=== PATIENT | female | born 1960 | race Two or more races ===

== ENCOUNTER 2020-12-15 13:57 | Outpatient (REF) | payer OTHER, SELFPAY ==
[2020-12-15 15:47] LABS: MANUAL DIFF FLAG NO
[2020-12-15 15:55] LABS: Basophils Percent Auto 0.4 % (0-2); Eosinophils Absolute Auto 0.1 X10*3/uL (0.0-0.4); Eosinophils Percent Auto 1.3 % (0-4); Hematocrit 39.1 % (37-47); Hemoglobin 12.3 g/dl (12.0-16.0); Imm Gran Abs Auto 0.03 X10*3/uL (0.00-0.03); Imm Gran Pct Auto 0.3 % (0.0-0.4); Lymphocytes Absolute Auto 3.9 X10*3/uL (1.2-4.9); Lymphocytes Percent Auto 41.9 % (20-40); Mean Corpuscular HGB Conc 31.5 g/dl (31.0-35.0); Mean Corpuscular Hemoglobin 30.3 pg (27.0-33.0); Mean Corpuscular Volume 96.3 fL (80-98); Mean Platelet Volume 11.1 fL (9.4-12.3); Monocytes Absolute Auto 0.5 X10*3/uL (0.1-1.2); Monocytes Percent Auto 5.6 % (2-11); Neutrophils Absolute Auto 4.7 X10*3/uL (2.0-8.3); Neutrophils Percent Auto 50.5 % (45-73); Platelet Count 228 X10*3/uL (160-400); Red Blood Count 4.06 X10*6/uL (4.20-5.50); Red Cell Distribution Width 14.1 % (11.0-16.0); White Blood Count 9.3 X10*3/uL (4.8-10.8)
[2020-12-15 16:21] LABS: Anion Gap 12 (12-20); Blood Urea Nitrogen 10 mg/dL (9-16); Calcium 9.8 mg/dL (8.4-10.2); Carbon Dioxide 28 mmol/L (22-29); Chloride 105 mmol/L (96-108); Estimated Glomerular Filt Rate > 60; Glucose Random 89 mg/dL (60-115); Potassium 4.2 mmol/L (3.3-5.1); Sodium 141 mmol/L (135-145)
[2020-12-15 16:46] LABS: Erythrocyte Sedimentation Rate 34 MM/HR (0-20)
[2020-12-16 20:51] LABS: Immunoglobulin E 14 kU/L (<OR=114)
[2020-12-17 15:46] LABS: Scleroderma 70 Antibody <1.0 NEG AI (<1.0 NEG)
[2020-12-17 16:02] LABS: Cyclic Citrullinated Peptide <16 UNITS
[2020-12-18 12:56] LABS: Angiotensin Converting Enzyme 61 U/L (9-67)
[2020-12-18 13:26] LABS: Anti Nuclear Antibody Screen NEGATIVE (NEGATIVE)
[2020-12-20 13:17] LABS: Asperg fumigatus Precip Abs NEGATIVE (NEGATIVE); Micropoly faeni Abs NEGATIVE (NEGATIVE); Pigeon serum Abs NEGATIVE (NEGATIVE); Saccharo pora viridis Abs NEGATIVE (NEGATIVE); Thermo candidus Abs NEGATIVE (NEGATIVE); Thermoa vulgaris #1 NEGATIVE (NEGATIVE)
== END 2020-12-15 13:58 | disposition home or self-care (01) ==
LOC: HO.LAB 13:57
PROVIDERS: PCP Physician Assistant; Visit Provider Hospitalist
DX: Z23 Encounter for immunization (principal); J84.9 Interstitial pulmonary disease, unspecified; R91.8 Other nonspecific abnormal finding of lung field; F17.200 Nicotine dependence, unspecified, uncomplicated; Z71.6 Tobacco abuse counseling
CPT/HCPCS: 36415; 80048; 82164; 82785; 85025; 85652; 86038; 86039; 86200; 86235; 86331; 86606; 86609; 90686; 99202

== ENCOUNTER 2021-01-22 14:15 | Outpatient (REF) | payer OTHER, SELFPAY ==
--- NOTE | 2021-01-22 17:25 | PFT_ITS ---
Forced vital capacity, FEV1, LCS34-23, and MVV are all normal. Post bronchodilator therapy, there is no significant change. Total lung capacity normal. Residual volume is slightly decreased. Diffusion capacity moderately decreased. CONCLUSION: Normal pulmonary function test without evidence of obstructive or restrictive pulmonary disorder. Moderate decrease in the diffusion capacity and residual volume may be due to technical factors are due to pulmonary vascular disease or nonspecific factors. Clinical correlation is recommended. MD JENIFER Zavala/LUZ / [id number]
== END 2021-01-22 14:16 | disposition home or self-care (01) ==
LOC: HO.RESP 14:15
PROVIDERS: PCP Physician Assistant; Visit Provider Hospitalist
DX: R91.8 Other nonspecific abnormal finding of lung field (principal); J84.9 Interstitial pulmonary disease, unspecified; J45.909 Unspecified asthma, uncomplicated; F17.200 Nicotine dependence, unspecified, uncomplicated
CPT/HCPCS: 94060; 94727; 94729; 99212

== ENCOUNTER → 2021-08-18 14:26 | Outpatient (BNVA) | payer OTHER, SELFPAY | PROVIDERS: PCP Physician Assistant; Visit Provider Hospitalist | DX: J84.9 Interstitial pulmonary disease, unspecified (principal); J45.909 Unspecified asthma, uncomplicated; R91.8 Other nonspecific abnormal finding of lung field; F17.200 Nicotine dependence, unspecified, uncomplicated; Z79.899 Other long term (current) drug therapy | CPT/HCPCS: 99212 ==

== ENCOUNTER 2021-10-28 12:41 | Outpatient (REF) | payer OTHER, SELFPAY ==
--- NOTE | ~2021-10-28 | CT_ITS ---
EXAMINATION: CT CHEST WITHOUT CONTRAST CLINICAL INFORMATION: Abnormal lung findings. COMPARISON: None TECHNIQUE: Multidetector volumetric CT imaging of the chest was done. Axial MIP volume rendering provided. Sagittal and coronal reformatted images were obtained. This CT examination was performed using dose optimization techniques as appropriate, variously including the following: *Automated exposure control *Adjustment of mA and/or kV according to patient size (this includes techniques or standardized protocols for targeted exams where dose is matched to indication/reason for exam; i.e. 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 LUNGS: The lungs are slightly hyperinflated with subpleural fine reticular stranding and some groundglass density in both lower lobes. No acute consolidation or mass seen. There is a calcified centimeter nodule left lower lobe anterobasal segment. There is bilateral lower lobe bronchiectasis without wall thickening or debris. Moderate groundglass attenuation and almost honeycombing appearance seen in the anterior segment of left upper lobe suspicious of chronic interstitial lung disease. MEDIASTINUM: The thyroid lobes are symmetrical and normal. The central trachea and the bronchi is widely patent. Heart size and the great vessels are normal caliber. There are coronary artery calcifications present. No pericardial effusion seen. No abnormal size mediastinal lymph nodes. PLEURA: No pleural effusion, thickening or calcification. AXILLA: Small shotty lymph nodes in the axilla. The chest wall is unremarkable. UPPER ABDOMEN: Visualized liver, spleen, pancreas unremarkable. OSSEOUS STRUCTURES: Unremarkable. CT/CT chest wo IV con IMPRESSION: 1. Bilateral interstitial lung disease with subpleural fine reticular thickening and groundglass attenuation suggestive of interstitial lung disease likely of UIP type. There is also involvement of the left upper lobe with groundglass attenuation and almost honeycombing. Correlate with clinical history. No acute pneumonic consolidation. 2. No abnormal mediastinal or hilar adenopathy. Fleischner guidelines were followed.
== END 2021-10-28 12:42 | disposition home or self-care (01) ==
LOC: HO.CT 12:41
PROVIDERS: PCP Physician Assistant; Visit Provider Hospitalist
DX: R91.8 Other nonspecific abnormal finding of lung field (principal)
CPT/HCPCS: 71250

== ENCOUNTER → 2021-11-27 13:01 | Outpatient (BNVA) | payer OTHER, SELFPAY | PROVIDERS: PCP Physician Assistant; Visit Provider Hospitalist | DX: J84.9 Interstitial pulmonary disease, unspecified (principal); R91.8 Other nonspecific abnormal finding of lung field; J45.909 Unspecified asthma, uncomplicated; F17.210 Nicotine dependence, cigarettes, uncomplicated | CPT/HCPCS: 99212 ==

== ENCOUNTER 2022-07-23 13:23 | Outpatient (REF) | payer MEDICAID, SELFPAY ==
--- NOTE | ~2022-07-23 | XR_ITS ---
EXAMINATION: XR CHEST CLINICAL INFORMATION: Dorsalgia COMPARISON: Chest CT October 28, 2021 (report only) TECHNIQUE: 2 views of the chest were obtained. FINDINGS: Cardiac silhouette is normal in size. The lungs are well aerated. There is no lobar consolidation. No pleural effusion or pneumothorax. Suspected small calcified granuloma the left lower lung. Mild degenerative changes of the spine. XR/XR chest 2V IMPRESSION: No acute pulmonary pathology.
== END 2022-07-23 13:24 | disposition home or self-care (01) ==
LOC: HO.XRAY 13:23
PROVIDERS: PCP Physician Assistant; Visit Provider Hospitalist
DX: J84.9 Interstitial pulmonary disease, unspecified (principal); R91.8 Other nonspecific abnormal finding of lung field; J45.909 Unspecified asthma, uncomplicated; F17.200 Nicotine dependence, unspecified, uncomplicated; Z71.6 Tobacco abuse counseling
CPT/HCPCS: 71046; 99212

== ENCOUNTER 2022-10-26 14:09 | Outpatient (AMB) | payer MEDICAID, SELFPAY ==
--- NOTE | 2022-10-26 14:29 | MHC.OFFVIS ---
Intake Vital Signs 10/26/22 14:31 Height 5 ft 1 in Weight 157 lb 10.088 oz BMI 29.8 Pulse 66 Pulse Source Pulse Oximeter Pulse Oximetry (%) 98 Oxygen Delivery Method Room Air Intake Visit Reasons: asthma Security System Analyst Required: No Allergies No Known Allergies [No Known Allergies*] Allergy (Unverified 10/26/22 14:32) HPI HPI Comments History of Present Illness Details The patient is a 62 year-old woman with a long history of tobacco dependency and COPD who apparently has been complaining of worsening dyspnea on exertion and cough. The patient states that recently she did undergo a CT scan of the chest as per the lung cancer screening program because she does have pulmonary nodules. She did follow-up with her primary care doctor who told her that if there were other changes suggesting of interstitial lung disease on the CT scan. Therefore she was referred to Pulmonary. On further questioning the site smoking she denies any other recreational drugs. She denies being exposed to any farm work or birds. The patient denies any mold in the house. She has tried to quit smoking but has been very hard for her. The patient is willing to try the Nicotrol inhaler to see if we can get her away from the smoke That is resulting in moles of the injury to her lungs In airways. I was able to personally review the CAT scans from 2018 and also 2020 with the patient. Back in 2018 she also had interstitial changes primarily in the periphery of her lungs bilaterally with some evidence of honeycombing in the periphery which is concerning. It appears to be also involving the bases but not as predominant. Does have a subtle appearance of usual interstitial pneumonia (UIP) versus a chronic eosinophilic pneumonia. The patient denies any rashes or any joint discomfort to suggest a connective tissue disease. However, this needs to be continued in the differential. I did also review her CT scan from 2020 demonstrating some interval progression of the subpleural process suggesting a progressive type of interstitial lung disease. Smoking can also result in pulmonary fibrosis the patient is aware that and she is motivated to quitting. She has minimal evidence of emphysema also noted. 01/22/2021 the patient is here for a pulmonary follow-up visit. Overall she is doing well from a respiratory status. She denies any worsening shortness of breath or any chest discomfort. She did undergo blood work recently we did reviewed. Her evaluation for interstitial lung disease was negative for any connective tissue conditions to hypersensitivity conditions. The patient also underwent pulmonary function studies demonstrating no obstructive nor restrictive ventilatory defects. Although, her total lung capacity was low normal. She however had a moderate diffusion impairment. Explained to the patient that will be need to continue monitoring closely for any progression. She is to call if any worsening respiratory symptoms arise. She is due for repeat CT scan of the chest based on the lung cancer screening program and July of 2021. as far as other potential triggers we did talk about reflux disease which she has. The patient will work on her reflux diet and will try to sleep elevated. In regards of her asthma the patient did have 1 episode where she woke up short of breath and chest tightness. She did get relief with her rescue inhaler. I do think that based on her symptoms is reasonable to start her on a maintenance inhaler. 08/18/2021 the patient is here for a pulmonary follow-up visit. Overall the patient continues to have shortness of breath and cough. Her symptoms have been getting worse but primarily because she ran out of her medication. Will make sure that she has all her medications available to avoid any rebound symptoms. In the meantime she has not heard from [facility] regarding her lung cancer screening program CT scan. We did review her CT scan that she had back in July 2020 with small pulmonary nodules but more concerning was a degree of interstitial lung disease as she has bilaterally in the periphery more in the mid lung area. Next week consistent with an UIP pattern IPF. But, still concerning. The patient did have a connective tissue disease workup in addition to hypersensitivity pneumonitis panel and workup was completely negative. Explained to the patient that smoking related interstitial lung conditions are indeed in differential. Therefore we need to work cardiac getting her to quit altogether. The patient also understands that if her interstitial lung disease worsens she may need to undergo a biopsy to further delineate the etiology. In the meantime the patient will be traveling abroad with family. She will work on her smoking cessation and hoping that she can quit we can repeat her CT scan in October to see if we see any improvement. 07/23/2022 the patient is here for a pulmonary follow-up visit. She continues to have dyspnea on exertion. Mild to moderate severity. Does get better with rest. She still struggling with her smoking. She understands that with her underlying interstitial lung disease it is likely the smoking will continue to make it worse. We did review her CT scan of the chest that she had in October 2021 again demonstrating the reticular changes consistent with pulmonary fibrosis primarily at the bases. This appears to be not UIP pattern. In addition to that though she does have some evidence of ground-glass opacities in the upper lung zones. The patient was supposed to start Wellbutrin but she never got at the pharmacy. However, she is still smoking and likely more. 10/26/2022 the patient is here for a pulmonary follow-up visit. She recently returned from [place]. While she was there she developed significant episode of respiratory distress. she was evaluated and treated. She is feeling better but not at her baseline. She is also complaining of back discomfort. Also is pleuritic in nature. Moderate severity. The patient unfortunately continues to smoke cigarettes. She understands that were pulmonary fibrosis and interstitial lung disease smoking is extremely harmful for her. Therefore, will go ahead and start her on Chantix. We did talk about the risks and benefits of the medication. She knows to monitor for depression. When she completes the starter pack she will call and I will send a regular maintenance dose. In the meantime her last CT scan last year October 2021 demonstrated significant pulmonary fibrosis very suggestive of UIP like pattern. Unfortunately this could be progressive disease. If indeed she does have probable UIP demonstrating any better progressive component of worsening lung capacity will consider antifibrotic agents for her. She will continue with the current respiratory therapy. On examination she also has some wheezing from her recent exacerbation therefore will put on small dose of prednisone to see if this provides her some relief. [facility] Medical History (Updated 07/23/22 @ 14:21 by Coleman Freitas MD) Asthma ILD (interstitial lung disease) Pulmonary nodules Tobacco dependence Social History (Updated 12/15/20 @ 14:44 by ESTEPHANIA Ott) Patient Tobacco Use Status: Current everyday Tobacco user Tobacco use type: Cigarette Years Smoked: Since 14 years old Review of Systems Const Denies night sweats ENT Denies change in voice, Denies lip swelling, Denies mouth pain, Reports nasal congestion, Reports nasal discharge and Denies tongue swelling Card Denies chest pain and Reports dyspnea on exertion Resp Reports cough, Reports dyspnea on exertion and Reports wheezing GI Reports dyspepsia and Reports heartburn Musc Reports back pain and Reports myalgias Neuro Denies Neuro-related abnormal movements Psych Denies no additional complaints Hilton/Lymph Denies easy bleeding and Denies lymphadenopathy Aller/Immun Denies lip swelling, Denies tongue swelling and Reports wheezing Physical Exam Vital Signs: Last Vital Signs Pulse 66 10/26/22 14:31 Pulse Ox 98 10/26/22 14:31 Oxygen Delivery Method Room Air 10/26/22 14:31 BMI result Body Mass Index 29.8 Const General: alert HEENT General nose exam: Abnormal external nose present and Nasal discharge present Eyes Pupils: Equal, round and reactive pupils present Neck Neck: Yes normal visual inspection, Yes full ROM and Yes no lymphadenopathy Chest Chest palpation & inspection: normal inspection of the chest Resp Auscultation: rales, wheezes and diminished lung sounds Cardio Rate: regular rate Rhythm: regular rhythm Heart sounds: S1 normal heart sound present and S2 normal heart sound present GI Palpation (GI): Soft to palpation and nontender Auscultation: normal bowel sounds General: Yes no CVA tenderness Back/Spine/Pelvis Back: no CVA tenderness Skin General skin exam: rashes and/or lesions noted Neuro Cranial nerves: Yes Equal, round and reactive pupils present Assessment & Plan Assessment & Plan (1) ILD (interstitial lung disease): Code(s): J84.9 - Interstitial pulmonary disease, unspecified (2) Tobacco dependence: Code(s): F17.200 - Nicotine dependence, unspecified, uncomplicated (3) Pulmonary nodules: Code(s): R91.8 - Other nonspecific abnormal finding of lung field (4) Asthma: Code(s): J45.909 - Unspecified asthma, uncomplicated Plan continue Symbicort BRIONNA as needed start low dose prednisone taper Tobacco cessation: start Chantix, will monitor for depressive symptoms CT chest PFTs Maybe a good candidate for OFEV if there is any evidence of progressive pulmonary fibrotic changes Reflux diet F/U 2-3 months Orders: Orders CT chest wo IV con Today J84.9 - Interstitial pulmonary disease, unspecified, R91.8 - Other nonspecific abnormal finding of lung field PFT pulmonary function test Today J84.9 - Interstitial pulmonary disease, unspecified, R91.8 - Other nonspecific abnormal finding of lung field Medications: New prednisone PO daily; Take 2 tab by mouth x 7 days, 1 tab daily x 7 days 14 days 21 tabs 0RF varenicline (Chantix Starting Month Box) PO PER PKG DIR 42 ea 0RF Refilled albuterol sulfate 2.5 mg (3 mL) inhalation Q6H 30 days PRN 180 mL 11RF shortness of breath or wheezing Quality Reporting (2019) Adult ([facility] ) Smoking risk assessment performed?: Yes Patient Tobacco Use Status: Current everyday Tobacco user Coding Level of Care Code Est Pt Level 4 (99859) Diagnoses ILD (interstitial lung disease) J84.9 Tobacco dependence F17.200 Pulmonary nodules R91.8 Asthma J45.909 Time Spent (min) 18
[2022-10-26 14:31] VITALS: PULSE 66; O2SAT 98; BMI 29.8
== END 2022-10-26 14:48 | disposition home or self-care (01) ==
PROVIDERS: PCP Physician Assistant; Visit Provider Hospitalist
DX: J84.9 Interstitial pulmonary disease, unspecified (principal); F17.200 Nicotine dependence, unspecified, uncomplicated; R91.8 Other nonspecific abnormal finding of lung field; J45.909 Unspecified asthma, uncomplicated
CPT/HCPCS: 99214

== ENCOUNTER → 2022-10-26 14:09 | Outpatient (BNVA) | payer MEDICAID, SELFPAY | PROVIDERS: PCP Physician Assistant; Visit Provider Hospitalist | DX: J84.9 Interstitial pulmonary disease, unspecified (principal); J45.909 Unspecified asthma, uncomplicated; R91.8 Other nonspecific abnormal finding of lung field; F17.210 Nicotine dependence, cigarettes, uncomplicated; Z79.899 Other long term (current) drug therapy | CPT/HCPCS: 99212 ==

== ENCOUNTER 2022-12-01 07:54 | Outpatient (REF) | payer MEDICAID, SELFPAY ==
--- NOTE | ~2022-12-01 | CT_ITS ---
EXAMINATION: CT CHEST WITHOUT CONTRAST CLINICAL INFORMATION: Interstitial pulmonary disease. COMPARISON: CT chest dated 10/28/2021. TECHNIQUE: Multidetector volumetric CT imaging of the chest was done. Axial MIP volume rendering provided. Sagittal and coronal reformatted images were obtained. This CT examination was performed using dose optimization techniques as appropriate, variously including the following: *Automated exposure control *Adjustment of mA and/or kV according to patient size (this includes techniques or standardized protocols for targeted exams where dose is matched to indication/reason for exam; i.e. 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 LUNGS: Again, there are increased subpleural reticular markings. There is honeycombing noted, most pronounced anteriorly within the upper lobes, left greater than right. There is focal fibrosis and bronchiectasis within the posterior basal segments of the lower lobes. There are faint bibasilar subpleural groundglass opacities redemonstrated. Within the anterior basal segment of the right lower lobe (12:104), a stable 2 mm noncalcified nodule is seen. Within the left upper lobe laterally (12:58), a stable 3 mm noncalcified nodule is seen. A coarse benign, calcified lymph node is applied to the lower left major fissure (12:127). There is no mass or gross infiltrate. There is no generalized small airway thickening. The central airways appear patent. MEDIASTINUM: The thyroid is unremarkable. There is no thoracic aortic aneurysm. There are mild atherosclerotic calcifications of the great vessel origins and thoracic aorta. No mediastinal or hilar lymphadenopathy is seen. CORONARY ARTERY CALCIFICATION: Moderately severe. PLEURA: There is no pleural effusion. No pleural mass or thickening. AXILLA: No lymphadenopathy. UPPER ABDOMEN: Unremarkable. OSSEOUS STRUCTURES: There is marked lower thoracic spondylosis extending from T6-T7 to T9-T10. No acute or aggressive osseous finding is noted. CT/CT chest wo IV con IMPRESSION: 1. There are stable findings of chronic interstitial lung disease with upper lobe predominant honeycombing and bibasilar predominant peripheral faint groundglass opacities. Again, the appearance favors usual interstitial pneumonia (UIP). 2. Bibasilar bronchiectatic foci are redemonstrated. 3. No mass or infiltrate is seen. 4. There are benign, stable tiny bilateral lung nodules, as detailed. According to the UPDATED 2017 Fleischner Society recommendations, the advised follow-up imaging for solid nodules < 6 mm is: LOW RISK PATIENT: No routine follow-up. HIGH RISK PATIENT: Optional CT at 12 months. 5. There is multi-level lower thoracic spondylosis. No acute or aggressive osseous finding is noted. Fleischner guidelines were followed.
== END 2022-12-01 07:55 | disposition home or self-care (01) ==
LOC: HO.CT 07:54
PROVIDERS: PCP Physician Assistant; Visit Provider Hospitalist
DX: J84.9 Interstitial pulmonary disease, unspecified (principal); R91.8 Other nonspecific abnormal finding of lung field
CPT/HCPCS: 71250

== ENCOUNTER 2022-12-10 13:35 | Outpatient (AMB) | payer MEDICAID, SELFPAY ==
[2022-12-10 14:09] VITALS: PULSE 65; O2SAT 97; BMI 29.8
--- NOTE | 2022-12-10 14:09 | MHC.OFFVIS ---
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 The patient states that recently she did undergo a CT scan of the chest as per the lung cancer screening program because she does have pulmonary nodules. She did follow-up with her primary care doctor who told her that if there were other changes suggesting of interstitial lung disease on the CT scan. Therefore she was referred to Pulmonary. On further questioning the site smoking she denies any other recreational drugs. She denies being exposed to any farm work or birds. The patient denies any mold in the house. She has tried to quit smoking but has been very hard for her. The patient is willing to try the Nicotrol inhaler to see if we can get her away from the smoke That is resulting in moles of the injury to her lungs In airways. I was able to personally review the CAT scans from 2018 and also 2020 with the patient. Back in 2018 she also had interstitial changes primarily in the periphery of her lungs bilaterally with some evidence of honeycombing in the periphery which is concerning. It appears to be also involving the bases but not as predominant. Does have a subtle appearance of usual interstitial pneumonia (UIP) versus a chronic eosinophilic pneumonia. The patient denies any rashes or any joint discomfort to suggest a connective tissue disease. However, this needs to be continued in the differential. I did also review her CT scan from 2020 demonstrating some interval progression of the subpleural process suggesting a progressive type of interstitial lung disease. Smoking can also result in pulmonary fibrosis the patient is aware that and she is motivated to quitting. She has minimal evidence of emphysema also noted. 01/22/2021 the patient is here for a pulmonary follow-up visit. Overall she is doing well from a respiratory status. She denies any worsening shortness of breath or any chest discomfort. She did undergo blood work recently we did reviewed. Her evaluation for interstitial lung disease was negative for any connective tissue conditions to hypersensitivity conditions. The patient also underwent pulmonary function studies demonstrating no obstructive nor restrictive ventilatory defects. Although, her total lung capacity was low normal. She however had a moderate diffusion impairment. Explained to the patient that will be need to continue monitoring closely for any progression. She is to call if any worsening respiratory symptoms arise. She is due for repeat CT scan of the chest based on the lung cancer screening program and July of 2021. as far as other potential triggers we did talk about reflux disease which she has. The patient will work on her reflux diet and will try to sleep elevated. In regards of her asthma the patient did have 1 episode where she woke up short of breath and chest tightness. She did get relief with her rescue inhaler. I do think that based on her symptoms is reasonable to start her on a maintenance inhaler. 08/18/2021 the patient is here for a pulmonary follow-up visit. Overall the patient continues to have shortness of breath and cough. Her symptoms have been getting worse but primarily because she ran out of her medication. Will make sure that she has all her medications available to avoid any rebound symptoms. In the meantime she has not heard from [facility] regarding her lung cancer screening program CT scan. We did review her CT scan that she had back in July 2020 with small pulmonary nodules but more concerning was a degree of interstitial lung disease as she has bilaterally in the periphery more in the mid lung area. Next week consistent with an UIP pattern IPF. But, still concerning. The patient did have a connective tissue disease workup in addition to hypersensitivity pneumonitis panel and workup was completely negative. Explained to the patient that smoking related interstitial lung conditions are indeed in differential. Therefore we need to work cardiac getting her to quit altogether. The patient also understands that if her interstitial lung disease worsens she may need to undergo a biopsy to further delineate the etiology. In the meantime the patient will be traveling abroad with family. She will work on her smoking cessation and hoping that she can quit we can repeat her CT scan in October to see if we see any improvement. 07/23/2022 the patient is here for a pulmonary follow-up visit. She continues to have dyspnea on exertion. Mild to moderate severity. Does get better with rest. She still struggling with her smoking. She understands that with her underlying interstitial lung disease it is likely the smoking will continue to make it worse. We did review her CT scan of the chest that she had in October 2021 again demonstrating the reticular changes consistent with pulmonary fibrosis primarily at the bases. This appears to be not UIP pattern. In addition to that though she does have some evidence of ground-glass opacities in the upper lung zones. The patient was supposed to start Wellbutrin but she never got at the pharmacy. However, she is still smoking and likely more. 10/26/2022 the patient is here for a pulmonary follow-up visit. She recently returned from [place]. While she was there she developed significant episode of respiratory distress. she was evaluated and treated. She is feeling better but not at her baseline. She is also complaining of back discomfort. Also is pleuritic in nature. Moderate severity. The patient unfortunately continues to smoke cigarettes. She understands that were pulmonary fibrosis and interstitial lung disease smoking is extremely harmful for her. Therefore, will go ahead and start her on Chantix. We did talk about the risks and benefits of the medication. She knows to monitor for depression. When she completes the starter pack she will call and I will send a regular maintenance dose. In the meantime her last CT scan last year October 2021 demonstrated significant pulmonary fibrosis very suggestive of UIP like pattern. Unfortunately this could be progressive disease. If indeed she does have probable UIP demonstrating any better progressive component of worsening lung capacity will consider antifibrotic agents for her. She will continue with the current respiratory therapy. On examination she also has some wheezing from her recent exacerbation therefore will put on small dose of prednisone to see if this provides her some relief. 12/10/2022 the patient is here for a pulmonary follow-up visit. Overall the patient has been doing better from the asthma standpoint. Denies any significant wheezing. She is working her smoking. She said hard time with. The patient does have dyspnea on exertion. Typically mild severity. We did review her recent CT scan of the chest. Personally by me. It appears that her interstitial lung disease has not significantly changed from October 2021 which is reassuring. No need for antifibrotic agents at this time. Based on the fact that she is feeling better will hold off on the PFTs. Will have her come back in 6 months and at that point to the pulmonary function studies to see if there is any progressive disease. She does have evidence of pulmonary fibrosis and at this point without a clear etiology. If indeed we see any progression we would need to consider the possibility of IPF and would at that point start antifibrotic agents. She will continue with current respiratory therapy at this time. Will follow-up in 6 months after her PFTs. [facility] Medical History (Updated 12/13/22 @ 08:14 by Coleman Freitas MD) Asthma Pulmonary nodules Tobacco dependence ILD (interstitial lung disease) Social History (Updated 12/15/20 @ 14:44 by ESTEPHANIA Ott) Patient Tobacco Use Status: Current everyday Tobacco user Tobacco use type: Cigarette Years Smoked: Since 14 years old Review of Systems Const Denies night sweats ENT Denies change in voice, Denies lip swelling, Denies mouth pain, Reports nasal congestion, Reports nasal discharge and Denies tongue swelling Card Denies chest pain and Reports dyspnea on exertion Resp Reports cough and Reports dyspnea on exertion GI Reports dyspepsia and Reports heartburn Musc Reports back pain and Reports myalgias Neuro Denies Neuro-related abnormal movements Psych Denies no additional complaints Hilton/Lymph Denies easy bleeding and Denies lymphadenopathy Aller/Immun Denies lip swelling and Denies tongue swelling Physical Exam Vital Signs: Last Vital Signs Pulse 65 12/10/22 14:09 Pulse Ox 97 12/10/22 14:09 Oxygen Delivery Method Room Air 12/10/22 14:09 BMI result Body Mass Index 29.8 Const General: alert HEENT General nose exam: Abnormal external nose present and Nasal discharge present Eyes Pupils: Equal, round and reactive pupils present Neck Neck: Yes normal visual inspection, Yes full ROM and Yes no lymphadenopathy Chest Chest palpation & inspection: normal inspection of the chest Resp Auscultation: rales, no wheezes and diminished lung sounds Cardio Rate: regular rate Rhythm: regular rhythm Heart sounds: S1 normal heart sound present and S2 normal heart sound present GI Palpation (GI): Soft to palpation and nontender Auscultation: normal bowel sounds General: Yes no CVA tenderness Back/Spine/Pelvis Back: no CVA tenderness Skin General skin exam: rashes and/or lesions noted Neuro Cranial nerves: Yes Equal, round and reactive pupils present Assessment & Plan Assessment & Plan (1) ILD (interstitial lung disease): Code(s): J84.9 - Interstitial pulmonary disease, unspecified (2) Tobacco dependence: Code(s): F17.200 - Nicotine dependence, unspecified, uncomplicated (3) Pulmonary nodules: Code(s): R91.8 - Other nonspecific abnormal finding of lung field (4) Asthma: Code(s): J45.909 - Unspecified asthma, uncomplicated Qualifiers: Asthma severity: moderate Asthma persistence: persistent Asthma complication type: uncomplicated Qualified Code(s): J45.40 - Moderate persistent asthma, uncomplicated Plan continue Symbicort BRIONNA as needed stopped prednisone Tobacco cessation: did not start chantix start azithromycin MWF PFTs in 6 months Maybe a good candidate for OFEV if there is any evidence of progressive pulmonary fibrotic changes. No changes at this time. Reflux diet F/U 6 months Medications: New nicotine 1 patch transdermal DAILY 28 days 28 ea 3RF azithromycin Take 1 tablet on Tuesday/Tuesday/Tuesday 250 mg PO 3XW 28 days 12 tabs 6RF K21.9 - Gastro-esophageal reflux disease without esophagitis Refilled Symbicort 160-4.5 mcg/actuation (budesonide-formoterol) 2 puffs inhalation BID 30 days 10.2 grams 11RF NS J44.9 - Chronic obstructive pulmonary disease, unspecified albuterol sulfate 90 mcg/actuation (ProAir HFA) 2 puffs inhalation Q6H PRN 8.5 grams 11RF shortness of breath or wheezing Quality Reporting (2019) Adult ([facility] ) Smoking risk assessment performed?: Yes Patient Tobacco Use Status: Current everyday Tobacco user Coding Level of Care Code Est Pt Level 4 (76681) Diagnoses ILD (interstitial lung disease) J84.9 Tobacco dependence F17.200 Pulmonary nodules R91.8 Moderate persistent asthma without complication J45.40 Asthma severity: moderate Asthma persistence: persistent Asthma complication type: uncomplicated Time Spent (min) 18
== END 2022-12-10 14:42 | disposition home or self-care (01) ==
PROVIDERS: PCP Physician Assistant; Visit Provider Hospitalist
DX: J84.9 Interstitial pulmonary disease, unspecified (principal); F17.200 Nicotine dependence, unspecified, uncomplicated; R91.8 Other nonspecific abnormal finding of lung field; J45.40 Moderate persistent asthma, uncomplicated
CPT/HCPCS: 99214

== ENCOUNTER → 2022-12-10 13:35 | Outpatient (BNVA) | payer MEDICAID, SELFPAY | PROVIDERS: PCP Physician Assistant; Visit Provider Hospitalist | DX: J84.9 Interstitial pulmonary disease, unspecified (principal); J45.40 Moderate persistent asthma, uncomplicated; R91.8 Other nonspecific abnormal finding of lung field; F17.200 Nicotine dependence, unspecified, uncomplicated | CPT/HCPCS: 99212 ==

== ENCOUNTER 2023-08-09 12:56 | Outpatient (AMB) | payer MEDICAID, SELFPAY ==
--- NOTE | 2023-08-09 12:58 | MHC.OFFVIS ---
Vital Signs 08/09/23 12:59 Height 5 ft 1 in Weight 157 lb 10.088 oz BMI 29.8 Pulse 56 Pulse Source Pulse Oximeter Pulse Oximetry (%) 98 Oxygen Delivery Method Room Air Intake Visit Reasons: asthma Forms Designer Required: No Allergies No Known Allergies [No Known Allergies*] Allergy (Unverified 08/09/23 13:00) HPI Comments Details: The patient is a 63 year-old woman with a long history of tobacco dependency and COPD who apparently has been complaining of worsening dyspnea on exertion and cough. The patient states that recently she did undergo a CT scan of the chest as per the lung cancer screening program because she does have pulmonary nodules. She did follow-up with her primary care doctor who told her that if there were other changes suggesting of interstitial lung disease on the CT scan. Therefore she was referred to Pulmonary. On further questioning the site smoking she denies any other recreational drugs. She denies being exposed to any farm work or birds. The patient denies any mold in the house. She has tried to quit smoking but has been very hard for her. The patient is willing to try the Nicotrol inhaler to see if we can get her away from the smoke That is resulting in moles of the injury to her lungs In airways. I was able to personally review the CAT scans from 2018 and also 2020 with the patient. Back in 2018 she also had interstitial changes primarily in the periphery of her lungs bilaterally with some evidence of honeycombing in the periphery which is concerning. It appears to be also involving the bases but not as predominant. Does have a subtle appearance of usual interstitial pneumonia (UIP) versus a chronic eosinophilic pneumonia. The patient denies any rashes or any joint discomfort to suggest a connective tissue disease. However, this needs to be continued in the differential. I did also review her CT scan from 2020 demonstrating some interval progression of the subpleural process suggesting a progressive type of interstitial lung disease. Smoking can also result in pulmonary fibrosis the patient is aware that and she is motivated to quitting. She has minimal evidence of emphysema also noted. 01/22/2021 the patient is here for a pulmonary follow-up visit. Overall she is doing well from a respiratory status. She denies any worsening shortness of breath or any chest discomfort. She did undergo blood work recently we did reviewed. Her evaluation for interstitial lung disease was negative for any connective tissue conditions to hypersensitivity conditions. The patient also underwent pulmonary function studies demonstrating no obstructive nor restrictive ventilatory defects. Although, her total lung capacity was low normal. She however had a moderate diffusion impairment. Explained to the patient that will be need to continue monitoring closely for any progression. She is to call if any worsening respiratory symptoms arise. She is due for repeat CT scan of the chest based on the lung cancer screening program and July of 2021. as far as other potential triggers we did talk about reflux disease which she has. The patient will work on her reflux diet and will try to sleep elevated. In regards of her asthma the patient did have 1 episode where she woke up short of breath and chest tightness. She did get relief with her rescue inhaler. I do think that based on her symptoms is reasonable to start her on a maintenance inhaler. 08/18/2021 the patient is here for a pulmonary follow-up visit. Overall the patient continues to have shortness of breath and cough. Her symptoms have been getting worse but primarily because she ran out of her medication. Will make sure that she has all her medications available to avoid any rebound symptoms. In the meantime she has not heard from [facility] regarding her lung cancer screening program CT scan. We did review her CT scan that she had back in July 2020 with small pulmonary nodules but more concerning was a degree of interstitial lung disease as she has bilaterally in the periphery more in the mid lung area. Next week consistent with an UIP pattern IPF. But, still concerning. The patient did have a connective tissue disease workup in addition to hypersensitivity pneumonitis panel and workup was completely negative. Explained to the patient that smoking related interstitial lung conditions are indeed in differential. Therefore we need to work cardiac getting her to quit altogether. The patient also understands that if her interstitial lung disease worsens she may need to undergo a biopsy to further delineate the etiology. In the meantime the patient will be traveling [place] with family. She will work on her smoking cessation and hoping that she can quit we can repeat her CT scan in October to see if we see any improvement. 07/23/2022 the patient is here for a pulmonary follow-up visit. She continues to have dyspnea on exertion. Mild to moderate severity. Does get better with rest. She still struggling with her smoking. She understands that with her underlying interstitial lung disease it is likely the smoking will continue to make it worse. We did review her CT scan of the chest that she had in October 2021 again demonstrating the reticular changes consistent with pulmonary fibrosis primarily at the bases. This appears to be not UIP pattern. In addition to that though she does have some evidence of ground-glass opacities in the upper lung zones. The patient was supposed to start Wellbutrin but she never got at the pharmacy. However, she is still smoking and likely more. 10/26/2022 the patient is here for a pulmonary follow-up visit. She recently returned from [place]. While she was there she developed significant episode of respiratory distress. she was evaluated and treated. She is feeling better but not at her baseline. She is also complaining of back discomfort. Also is pleuritic in nature. Moderate severity. The patient unfortunately continues to smoke cigarettes. She understands that were pulmonary fibrosis and interstitial lung disease smoking is extremely harmful for her. Therefore, will go ahead and start her on Chantix. We did talk about the risks and benefits of the medication. She knows to monitor for depression. When she completes the starter pack she will call and I will send a regular maintenance dose. In the meantime her last CT scan last year October 2021 demonstrated significant pulmonary fibrosis very suggestive of UIP like pattern. Unfortunately this could be progressive disease. If indeed she does have probable UIP demonstrating any better progressive component of worsening lung capacity will consider antifibrotic agents for her. She will continue with the current respiratory therapy. On examination she also has some wheezing from her recent exacerbation therefore will put on small dose of prednisone to see if this provides her some relief. 12/10/2022 the patient is here for a pulmonary follow-up visit. Overall the patient has been doing better from the asthma standpoint. Denies any significant wheezing. She is working her smoking. She said hard time with. The patient does have dyspnea on exertion. Typically mild severity. We did review her recent CT scan of the chest. Personally by me. It appears that her interstitial lung disease has not significantly changed from October 2021 which is reassuring. No need for antifibrotic agents at this time. Based on the fact that she is feeling better will hold off on the PFTs. Will have her come back in 6 months and at that point to the pulmonary function studies to see if there is any progressive disease. She does have evidence of pulmonary fibrosis and at this point without a clear etiology. If indeed we see any progression we would need to consider the possibility of IPF and would at that point start antifibrotic agents. She will continue with current respiratory therapy at this time. Will follow-up in 6 months after her PFTs. 08/09/2023 the patient is here for a pulmonary follow-up visit. The patient unfortunately continues to smoke cigarettes. She has been struggling. She did not try the Chantix. She has been on the Wellbutrin however. The patient did not have her PFTs done. We again looked at her CT scan demonstrating worsening interstitial lung disease suggesting of a UIP pattern. This could be concerning. Will go ahead and repeat her CT scan sometime in the fall of 2023. Will give her enough time to quit smoking. I did send her the nicotine patch and she can not have the breakthrough nicotine gum. The patient also will continue her respiratory medications. She has responded well to the azithromycin 3 times a week for chronic bronchitis will continue that for now. She did not have her PFTs will have those done closer to her next appointment. If she has any worsening symptoms she will call for an earlier assessment. PENDING SALE TO [facility] Medical History (Updated 12/13/22 @ 08:14 by Coleman Freitas MD) Asthma Pulmonary nodules Tobacco dependence ILD (interstitial lung disease) Social History (Updated 12/15/20 @ 14:44 by ESTEPHANIA Ott) Patient Tobacco Use Status: Current everyday Tobacco user Tobacco use type: Cigarette Years Smoked: Since 14 years old Review of Systems Const Denies night sweats ENT Denies change in voice, Denies lip swelling, Denies mouth pain, Reports nasal congestion, Reports nasal discharge and Denies tongue swelling Card Denies chest pain and Reports dyspnea on exertion Resp Reports chest congestion, Reports cough and Reports dyspnea on exertion GI Reports dyspepsia and Reports heartburn Musc Reports back pain and Reports myalgias Neuro Denies Neuro-related abnormal movements Psych Denies no additional complaints Hilton/Lymph Denies easy bleeding and Denies lymphadenopathy Aller/Immun Denies lip swelling and Denies tongue swelling Physical Exam Vital Signs: Last Vital Signs Pulse 56 08/09/23 12:59 Pulse Ox 98 08/09/23 12:59 Oxygen Delivery Method Room Air 08/09/23 12:59 BMI result Body Mass Index 29.8 Const General: alert HEENT General nose exam: Abnormal external nose present and Nasal discharge present Eyes Pupils: Equal, round and reactive pupils present Neck Neck: Yes normal visual inspection, Yes full ROM and Yes no lymphadenopathy Chest Chest palpation & inspection: normal inspection of the chest Resp Auscultation: rales, no wheezes and diminished lung sounds Cardio Rate: regular rate Rhythm: regular rhythm Heart sounds: S1 normal heart sound present and S2 normal heart sound present GI Palpation (GI): Soft to palpation and nontender Auscultation: normal bowel sounds General: Yes no CVA tenderness Back/Spine/Pelvis Back: no CVA tenderness Skin General skin exam: rashes and/or lesions noted Neuro Cranial nerves: Yes Equal, round and reactive pupils present Quality Reporting (2019) Adult ([facility] 13804/14/68) Smoking risk assessment performed?: Yes Patient Tobacco Use Status: Current everyday Tobacco user Assessment & Plan Assessment & Plan (1) ILD (interstitial lung disease): Code(s): J84.9 - Interstitial pulmonary disease, unspecified Category: Medical (2) Tobacco dependence: Code(s): F17.200 - Nicotine dependence, unspecified, uncomplicated Category: Medical (3) Pulmonary nodules: Code(s): R91.8 - Other nonspecific abnormal finding of lung field Category: Medical (4) Asthma: Code(s): J45.909 - Unspecified asthma, uncomplicated Category: Medical Qualifiers: Asthma complication type: uncomplicated Asthma persistence: persistent Asthma severity: moderate Qualified Code(s): J45.40 - Moderate persistent asthma, uncomplicated Plan continue Symbicort BRIONNA as needed Tobacco cessation: did not start chantix continue azithromycin MWF PFTs in [address] chest in 6 months Tobacco cessation: patch, nicorette gum, wellbutrin Maybe a good candidate for OFEV if there is any evidence of progressive pulmonary fibrotic changes. No changes at this time. Reflux diet F/U 6 months Orders: Orders CT chest wo IV con 01/09/24 J84.9 - Interstitial pulmonary disease, unspecified Medications: New nicotine 1 patch transdermal DAILY 28 days 28 ea 6RF nicotine (polacrilex) (Nicorette) 2 mg buccal Q2H 30 days 50 ea 3RF Refilled Symbicort 160-4.5 mcg/actuation (budesonide-formoterol) 2 puffs inhalation BID 30 days 10.2 grams 11RF NS J44.9 - Chronic obstructive pulmonary disease, unspecified bupropion HCl 150 mg (2 x 75 mg) PO BID 120 tabs 11RF azithromycin Take 1 tablet on Tuesday/Tuesday/Tuesday 250 mg PO 3XW 28 days 12 tabs 6RF K21.9 - Gastro-esophageal reflux disease without esophagitis Coding Level of Care Code Est Pt Level 4 (10891) Diagnoses ILD (interstitial lung disease) J84.9 Tobacco dependence F17.200 Pulmonary nodules R91.8 Moderate persistent asthma without complication J45.40 Asthma complication type: uncomplicated Asthma persistence: persistent Asthma severity: moderate Time Spent (min) 17
[2023-08-09 12:59] VITALS: PULSE 56; O2SAT 98; BMI 29.8
== END 2023-08-09 13:21 | disposition home or self-care (01) ==
PROVIDERS: PCP Physician Assistant; Referring Provider Physician Assistant; Visit Provider Hospitalist
DX: J84.9 Interstitial pulmonary disease, unspecified (principal); F17.200 Nicotine dependence, unspecified, uncomplicated; R91.8 Other nonspecific abnormal finding of lung field; J45.40 Moderate persistent asthma, uncomplicated
CPT/HCPCS: 99214

== ENCOUNTER → 2023-08-09 12:56 | Outpatient (BNVA) | payer MEDICAID, SELFPAY | PROVIDERS: PCP Physician Assistant; Visit Provider Hospitalist | DX: J84.9 Interstitial pulmonary disease, unspecified (principal); J45.40 Moderate persistent asthma, uncomplicated; R91.8 Other nonspecific abnormal finding of lung field; F17.210 Nicotine dependence, cigarettes, uncomplicated | CPT/HCPCS: 99212 ==

== ENCOUNTER 2023-10-14 16:33 | Outpatient (REF) | payer MEDICAID, SELFPAY ==
--- NOTE | ~2023-10-14 | CT_ITS ---
EXAMINATION: CT CHEST WITHOUT CONTRAST CLINICAL INFORMATION: Interstitial pulmonary disease. COMPARISON: CT dated December 01, 2022 TECHNIQUE: Multidetector volumetric CT imaging of the chest was done. Axial MIP volume rendering provided. Sagittal and coronal reformatted images were obtained. This CT examination was performed using dose optimization techniques as appropriate, variously including the following: *Automated exposure control *Adjustment of mA and/or kV according to patient size (this includes techniques or standardized protocols for targeted exams where dose is matched to indication/reason for exam; i.e. extremities or head) *Use of iterative reconstruction technique DLP: 130 mGy-cm FINDINGS: LUNGS: Honeycombing, peripheral upper and lower lobes with cluster of bronchiectasis in the peripheral lung bases. 5 mm calcified pulmonary nodule, left lung base. No consolidation. MEDIASTINUM: Nonspecific prominent lymph nodes, mediastinum. No pericardial effusion. Calcified plaque thoracic aorta and its main branches. No aneurysm, thoracic aorta. CORONARY ARTERY CALCIFICATION: Calcified plaques in the coronary arteries. PLEURA: No pleural effusion. No pneumothorax. AXILLA: No lymphadenopathy. UPPER ABDOMEN: Food contents into the stomach. Calcified plaque in the proximal/origin of the main renal. OSSEOUS STRUCTURES: Multilevel spondylosis. Osteopenia versus osteoporosis. No acute fracture or listhesis. CT/CT chest wo IV con IMPRESSION: Interstitial lung disease. Consider usual interstitial lung disease in the correct clinical settings. Overall stable. Fleischner guidelines were followed. Electronically signed by: Lito Banks MD 12/21/2023 03:35 PM EDT
== END 2023-10-14 16:34 | disposition home or self-care (01) ==
LOC: HO.CT 16:33
PROVIDERS: PCP Physician Assistant; Visit Provider Hospitalist
DX: J84.9 Interstitial pulmonary disease, unspecified (principal)
CPT/HCPCS: 71250

== ENCOUNTER → 2023-10-14 16:36 | Outpatient (BNV) | payer MEDICAID, SELFPAY | PROVIDERS: PCP Physician Assistant; Visit Provider Radiology Diagnostic Radiology | DX: J84.9 Interstitial pulmonary disease, unspecified (principal) | CPT/HCPCS: 71250 ==

== ENCOUNTER 2023-12-15 09:55 | Outpatient (AMB) | payer MEDICAID, SELFPAY ==
--- NOTE | 2023-12-15 10:10 | MHC.OFFVIS ---
Vital Signs 12/15/23 10:11 Height 5 ft 1 in Weight 157 lb 10.088 oz BMI 29.8 BP 124/68 Blood Pressure Location Lt brachial Position Sitting Pulse 63 Pulse Source Pulse Oximeter Pulse Oximetry (%) 99 Oxygen Delivery Method Room Air Intake Visit Reasons: Asthma Background Check Coordinator Required: No Allergies No Known Allergies [No Known Allergies*] Allergy (Unverified 12/15/23 10:11) HPI Comments Details: The patient is a 63 year-old woman with a long history of tobacco dependency and COPD who apparently has been complaining of worsening dyspnea on exertion and cough. The patient states that recently she did undergo a CT scan of the chest as per the lung cancer screening program because she does have pulmonary nodules. She did follow-up with her primary care doctor who told her that if there were other changes suggesting of interstitial lung disease on the CT scan. Therefore she was referred to Pulmonary. On further questioning the site smoking she denies any other recreational drugs. She denies being exposed to any farm work or birds. The patient denies any mold in the house. She has tried to quit smoking but has been very hard for her. The patient is willing to try the Nicotrol inhaler to see if we can get her away from the smoke That is resulting in moles of the injury to her lungs In airways. I was able to personally review the CAT scans from 2017 and also 2020 with the patient. Back in 2018 she also had interstitial changes primarily in the periphery of her lungs bilaterally with some evidence of honeycombing in the periphery which is concerning. It appears to be also involving the bases but not as predominant. Does have a subtle appearance of usual interstitial pneumonia (UIP) versus a chronic eosinophilic pneumonia. The patient denies any rashes or any joint discomfort to suggest a connective tissue disease. However, this needs to be continued in the differential. I did also review her CT scan from 2020 demonstrating some interval progression of the subpleural process suggesting a progressive type of interstitial lung disease. Smoking can also result in pulmonary fibrosis the patient is aware that and she is motivated to quitting. She has minimal evidence of emphysema also noted. 01/22/2021 the patient is here for a pulmonary follow-up visit. Overall she is doing well from a respiratory status. She denies any worsening shortness of breath or any chest discomfort. She did undergo blood work recently we did reviewed. Her evaluation for interstitial lung disease was negative for any connective tissue conditions to hypersensitivity conditions. The patient also underwent pulmonary function studies demonstrating no obstructive nor restrictive ventilatory defects. Although, her total lung capacity was low normal. She however had a moderate diffusion impairment. Explained to the patient that will be need to continue monitoring closely for any progression. She is to call if any worsening respiratory symptoms arise. She is due for repeat CT scan of the chest based on the lung cancer screening program and July of 2021. as far as other potential triggers we did talk about reflux disease which she has. The patient will work on her reflux diet and will try to sleep elevated. In regards of her asthma the patient did have 1 episode where she woke up short of breath and chest tightness. She did get relief with her rescue inhaler. I do think that based on her symptoms is reasonable to start her on a maintenance inhaler. 08/18/2021 the patient is here for a pulmonary follow-up visit. Overall the patient continues to have shortness of breath and cough. Her symptoms have been getting worse but primarily because she ran out of her medication. Will make sure that she has all her medications available to avoid any rebound symptoms. In the meantime she has not heard from [facility] regarding her lung cancer screening program CT scan. We did review her CT scan that she had back in July 2020 with small pulmonary nodules but more concerning was a degree of interstitial lung disease as she has bilaterally in the periphery more in the mid lung area. Next week consistent with an UIP pattern IPF. But, still concerning. The patient did have a connective tissue disease workup in addition to hypersensitivity pneumonitis panel and workup was completely negative. Explained to the patient that smoking related interstitial lung conditions are indeed in differential. Therefore we need to work cardiac getting her to quit altogether. The patient also understands that if her interstitial lung disease worsens she may need to undergo a biopsy to further delineate the etiology. In the meantime the patient will be traveling abroad with family. She will work on her smoking cessation and hoping that she can quit we can repeat her CT scan in October to see if we see any improvement. 07/23/2022 the patient is here for a pulmonary follow-up visit. She continues to have dyspnea on exertion. Mild to moderate severity. Does get better with rest. She still struggling with her smoking. She understands that with her underlying interstitial lung disease it is likely the smoking will continue to make it worse. We did review her CT scan of the chest that she had in October 2021 again demonstrating the reticular changes consistent with pulmonary fibrosis primarily at the bases. This appears to be not UIP pattern. In addition to that though she does have some evidence of ground-glass opacities in the upper lung zones. The patient was supposed to start Wellbutrin but she never got at the pharmacy. However, she is still smoking and likely more. 10/26/2022 the patient is here for a pulmonary follow-up visit. She recently returned from [place]. While she was there she developed significant episode of respiratory distress. she was evaluated and treated. She is feeling better but not at her baseline. She is also complaining of back discomfort. Also is pleuritic in nature. Moderate severity. The patient unfortunately continues to smoke cigarettes. She understands that were pulmonary fibrosis and interstitial lung disease smoking is extremely harmful for her. Therefore, will go ahead and start her on Chantix. We did talk about the risks and benefits of the medication. She knows to monitor for depression. When she completes the starter pack she will call and I will send a regular maintenance dose. In the meantime her last CT scan last year October 2021 demonstrated significant pulmonary fibrosis very suggestive of UIP like pattern. Unfortunately this could be progressive disease. If indeed she does have probable UIP demonstrating any better progressive component of worsening lung capacity will consider antifibrotic agents for her. She will continue with the current respiratory therapy. On examination she also has some wheezing from her recent exacerbation therefore will put on small dose of prednisone to see if this provides her some relief. 12/10/2022 the patient is here for a pulmonary follow-up visit. Overall the patient has been doing better from the asthma standpoint. Denies any significant wheezing. She is working her smoking. She said hard time with. The patient does have dyspnea on exertion. Typically mild severity. We did review her recent CT scan of the chest. Personally by me. It appears that her interstitial lung disease has not significantly changed from October 2021 which is reassuring. No need for antifibrotic agents at this time. Based on the fact that she is feeling better will hold off on the PFTs. Will have her come back in 6 months and at that point to the pulmonary function studies to see if there is any progressive disease. She does have evidence of pulmonary fibrosis and at this point without a clear etiology. If indeed we see any progression we would need to consider the possibility of IPF and would at that point start antifibrotic agents. She will continue with current respiratory therapy at this time. Will follow-up in 6 months after her PFTs. 08/09/2023 the patient is here for a pulmonary follow-up visit. The patient unfortunately continues to smoke cigarettes. She has been struggling. She did not try the Chantix. She has been on the Wellbutrin however. The patient did not have her PFTs done. We again looked at her CT scan demonstrating worsening interstitial lung disease suggesting of a UIP pattern. This could be concerning. Will go ahead and repeat her CT scan sometime in the fall of 2023. Will give her enough time to quit smoking. I did send her the nicotine patch and she can not have the breakthrough nicotine gum. The patient also will continue her respiratory medications. She has responded well to the azithromycin 3 times a week for chronic bronchitis will continue that for now. She did not have her PFTs will have those done closer to her next appointment. If she has any worsening symptoms she will call for an earlier assessment. 12/15/2023 the patient is here for pulmonary sick visit. She started developing worsening respiratory symptoms the last couple days. Chest congestion. Moderate severity. Phlegm is yellow. Also having some chest tightness and some wheezing. She has been using her inhalers. She does have a nebulizer better solution is old. On exam she does have wheezing and rhonchi throughout. The patient is actively coughing. Will go ahead and treat her for bout of bronchitis and an asthma exacerbation. She did have a CT scan of the chest over the summer. Been officially read yet. I did review it. The interstitial changes appear to be stable. Will await the final report. The patient will return in 4 6 months. If she has any worsening symptoms she can call for an earlier assessment. [facility] Medical History (Updated 12/15/23 @ 11:41 by Coleman Freitas MD) COPD (chronic obstructive pulmonary disease) Asthma Pulmonary nodules Tobacco dependence ILD (interstitial lung disease) Social History (Updated 12/15/20 @ 14:44 by ESTEPHANIA Ott) Patient Tobacco Use Status: Current everyday Tobacco user Tobacco use type: Cigarette Years Smoked: Since 14 years old Review of Systems Const Denies night sweats ENT Denies change in voice, Denies lip swelling, Denies mouth pain, Reports nasal congestion, Reports nasal discharge and Denies tongue swelling Card Denies chest pain and Reports dyspnea on exertion Resp Reports chest congestion, Reports cough and Reports dyspnea on exertion GI Reports dyspepsia and Reports heartburn Musc Reports back pain and Reports myalgias Neuro Denies Neuro-related abnormal movements Psych Denies no additional complaints Hilton/Lymph Denies easy bleeding and Denies lymphadenopathy Aller/Immun Denies lip swelling and Denies tongue swelling Physical Exam Vital Signs: Last Vital Signs Pulse 63 12/15/23 10:11 BP 124/68 12/15/23 10:11 Pulse Ox 99 12/15/23 10:11 Oxygen Delivery Method Room Air 12/15/23 10:11 BMI result Body Mass Index 29.8 Quality Reporting (2019) Adult ([facility] 138/04/14/68) Smoking risk assessment performed?: Yes Patient Tobacco Use Status: Current everyday Tobacco user Assessment & Plan Assessment & Plan (1) COPD (chronic obstructive pulmonary disease): Code(s): J44.9 - Chronic obstructive pulmonary disease, unspecified Category: Medical Qualifiers: COPD type: COPD with acute lower respiratory infection Qualified Code(s): J44.0 - Chronic obstructive pulmonary disease with (acute) lower respiratory infection (2) ILD (interstitial lung disease): Code(s): J84.9 - Interstitial pulmonary disease, unspecified Category: Medical (3) Tobacco dependence: Code(s): F17.200 - Nicotine dependence, unspecified, uncomplicated Category: Medical (4) Pulmonary nodules: Code(s): R91.8 - Other nonspecific abnormal finding of lung field Category: Medical Plan start Augmentin start prednisone taper start nebulizer 2 times a day continue Symbicort BRIONNA as needed PFTs in [address] chest in 12 months Tobacco cessation: patch, nicorette gum, wellbutrin Maybe a good candidate for OFEV if there is any evidence of progressive pulmonary fibrotic changes. No changes at this time. Reflux diet F/U 6 months Medications: New amoxicillin-pot clavulanate 875-125 mg 1 tab PO BID 20 tabs 0RF 10 days prednisone PO daily; Take 2 tabs daily x 5 days, then 1 tablet daily x 5 days 15 tabs 0RF 10 days Refilled albuterol sulfate 2.5 mg (3 mL) inhalation Q6H PRN 180 mL 11RF shortness of breath or wheezing 30 days Coding Level of Care Code Est Pt Level 4 (34264) Diagnoses Chronic obstructive pulmonary disease with acute lower respiratory infection J44.0 COPD type: COPD with acute lower respiratory infection ILD (interstitial lung disease) J84.9 Tobacco dependence F17.200 Pulmonary nodules R91.8 Time Spent (min) 16
[2023-12-15 10:11] VITALS: BP 124/68; PULSE 63; O2SAT 99; BMI 29.8
== END 2023-12-15 10:25 | disposition home or self-care (01) ==
PROVIDERS: PCP Physician Assistant; Visit Provider Hospitalist
DX: J44.0 Chronic obstructive pulmonary disease with (acute) lower respiratory infection (principal); J84.9 Interstitial pulmonary disease, unspecified; F17.200 Nicotine dependence, unspecified, uncomplicated; R91.8 Other nonspecific abnormal finding of lung field
CPT/HCPCS: 99214

== ENCOUNTER → 2023-12-15 09:55 | Outpatient (BNVA) | payer MEDICAID, SELFPAY | PROVIDERS: PCP Physician Assistant; Visit Provider Hospitalist | DX: J44.0 Chronic obstructive pulmonary disease with (acute) lower respiratory infection (principal); J84.9 Interstitial pulmonary disease, unspecified; R91.8 Other nonspecific abnormal finding of lung field; F17.210 Nicotine dependence, cigarettes, uncomplicated | CPT/HCPCS: 99212 ==

== ENCOUNTER 2024-03-16 09:29 | Outpatient (AMB) | payer MEDICAID, SELFPAY ==
[2024-03-16 09:34] VITALS: BP 140/82; PULSE 60; O2SAT 98; BMI 30.6
--- NOTE | 2024-03-16 09:34 | MHC.OFFVIS ---
Vital Signs 03/16/24 09:34 Height 5 ft 1 in Weight 162 lb 0.636 oz BMI 30.6 BP 140/82 H Blood Pressure Location Rt brachial Position Sitting Pulse 60 Pulse Source Pulse Oximeter Pulse Oximetry (%) 98 Oxygen Delivery Method Room Air Intake Visit Reasons: Asthma Allergies No Known Allergies [No Known Allergies*] Allergy (Unverified 12/15/23 10:11) HPI Comments Details: The patient is a 64 year-old woman with a long history of tobacco dependency and COPD who apparently has been complaining of worsening dyspnea on exertion and cough. The patient states that recently she did undergo a CT scan of the chest as per the lung cancer screening program because she does have pulmonary nodules. She did follow-up with her primary care doctor who told her that if there were other changes suggesting of interstitial lung disease on the CT scan. Therefore she was referred to Pulmonary. On further questioning the site smoking she denies any other recreational drugs. She denies being exposed to any farm work or birds. The patient denies any mold in the house. She has tried to quit smoking but has been very hard for her. The patient is willing to try the Nicotrol inhaler to see if we can get her away from the smoke That is resulting in moles of the injury to her lungs In airways. I was able to personally review the CAT scans from 2018 and also 2020 with the patient. Back in 2018 she also had interstitial changes primarily in the periphery of her lungs bilaterally with some evidence of honeycombing in the periphery which is concerning. It appears to be also involving the bases but not as predominant. Does have a subtle appearance of usual interstitial pneumonia (UIP) versus a chronic eosinophilic pneumonia. The patient denies any rashes or any joint discomfort to suggest a connective tissue disease. However, this needs to be continued in the differential. I did also review her CT scan from 2020 demonstrating some interval progression of the subpleural process suggesting a progressive type of interstitial lung disease. Smoking can also result in pulmonary fibrosis the patient is aware that and she is motivated to quitting. She has minimal evidence of emphysema also noted. 01/22/2021 the patient is here for a pulmonary follow-up visit. Overall she is doing well from a respiratory status. She denies any worsening shortness of breath or any chest discomfort. She did undergo blood work recently we did reviewed. Her evaluation for interstitial lung disease was negative for any connective tissue conditions to hypersensitivity conditions. The patient also underwent pulmonary function studies demonstrating no obstructive nor restrictive ventilatory defects. Although, her total lung capacity was low normal. She however had a moderate diffusion impairment. Explained to the patient that will be need to continue monitoring closely for any progression. She is to call if any worsening respiratory symptoms arise. She is due for repeat CT scan of the chest based on the lung cancer screening program and July of 2021. as far as other potential triggers we did talk about reflux disease which she has. The patient will work on her reflux diet and will try to sleep elevated. In regards of her asthma the patient did have 1 episode where she woke up short of breath and chest tightness. She did get relief with her rescue inhaler. I do think that based on her symptoms is reasonable to start her on a maintenance inhaler. 08/18/2021 the patient is here for a pulmonary follow-up visit. Overall the patient continues to have shortness of breath and cough. Her symptoms have been getting worse but primarily because she ran out of her medication. Will make sure that she has all her medications available to avoid any rebound symptoms. In the meantime she has not heard from [facility] regarding her lung cancer screening program CT scan. We did review her CT scan that she had back in July 2020 with small pulmonary nodules but more concerning was a degree of interstitial lung disease as she has bilaterally in the periphery more in the mid lung area. Next week consistent with an UIP pattern IPF. But, still concerning. The patient did have a connective tissue disease workup in addition to hypersensitivity pneumonitis panel and workup was completely negative. Explained to the patient that smoking related interstitial lung conditions are indeed in differential. Therefore we need to work cardiac getting her to quit altogether. The patient also understands that if her interstitial lung disease worsens she may need to undergo a biopsy to further delineate the etiology. In the meantime the patient will be traveling abroad with family. She will work on her smoking cessation and hoping that she can quit we can repeat her CT scan in October to see if we see any improvement. 07/23/2022 the patient is here for a pulmonary follow-up visit. She continues to have dyspnea on exertion. Mild to moderate severity. Does get better with rest. She still struggling with her smoking. She understands that with her underlying interstitial lung disease it is likely the smoking will continue to make it worse. We did review her CT scan of the chest that she had in October 2021 again demonstrating the reticular changes consistent with pulmonary fibrosis primarily at the bases. This appears to be not UIP pattern. In addition to that though she does have some evidence of ground-glass opacities in the upper lung zones. The patient was supposed to start Wellbutrin but she never got at the pharmacy. However, she is still smoking and likely more. 10/26/2022 the patient is here for a pulmonary follow-up visit. She recently returned from [place]. While she was there she developed significant episode of respiratory distress. she was evaluated and treated. She is feeling better but not at her baseline. She is also complaining of back discomfort. Also is pleuritic in nature. Moderate severity. The patient unfortunately continues to smoke cigarettes. She understands that were pulmonary fibrosis and interstitial lung disease smoking is extremely harmful for her. Therefore, will go ahead and start her on Chantix. We did talk about the risks and benefits of the medication. She knows to monitor for depression. When she completes the starter pack she will call and I will send a regular maintenance dose. In the meantime her last CT scan last year October 2021 demonstrated significant pulmonary fibrosis very suggestive of UIP like pattern. Unfortunately this could be progressive disease. If indeed she does have probable UIP demonstrating any better progressive component of worsening lung capacity will consider antifibrotic agents for her. She will continue with the current respiratory therapy. On examination she also has some wheezing from her recent exacerbation therefore will put on small dose of prednisone to see if this provides her some relief. 12/10/2022 the patient is here for a pulmonary follow-up visit. Overall the patient has been doing better from the asthma standpoint. Denies any significant wheezing. She is working her smoking. She said hard time with. The patient does have dyspnea on exertion. Typically mild severity. We did review her recent CT scan of the chest. Personally by me. It appears that her interstitial lung disease has not significantly changed from October 2021 which is reassuring. No need for antifibrotic agents at this time. Based on the fact that she is feeling better will hold off on the PFTs. Will have her come back in 6 months and at that point to the pulmonary function studies to see if there is any progressive disease. She does have evidence of pulmonary fibrosis and at this point without a clear etiology. If indeed we see any progression we would need to consider the possibility of IPF and would at that point start antifibrotic agents. She will continue with current respiratory therapy at this time. Will follow-up in 6 months after her PFTs. 08/09/2023 the patient is here for a pulmonary follow-up visit. The patient unfortunately continues to smoke cigarettes. She has been struggling. She did not try the Chantix. She has been on the Wellbutrin however. The patient did not have her PFTs done. We again looked at her CT scan demonstrating worsening interstitial lung disease suggesting of a UIP pattern. This could be concerning. Will go ahead and repeat her CT scan sometime in the fall of 2023. Will give her enough time to quit smoking. I did send her the nicotine patch and she can not have the breakthrough nicotine gum. The patient also will continue her respiratory medications. She has responded well to the azithromycin 3 times a week for chronic bronchitis will continue that for now. She did not have her PFTs will have those done closer to her next appointment. If she has any worsening symptoms she will call for an earlier assessment. 12/15/2023 the patient is here for pulmonary sick visit. She started developing worsening respiratory symptoms the last couple days. Chest congestion. Moderate severity. Phlegm is yellow. Also having some chest tightness and some wheezing. She has been using her inhalers. She does have a nebulizer better solution is old. On exam she does have wheezing and rhonchi throughout. The patient is actively coughing. Will go ahead and treat her for bout of bronchitis and an asthma exacerbation. She did have a CT scan of the chest over the summer. Been officially read yet. I did review it. The interstitial changes appear to be stable. Will await the final report. The patient will return in 4 6 months. If she has any worsening symptoms she can call for an earlier assessment. 03/16/2024 the patient is here for a pulmonary follow-up visit. The patient is complaining of some difficulty breathing and also pleuritic chest pain primarily the left side. She did go to [place] in her symptoms started getting worse there. Denies any wheezing denies any congested cough. We did again review her CT scan that she had back in over the summer demonstrating the interstitial lung disease primarily in the periphery. Likely that she is developing some degree of pleuritis. Her blood work was all negative but that was back in 2020. Will go ahead and repeat blood work specially with her arthralgias and myalgias. I wonder if she has a connective tissue disease related interstitial lung disease. For now will go ahead and started him small dose of prednisone to see if we can get some relief and also repeat the CT scan. Will go ahead and repeat all the blood work and just see if we can find a secondary cause. She may be a good candidate for often see worsening disease. We did talk about potential biopsy. Will discuss that further after her blood work and her repeat CT scan is available to review and after we see her response to low-dose prednisone. [facility] Medical History (Updated 03/16/24 @ 22:21 by Coleman Freitas MD) Pleuritic chest pain COPD (chronic obstructive pulmonary disease) Asthma Pulmonary nodules Tobacco dependence ILD (interstitial lung disease) Social History (Updated 12/15/20 @ 14:44 by ESTEPHANIA Ott) Patient Tobacco Use Status: Current everyday Tobacco user Tobacco use type: Cigarette Years Smoked: Since 14 years old Review of Systems Const Denies night sweats ENT Denies change in voice, Denies lip swelling, Denies mouth pain, Reports nasal congestion, Reports nasal discharge and Denies tongue swelling Card Reports chest pain and Reports dyspnea on exertion Resp Reports chest congestion, Reports cough, Reports pain on inspiration, Reports pain with cough and Reports dyspnea on exertion GI Reports dyspepsia and Reports heartburn Musc Reports back pain and Reports myalgias Neuro Denies Neuro-related abnormal movements Psych Denies no additional complaints Hilton/Lymph Denies easy bleeding and Denies lymphadenopathy Aller/Immun Denies lip swelling and Denies tongue swelling Physical Exam Vital Signs: Last Vital Signs Pulse 60 03/16/24 09:34 BP 140/82 H 03/16/24 09:34 Pulse Ox 98 03/16/24 09:34 Oxygen Delivery Method Room Air 03/16/24 09:34 BMI result Body Mass Index 30.6 Const General: alert HEENT General nose exam: Abnormal external nose present and Nasal discharge present Eyes Pupils: Equal, round and reactive pupils present Neck Neck: Yes normal visual inspection, Yes full ROM and Yes no lymphadenopathy Chest Chest palpation & inspection: normal inspection of the chest Resp Auscultation: rales, no wheezes and diminished lung sounds Cardio Rate: regular rate Rhythm: regular rhythm Heart sounds: S1 normal heart sound present and S2 normal heart sound present GI Palpation (GI): Soft to palpation and nontender Auscultation: normal bowel sounds General: Yes no CVA tenderness Back/Spine/Pelvis Back: no CVA tenderness Skin General skin exam: rashes and/or lesions noted Neuro Cranial nerves: Yes Equal, round and reactive pupils present Quality Reporting (2019) Adult ([facility] 138/04/14/68) Smoking risk assessment performed?: Yes Patient Tobacco Use Status: Current everyday Tobacco user Results Reviewed Results Reviewed: personally reviewed CT chest 2023 +ILD Assessment & Plan Assessment & Plan (1) COPD (chronic obstructive pulmonary disease): Code(s): J44.9 - Chronic obstructive pulmonary disease, unspecified Category: Medical Qualifiers: COPD type: COPD with acute lower respiratory infection Qualified Code(s): J44.0 - Chronic obstructive pulmonary disease with (acute) lower respiratory infection (2) ILD (interstitial lung disease): Code(s): J84.9 - Interstitial pulmonary disease, unspecified Category: Medical (3) Tobacco dependence: Code(s): F17.200 - Nicotine dependence, unspecified, uncomplicated Category: Medical (4) Pulmonary nodules: Code(s): R91.8 - Other nonspecific abnormal finding of lung field Category: Medical (5) Pleuritic chest pain: Code(s): R07.81 - Pleurodynia Category: Medical Plan start prednisone taper nebulizer 2 times a day continue Symbicort BRIONNA as needed repeat CT chest bloodwork Tobacco cessation: patch, nicorette gum, wellbutrin Maybe a good candidate for OFEV if there is any evidence of progressive pulmonary fibrotic changes. No changes at this time. Reflux diet F/U 6 weeks Orders: Orders D Dimer High Sensitivity Today J84.9 - Interstitial pulmonary disease, unspecified, R91.8 - Other nonspecific abnormal finding of lung field Cyclic Citrullinated Peptide Today J84.9 - Interstitial pulmonary disease, unspecified, R91.8 - Other nonspecific abnormal finding of lung field Hypersensitive Pneumonitis Prf Today J84.9 - Interstitial pulmonary disease, unspecified, R91.8 - Other nonspecific abnormal finding of lung field Scleroderma 70 Antibody Today J84.9 - Interstitial pulmonary disease, unspecified, R91.8 - Other nonspecific abnormal finding of lung field Sjogren's Antibodies Today J84.9 - Interstitial pulmonary disease, unspecified, R91.8 - Other nonspecific abnormal finding of lung field Complete Blood Count Auto Diff Today J84.9 - Interstitial pulmonary disease, unspecified, R91.8 - Other nonspecific abnormal finding of lung field Anti DNA DS Antibody Today J84.9 - Interstitial pulmonary disease, unspecified, R91.8 - Other nonspecific abnormal finding of lung field Angiotensin Converting Enzyme Today J84.9 - Interstitial pulmonary disease, unspecified, R91.8 - Other nonspecific abnormal finding of lung field ANCA Vasculitides Today J84.9 - Interstitial pulmonary disease, unspecified, R91.8 - Other nonspecific abnormal finding of lung field YOANA Reflex Titer and Pattern Today J84.9 - Interstitial pulmonary disease, unspecified, R91.8 - Other nonspecific abnormal finding of lung field Immunoglobulin E Today J84.9 - Interstitial pulmonary disease, unspecified, R91.8 - Other nonspecific abnormal finding of lung field CT chest wo IV con Today J84.9 - Interstitial pulmonary disease, unspecified, R91.8 - Other nonspecific abnormal finding of lung field Medications: New prednisone PO daily; Take 2 tabs daily x 15 days, then 1 tab daily x 15 45 tabs 0RF 30 days Coding Level of Care Code Est Pt Level 5 (22253) Diagnoses Chronic obstructive pulmonary disease with acute lower respiratory infection J44.0 COPD type: COPD with acute lower respiratory infection ILD (interstitial lung disease) J84.9 Tobacco dependence F17.200 Pulmonary nodules R91.8 Pleuritic chest pain R07.81 Time Spent (min) 45
== END 2024-03-16 09:52 | disposition home or self-care (01) ==
PROVIDERS: PCP Physician Assistant; Visit Provider Hospitalist
DX: J44.0 Chronic obstructive pulmonary disease with (acute) lower respiratory infection (principal); J84.9 Interstitial pulmonary disease, unspecified; F17.210 Nicotine dependence, cigarettes, uncomplicated; R91.8 Other nonspecific abnormal finding of lung field; R07.81 Pleurodynia
CPT/HCPCS: 99215

== ENCOUNTER → 2024-03-16 09:29 | Outpatient (BNVA) | payer MEDICAID, SELFPAY | PROVIDERS: PCP Physician Assistant; Visit Provider Hospitalist | DX: J44.0 Chronic obstructive pulmonary disease with (acute) lower respiratory infection (principal); J84.9 Interstitial pulmonary disease, unspecified; R91.8 Other nonspecific abnormal finding of lung field; R07.81 Pleurodynia; F17.210 Nicotine dependence, cigarettes, uncomplicated | CPT/HCPCS: 99212 ==

== ENCOUNTER 2024-04-25 14:38 | Outpatient (REF) | payer MEDICAID, SELFPAY ==
--- NOTE | ~2024-04-25 | CT_ITS ---
CLINICAL HISTORY: J84.9 - Interstitial pulmonary disease, unspecified CT chest without contrast Comparison: CT/KS/SR - CT CHEST WO IV CON - 10/14/23 16:42 EDT Findings: Stable and normal heart size. Moderate to heavy coronary calcium without pericardial effusion. No pathologically enlarged hilar or mediastinal lymph nodes. Decompressed esophagus. Unremarkable thyroid. No chest wall lesions or axillary adenopathy. Subpleural septal thickening. Areas of honeycombing greatest within the left upper lobe anteriorly and within the left lung base. No dense consolidation or effusion. No pneumothorax. Calcified granuloma in the left lower lobe. Otherwise no suspicious pulmonary nodules or masses. No significant change since the prior CT. The visualized upper abdomen is unremarkable. No acute osseous findings. IMPRESSION: 1. Stable interstitial lung disease. This document has been electronically signed by: Joann Rhoades MD on 04/26/2024 09:03:07
--- OUTSIDE RECORDS SUMMARY | 2024-04-25 17:38 | XMS_ITS | Encounter Summary ---
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 Name Role Phone Thu Clark PA-C Primary Care Provider [phone] Encounter Details Date Type Department Care Team (Late st Contact Info) Description 11/20/2014 Scan Pathology [facility] Primary Care [address] [place] [phone] Thu Clark PA-C [address] [place] [phone] Social History Tobacco Use Types Packs/Day Years Used Date Smoking Tobacco: Every Day Cigarettes Smokeless Tobacco: Current Alcohol Use Standard Drinks/Week Comments Yes 0 (1 standard drink = 0.6 oz pur e alcohol) Comments No Sex and Gender Information Value Date Recorded Sex Assigned at Female 02/01/2017 5:23 PM PST Legal Sex Female 11:36 AM PDT Gender Identity Female 02/01/2017 5:23 PM PST Sexual Orientation Straight 02/01/2017 5: 23 PM PST documented as of this encounter Plan of Treatment Not on file documented as of this encounter Procedures Procedure Name Priority Date/Time Associated Diagnosis Comments PATHOLOGY SCANNED DOCUMENT 11/20/2014 3:00 AM EDT documented in this encounter Results * PATHOLOGY SCANNED DOCUMENT (11/20/2014 3:00 AM EDT) 11/20/2014 3:00 AM EDT Thu Clark PA-C SCAN LAB Final Result documented in this encounter Visit Diagnoses Not on filedocumented in this encounter Additional Health Concerns Infection Onset Date Last Indicated Resolved Time COVID-19 (rule-out) Comment:Added automatically based on ordered lab. 09/14/2019 09/14/2019 09/15/2019 9:54 AM P DT COVID-19 (rule-out) Comment:Added automatically based on ordered lab. 12/05/2019 12/05/2019 12/06/2019 8:23 PM P DT COVID-19 (rule-out) Comment:Added automatically based on ordered lab. 02/25/2020 02/25/2020 02/26/2020 8:[address] COVID-19 (rule-out) Comment:Added automatically based on ordered lab. 05/02/2020 05/02/2020 05/06/2020 7:14 AM P DT COVID-19 (rule-out) Comment:Added automatically based on ordered lab. 09/15/2020 09/15/2020 09/15/2020 7:28 AM P DT documented as of this encounter Care Teams Upholstery Parts Sorter Relationship Specialty Start Date End Date Thu Clark PA-C [address] [place] [phone] PCP - General Internal Medicine 04/30/20 documented as of this encounter
--- OUTSIDE RECORDS SUMMARY | 2024-04-25 17:38 | XMS_ITS | Patient Health Record ---
Author Organization [facility] Address [address], [place] [id number] Care Team Providers Care Color Making Supervisor Name Role Phone Primary Care Provi isaias Unavailable Jose C Acosta Unavailable [phone] Reason For Referral No Information Plan Of Treatment No Information Insurance Providers Payer Name Payer Address Payer Phone Subscriber Number Group Number Insured Name Patient Relationship to Insured Coverage Start Date Coverage End Date [place] Medicare Part A [employer] [address] [place] [address] [id number] Carol Alcaraz Self - patient is the insured
--- OUTSIDE RECORDS SUMMARY | 2024-04-25 17:38 | XMS_ITS | Encounter Summary ---
Author Organization [employer] Address [address] [place] [address] Care Team Providers Care Crew Car Driver Name Role Phone Thu Clark Primary Care Provider [phone] Reason for Visit * Reason Comments Abdominal Pain Reports abdominal pa in since last night Encounter Details Date Type Department Care Team (Late st Contact Info) Description 04/07/2024 12:23 PM EST - 04/07/2024 5:14 PM EST Emergency [facility] Emergency [address] [place] [address] Luis Eduardo Khoury MD [address] [facility] [address] [place] [address] Other acute gastritis without hemorrhage (Primary Dx) Discharge Disposition: Home or Self Care Social History Tobacco Use Types Packs/Day Years Used Date Smoking Tobacco: Every Day Cigarettes Smokeless Tobacco: Never Alcohol Use Standard Drinks/Week Comments Never 0 (1 standard drink = 0.6 oz pur e alcohol) Comments Unknown Sex and Gender Information Value Date Recorded Sex Assigned at Female 03/18/2024 6:05 PM EST Legal Sex Female 5:37 AM EST Gender Identity Female 03/18/2024 6:05 PM EST Sexual Orientation Choose not to disclose 2024 6:05 PM EST documented as of this encounter Last Filed Vital Signs Vital Sign Reading Time Taken Comments Blood Pressure 152/79 04/07/2024 12:46 PM EST Pulse 52 04/07/2024 12:46 PM EST Temperature 36.5 ??C (97.7 ??F) 04/07/2024 12:[address] Respiratory Rate 20 04/07/2024 12:46 PM EST Oxygen Saturation 97% 04/07/2024 12:46 PM EST Inhaled Oxygen Concentration - - Weight 73.5 kg (162 lb) 04/07/2024 10:32 AM EST Height 157.5 cm (5' 2 ) 04/07/2024 10:32 AM EST Body Mass Index 29.63 04/07/2024 10:32 AM EST documented in this encounter Discharge Instructions * Discharge Instructions* ERICKA Cobos - 04/07/2024 4:57 PM EST The ultrasound of the gallbladder shows no evidence of gallstones or gallbladder infection. Continue your Prilosec and other medications as previously prescribed. Clear liquid diet and advance diet as tolerated. Take Zofran as needed for nausea/vomiting. Follow-up with your primary care doctor. * Attachments The following attachments cannot be sent through Care Everywhere. * Gastritis ([place]) documented in this encounter Medications at Time of Discharge ondansetron ODT (ZOFRAN-ODT) 4 mg disintegrating tablet Let 1 tablet dissolve under the tongue three times daily as needed for nausea or vomiting. 10 tablet 04/07/2024 5 documented as of this encounter Ordered Prescriptions Prescription Sig Dispense Quantity Refills Last Filled Start Date End Date ondansetron ODT (ZOFRAN-ODT) 4 mg disintegrating tablet Let 1 tablet dissolve under the tongue three times daily as needed for nausea or vomiting. 10 tablet 04/07/2024 5 documented in this encounter Discharge Disposition Disposition Code Departure Means Destination Comment s Home or Self Care documented in this encounter Progress Notes * Kaur Cain RN - 04/07/2024 10:28 AM EST She states that she had a rash on her right buttock and it's not going away. She is also having diffuse abdominal pain since last night. She denies N/V/D * ERICKA Cobos - 04/07/2024 10:12 AM EST Emergency Medicine Note Patient Name: Carol Alcaraz Initial Evaluation: 04/07/2024 : 1960 Patient's PCP: ERICKA Angel Emergency Physician: ERICKA Cobos History of Present Illness Chief Complaint: Chief Complaint Patient presents with ??? Abdominal Pain Reports abdominal pain since last night HPI: 64-year-old female with a history of gastritis on Prilosec complaining of upper abdominal pain. Patient states that she woke from sleep with this pain at approximately 2:00 this morning. She hashad nausea but no vomiting. She has had decreased appetite. Patient states that she takes Prilosec but it does not seem to help. She states that for a long time she has been experiencing similar pain that often gets worse if she eats certain foods. She has not had abdominal surgery. ROS: I have performed a ROS with the pertinent positives and negatives documented in the history ofpresent illness. Previous History Past Medical History: Diagnosis Date ??? Arthritis ??? Asthma ??? Gastritis Past Surgical History: Procedure Laterality Date ??? BACK SURGERY Social History Tobacco Use ??? Smoking status: Every Day Types: Cigarettes ??? Smokeless tobacco: Never Substance Use Topics ??? Alcohol use: Never ??? Drug use: Never No family history on file. has No Known Allergies. No current facility-administered medications on file prior to encounter. No current outpatient medications on file prior to encounter. Physical Exam ED Triage Vitals [04/07/24 1032] Temp Heart Rate Resp BP 36.6 ??C (97.9 ??F) 74 20 (!) 141/79 SpO2 Temp Source Heart Rate Source Patient Position 98 % Oral -- -- BP Location FiO2 (%) -- -- General: Well-appearing, well nourished, in no acute distress HEENT: PERRL, EOMI, external ears and nose appear unremarkable, airway is patent Neck: Supple, full range of motion Chest: Clear to auscultation; no evidence of respiratory distress Circulatory: RRR, extremities well perfused Abdomen: Non-distended, epigastric and right upper quadrant tenderness Extremities: Normal ROM, No edema Skin: Warm and dry Neuro: Alert and oriented, no focal deficits Results Labs Reviewed COMPREHENSIVE METABOLIC PANEL - Abnormal Result Value Sodium 138 Potassium 4.6 Chloride 106 CO2 30 Anion Gap 2 (*) Glucose 97 BUN 9 Creatinine 0.66 eGFR 98 BUN/Creatinine Ratio 13.6 Calcium 9.2 AST (SGOT) 14 ALT (SGPT) 22 Alkaline Phosphatase 124 (*) Total Protein 7.2 Albumin 3.4 Total Bilirubin 0.3 CBC WITH AUTO DIFFERENTIAL - Abnormal WBC 8.3 RBC 3.90 Hemoglobin 11.9 Hematocrit 37.4 MCV 96.4 MCH 30.7 MCHC 31.8 (*) RDW 15.0 Platelets 193 MPV 11.1 (*) NRBC 0.0 NRBC Absolute 0.00 Neutrophils Relative 47.9 Lymphocytes Relative 42.6 Monocytes Relative 5.5 Eosinophils Relative 3.3 Basophils Relative 0.6 Immature Granulocytes Relative 0.1 Neutrophils Absolute 3.97 Lymphocytes Absolute 3.53 Monocytes Absolute 0.46 Eosinophils Absolute 0.27 Basophils Absolute 0.05 Immature Granulocytes Absolute 0.01 LIPASE - Normal Lipase 39 CBC AND DIFFERENTIAL Narrative: The following orders were created for panel order CBC and differential. Procedure Abnormality Status --------- ------ CBC auto differential[[id number]] Abnormal Final result Please view results for these tests on the individual orders. Abnormal Labs Reviewed COMPREHENSIVE METABOLIC PANEL - Abnormal; Notable for the following components: Result Value Anion Gap 2 (*) Alkaline Phosphatase 124 (*) All other components within normal limits CBC WITH AUTO DIFFERENTIAL - Abnormal; Notable for the following components: MCHC 31.8 (*) MPV 11.1 (*) All other components within normal limits No orders to display I have discussed the incidental/abnormal imaging and/or lab abnormalities with the patient and haveinstructed them the need for further evaluation and workup with their primary care doctor. I have provided the patient with a paper copy of the abnormality. The laboratory results, imaging results and other diagnostic exam results were reviewed in the EMR. EKG Interpretation Critical Care Time None Medical Decision Making Medications - No data to display Clinical Impressions as of 04/07/24 1657 Other acute gastritis without hemorrhage Patient was evaluated. CBC Chem-7 LFTs lipase show no worrisome abnormality. UA was added on. IV normal saline 1 L bolus morphine Zofran IV Pepcid IV and gallbladder ultrasound. Gallbladder ultrasound is negative. Procedures Procedures Diagnosis No diagnosis found. gastritis Disposition Data Unavailable Discharge ED Prescriptions None Physician Attestation ERICKA Cobos 04/07/24 1330 ERICKA Cobos 04/07/24 1351 This is a split/shared visit with ERICKA Cobos. I personally performed the medical decision making (MDM) for the care of this patient on 04/07/24 as documented below Agree with assessment and plan I saw the patient and examined the patient. Luis Eduardo Khoury MD 04/07/24 2:56 PM EST MD Luis Eduardo Cazares MD 04/07/24 1456 ERICKA Cobos 04/07/24 1656 Cosigned by Luis Eduardo Khoury MD at 04/08/2024 11:05 AM EST documented in this encounter Plan of Treatment Not on file documented as of this encounter Procedures Procedure Name Priority Date/Time Associated Diagnosis Comments US ABDOMEN LIMITED STAT 04/07/2024 3: 36 PM EST CBC WITH AUTO DIFFERENTIAL STAT 04/07/2024 11:40 AM EST CBC AND DIFFERENTIAL STAT 04/07/2024 11:40 AM EST LIPASE STAT 04/07/2024 11:40 AM EST COMPREHENSIVE METABOLIC PANEL STAT 04/07/2024 11:40 AM EST documented in this encounter Results * US Abdomen Limited (04/07/2024 3:36 PM EST) Anatomical Region Laterality Modality Body Ultrasound 04/07/2024 3:59 PM EST Impressions 04/07/2024 4:01 PM EST NORMAL SONOGRAPHIC APPEARANCE OF THE GALLBLADDER. -------- FINAL REPORT -------- Dictated By: Derek Albert Dictated Date: 04/07/2024 15:59 ET Assigned Physician: Derek Albert Reviewed and Electronically Signed By: Derek Albert Signed Date: 04/07/2024 16:01 ET Workstation ID: [id number] Transcribed By: Self Edit Transcribed Date: 04/07/2024 15:59 ET Narrative 04/07/2024 4:01 PM EST Exam: US ABDOMEN LIMITED Date of Study: 04/07/2024 3:35 PM CLINICAL INFORMATION: Eval for gallbladder disease TECHNIQUE: Real-time ultrasound scanning of the region of interest performed by the research librarian. Studio Director static images and video clips are submitted for review. FINDINGS: The liver measures 5.6 cm without focal lesion evident. ??Visualized pancreas is unremarkable. ??Visualized IVC is unremarkable. ??The gallbladder is within normal limits without evidence for gallstones or gallbladder wall thickening. ??The wall measures approximately 2 mm. ??Common bile duct measures approximately 6 mm. ??Absent sonographic Rainey's sign. ??The right kidney measures 9.3 cm without evidence for hydronephrosis. ??There is no ascites evident. Procedure Note Derek Albert MD - 04/07/2024 Exam: US ABDOMEN LIMITED Date of Study: 04/07/2024 3:35 PM CLINICAL INFORMATION: Eval for gallbladder disease TECHNIQUE: Real-time ultrasound scanning of the region of interestperformed by the research librarian. Studio Director static images and video clipsare submitted for review. FINDINGS: The liver measures 5.6 cm without focal lesion evident. Visualizedpancreas is unremarkable. Visualized IVC is unremarkable. Thegallbladder is within normal limits without evidence for gallstones orgallbladder wall thickening. The wall measures approximately 2 mm.Common bile duct measures approximately 6 mm. Absent sonographic Rainey'ssign. The right kidney measures 9.3 cm without evidence forhydronephrosis. There is no ascites evident. IMPRESSION: NORMAL SONOGRAPHIC APPEARANCE OF THE GALLBLADDER. -------- FINAL REPORT -------- Dictated By: Derek Albert Dictated Date: 04/07/2024 15:59 ET Assigned Physician: Derek Albert Reviewed and Electronically Signed By: Derek Albert Signed Date: 04/07/2024 16:01 ET Workstation ID: [id number] Transcribed By: Self Edit Transcribed Date: 04/07/2024 15:59 ET us [facility]NETT IMG US PROCEDURES Final Resu lt * (ABNORMAL) CBC auto differential (04/07/2024 11:40 AM EST) [facility] WBC 8.3 4.8 - 10.8 K/mcL LAB HEMETOLOGY METHOD 04/07/2024 12:01 PM [facility] RBC 3.90 3.80 - 4.80 M/mcL LAB HEMETOLOGY METHOD 04/07/2024 12:01 PM [facility] Hemoglobin 11.9 11.5 - 16.0 g/dL LAB HEMETOLOGY METHOD 04/07/2024 12:01 PM [facility] Hematocrit 37.4 35.0 - 47.0 % LAB HEMETOLOGY METHOD 04/07/2024 12:01 PM [facility] MCV 96.4 79.0 - 98.0 FL LAB HEMETOLOGY METHOD 04/07/2024 12:01 PM [facility] MCH 30.7 27.0 - 32.0 pcg LAB HEMETOLOGY METHOD 04/07/2024 12:01 PM [facility] MCHC 31.8(L) 32.0 - 37.0 g/dL LAB HEMETOLOGY METHOD 04/07/2024 12:01 PM [facility] RDW 15.0 11.0 - 15.0 % LAB HEMETOLOGY METHOD 04/07/2024 12:01 PM [facility] Platelets 193 130 - 400 K/mcL LAB HEMETOLOGY METHOD 04/07/2024 12:01 PM [facility] MPV 11.1(H) 7.0 - 11.0 FL LAB HEMETOLOGY METHOD 04/07/2024 12:01 PM [facility] NRBC 0.0 <1.0 % LAB HEMETOLOGY METHOD 04/07/2024 12:01 PM [facility] NRBC Absolute 0.00 <0.10 K/mcL LAB HEMETOLOGY METHOD 04/07/2024 12:01 PM [facility] Neutrophils Relative 47.9 % LAB HEMETOLOGY METHOD 04/07/2024 12:01 PM [facility] Lymphocytes Relative 42.6 % LAB HEMETOLOGY METHOD 04/07/2024 12:01 PM [facility] Monocytes Relative 5.5 % LAB HEMETOLOGY METHOD 04/07/2024 12:01 PM [facility] Eosinophils Relative 3.3 % LAB HEMETOLOGY METHOD 04/07/2024 12:01 PM [facility] Basophils Relative 0.6 % LAB HEMETOLOGY METHOD 04/07/2024 12:01 PM [facility] Immature Granulocytes Relative 0.1 % LAB HEMETOLOGY METHOD 04/07/2024 12:01 PM [facility] Neutrophils Absolute 3.97 1.50 - 7.00 K/mcL LAB HEMETOLOGY METHOD 04/07/2024 12:01 PM [facility] Lymphocytes Absolute 3.53 1.00 - 5.00 K/mcL LAB HEMETOLOGY METHOD 04/07/2024 12:01 PM [facility] Monocytes Absolute 0.46 0.20 - 1.00 K/mcL LAB HEMETOLOGY METHOD 04/07/2024 12:01 PM [facility] Eosinophils Absolute 0.27 0.00 - 0.50 K/mcL LAB HEMETOLOGY METHOD 04/07/2024 12:01 PM [facility] Basophils Absolute 0.05 0.00 - 0.20 K/mcL LAB HEMETOLOGY METHOD 04/07/2024 12:01 PM [facility] Immature Granulocytes Absolute 0.01 0.00 - 0.03 K/mcL LAB HEMETOLOGY METHOD 04/07/2024 12:01 PM EST [facility] Blood Venous blood specimen / Unknown Venipuncture / Unknown 04/07/2024 11:40 AM EST 04/07/2024 11:53 AM EST Luis Eduardo Khoury MD LAB BLOOD ORDERABLES Final Result Performing Organization Address City/[facility]/ZIP Co de Phone Number [facility] [address] [place] [address], [place] [phone] * Lipase (04/07/2024 11:40 AM EST) Lipase 39 13 - 75 unit/L LAB CHEMISTRY METHOD 04/07/2024 12:23 PM [facility] Blood Venous blood specimen / Unknown Venipuncture / Unknown 04/07/2024 11:40 AM EST 04/07/2024 11:53 AM EST Luis Eduardo Khoury MD LAB BLOOD ORDERABLES Final Result Performing Organization Address City/[facility]/ZIP Co de Phone Number [facility] [address] [place] [address], [place] [phone] * (ABNORMAL) Comprehensive metabolic panel (04/07/2024 11:40 AM EST) Sodium 138 133 - 145 mmol/L LAB CHEMISTRY METHOD 04/07/2024 12:25 PM [facility] Potassium 4.6 3.5 - 5.5 mmol/L LAB CHEMISTRY METHOD 04/07/2024 12:25 PM [facility] Chloride 106 96 - 110 mmol/L LAB CHEMISTRY METHOD 04/07/2024 12:25 PM [facility] CO2 30 21 - 32 mmol/L LAB CHEMISTRY METHOD 04/07/2024 12:25 PM [facility] Anion Gap 2(L) 3 - 11 LAB CHEMISTRY METHOD 04/07/2024 12:25 PM [facility] Glucose 97 70 - 100 mg/dL LAB CHEMISTRY METHOD 04/07/2024 12:25 PM [facility] BUN 9 5 - 25 mg/dL LAB CHEMISTRY METHOD 04/07/2024 12:25 PM [facility] Creatinine 0.66 0.50 - 1.10 mg/dL LAB CHEMISTRY METHOD 04/07/2024 12:25 PM [facility] eGFR 98 >=60 mL/min/1. 73m2 LAB CHEMISTRY METHOD 04/07/2024 12:25 PM [facility] Comment:Calculation based on the??Chronic Kidney Disease Epidemiology Collaboration (CKD-EPI) equation refit??without adjustment for race. BUN/Creatinine Ratio 13.6 LAB CHEMISTRY METHOD 04/07/2024 12:25 PM [facility] Calcium 9.2 8.5 - 10.5 mg/dL LAB CHEMISTRY METHOD 04/07/2024 12:25 PM [facility] AST (SGOT) 14 10 - 42 unit/L LAB CHEMISTRY METHOD 04/07/2024 12:25 PM [facility] ALT (SGPT) 22 10 - 60 unit/L LAB CHEMISTRY METHOD 04/07/2024 12:25 PM [facility] Alkaline Phosphatase 124(H) 42 - 121 unit/L LAB CHEMISTRY METHOD 04/07/2024 12:25 PM [facility] Total Protein 7.2 6.0 - 8.0 g/dL LAB CHEMISTRY METHOD 04/07/2024 12:25 PM [facility] Albumin 3.4 3.2 - 5.0 g/dL LAB CHEMISTRY METHOD 04/07/2024 12:25 PM [facility] Total Bilirubin 0.3 0.0 - 1.4 mg/dL LAB CHEMISTRY METHOD 04/07/2024 12:25 PM [facility] Blood Venous blood specimen / Unknown Venipuncture / Unknown 04/07/2024 11:40 AM EST 04/07/2024 11:53 AM EST us Luis Eduardo Khoury MD LAB BLOOD ORDERABLES Final Result [facility] [address] [place] [address], [place] [phone] documented in this encounter Visit Diagnoses Diagnosis Other acute gastritis without hemorrhage- Primary documented in this encounter Administered Medications Inactive Administered Medications - up to 3 most recent administrations Medication Order MAR Action Action Date Dose Rate Site famotidine (PF) (PEPCID) injection 20 mg 20 mg, intravenous, Administer over 2 Minutes, Once, On 04/07/24 at 1350, For 1 dose Given 04/07/2024 2:52 PM EST 20 mg morphine injection 4 mg 4 mg, intravenous, Once, On 04/07/24 at 1350, For 1 dose Given 04/07/2024 2:53 PM EST 4 mg ondansetron (PF) (ZOFRAN) injection 4 mg 4 mg, intravenous, Once, On 04/07/24 at 1350, For 1 dose Given 04/07/2024 2:52 PM EST 4 mg sodium chloride 0.9 % bolus 1,000 mL 1,000 mL, intravenous, at 1,000 mL/hr, Administer over 1 Hours, Once, On 04/07/24 at 1350, For 1 dose New Bag 04/07/2024 2:52 PM EST 1,000 mL 100 0 mL/hr documented in this encounter Active and Recently Administered Medications Times are shown in EST. Scheduled Medication Order 04/05/2024 04/06/2024 04/07/2024 famotidine (PF) (PEPCID) injection 20 mg (COMPLETED) 20 mg, intravenous, Administer over 2 Minutes, Once, On 04/07/24 at 1350, For 1 dose 1452 (Given - Provid er: Sheri Pradhan RN) morphine injection 4 mg (COMPLETED) 4 mg, intravenous, Once, On 04/07/24 at 1350, For 1 dose 1453 (Given - Provid er: Sheri Pradhan RN) ondansetron (PF) (ZOFRAN) injection 4 mg (COMPLETED) 4 mg, intravenous, Once, On 04/07/24 at 1350, For 1 dose 1452 (Given - Provid er: Sheri Pradhan RN) sodium chloride 0.9 % bolus 1,000 mL (COMPLETED) 1,000 mL, intravenous, at 1,000 mL/hr, Administer over 1 Hours, Once, On 04/07/24 at 1350, For 1 dose 1452 (New Bag - Prov ider: Sheri Pradhan RN)[id number] (Stopped - Provider: Katy Villegas RN) documented in this encounter Care Teams Crew Car Driver Relationship Specialty Start Date End Date Thu Clark PA [facility] [place] [address] PCP - General Physician Pourer Crane Ladle 03/18/24 documented as of this encounter
--- OUTSIDE RECORDS SUMMARY | 2024-04-25 17:38 | XMS_ITS | Clinical Summary ---
Author Organization [facility] Address [address] [place] [address] Phone Care Team Providers Care Data Warehousing Specialist Name Role Phone Thu Clark Primary Care Provider [phone] Allergies No known active allergies Medications ondansetron ODT (ZOFRAN-ODT) 4 mg disintegrating tablet Let 1 tablet dissolve under the tongue three times daily as needed for nausea or vomiting. 10 tablet 5 04/14/19 25 Encounters Date Type Department Care Team Description 04/07/2024 12:23 PM EST - 04/07/2024 5:14 PM [facility] Emergency [address] [place] [phone] Luis Eduardo Khoury MD Other acute gastritis without hemorrhage (Primary Dx) Discharge Disposition: Home or Self Care 03/18/2024 5:42 PM EST - 03/18/2024 6:41 PM [facility] Emergency [address] [place] [phone] Quirino Baez MD Cellulitis and abscess of buttock (Primary Dx) Discharge Disposition: Home or Self Care from Last 3 Months Surgical History Surgery Date Site/Laterality Comments BACK SURGERY Medical History Medical History Date Comments Arthritis Asthma Gastritis Social History Tobacco Use Types Packs/Day Years Used Date Smoking Tobacco: Every Day Cigarettes Smokeless Tobacco: Never Tobacco Cessation:Ready to Q uit: Not Asked; Counseling Given: Not Answered Alcohol Use Standard Drinks/Week Comments Never 0 (1 standard drink = 0.6 oz pur e alcohol) Comments Unknown Sex and Gender Information Value Date Recorded Sex Assigned at Female 03/18/2024 6:05 PM EST Legal Sex Female 5:37 AM EST Gender Identity Female 03/18/2024 6:05 PM EST Sexual Orientation Choose not to disclose 2024 6:05 PM EST Obstetrics History Last Filed Vital Signs Vital Sign Reading [...] Mass Index 29.63 04/07/2024 10:32 AM EST Plan of Treatment Health Maintenance Due Date Last Done Comments Breast Cancer Screening 1960 Pneumococcal Vaccine: 50+ Years (1 of 2 - PCV) 02/21/1979 Pneumococcal Vaccine: Pediatrics (0 to 5 Years) and At-Risk Patients (6 to 64 Years) (1 of 2 - PCV) 02/21/1979 Cervical Cancer Screening: Pap Smear 02/21/1981 Hepatitis B Vaccines (2 of 3 - 19+ 3-dose series) 12/01/2017 11/03/2017 RSV Immunization Patients 60+ Years Old (1 - Risk 60-74 years 1-dose series) 2020 Zoster Vaccines (2 of 2) 03/26/2020 01/30/2020 Colorectal Cancer Screening: Colonoscopy 01/24/2022 HIV Screening 01/24/2022 Social Influencers of Health Screening 01/24/2022 COVID-19 Vaccine ( season) 2023 03/18/2021, 07/02/2020, 06/04/2020 Influenza Vaccine (#1) 2023 , 01/30/2020, 01/03/2019 Depression Screening 11/28/2024 11/29/2023 DTaP,Tdap,and Td Vaccines (2 - Td or Tdap) 06/14/2025 06/15/2015 Cholesterol Screening (Lipid Panel) 11/28/2028 11/29/2023, 11/29/2023, 05/25/2023, Additional history exists Hepatitis C Screening Completed 03/20/2024 , 11/29/2023, 11/03/2017, Additional history exists HIB Vaccines Aged Out No longer eligi ble based on patient's age to complete this topic HPV Vaccines Aged Out No longer eligi ble based on patient's age to complete this topic Hepatitis A Vaccines Aged Out No long er eligible based on patient's age to complete this topic IPV Vaccines Aged Out No longer eligi ble based on patient's age to complete this topic MMR Vaccines Aged Out No longer eligi ble based on patient's age to complete this topic Meningococcal ACWY Vaccine Aged Out N o longer eligible based on patient's age to complete this topic Meningococcal B Vacine Aged Out No lo nger eligible based on patient's age to complete this topic RSV Immunization Patients Under 20 months Aged Out No longer eligible based on patient's age to complete this topic Varicella Vaccines Aged Out No longer eligible based on patient's age to complete this topic Procedures Procedure Name Priority Date/Time Associated Diagnosis Comments US ABDOMEN LIMITED STAT 04/07/2024 3: 36 PM EST CBC WITH AUTO DIFFERENTIAL STAT 04/07/2024 11:40 AM EST LIPASE STAT 04/07/2024 11:40 AM EST COMPREHENSIVE METABOLIC PANEL STAT 04/07/2024 11:40 AM EST CBC AND DIFFERENTIAL STAT 04/07/2024 11:40 AM EST from Last 3 Months Results * US Abdomen Limited (04/07/2024 3:36 PM EST) Anatomical Region Laterality Modality Body Ultrasound 04/07/2024 3:59 PM EST Impressions 04/07/2024 4:01 PM EST NORMAL SONOGRAPHIC APPEARANCE OF THE GALLBLADDER. -------- FINAL REPORT -------- Dictated By: Derek Albert Dictated Date: 04/07/2024 15:59 ET Assigned Physician: Derek Albert Reviewed and Electronically Signed By: Derek Albert Signed Date: 04/07/2024 16:01 ET Workstation ID: [id number] Transcribed By: Self Edit Transcribed Date: 04/07/2024 15:59 ET Narrative 04/07/2024 4:01 PM EST Exam: US ABDOMEN LIMITED Date of Study: 04/07/2024 3:35 PM CLINICAL INFORMATION: Eval for gallbladder disease TECHNIQUE: Real-time ultrasound scanning of the region of interest performed by the tree tapping laborer. Textile Examiner static images and video clips are submitted [...] of the region of interestperformed by the tree tapping laborer. Textile Examiner static images and video clipsare submitted for [...] Signed Date: 04/07/2024 16:01 ET Workstation ID: [id number] Transcribed By: Self Edit Transcribed Date: 04/07/2024 15:59 ET us Weston BARNETT IMG US PROCEDURES Final Resu lt * (ABNORMAL) CBC auto differential (04/07/2024 11:40 AM EST) [facility] Signature WBC 8.3 4.8 - 10.8 K/mcL LAB HEMETOLOGY METHOD 04/07/2024 12:01 PM [facility] RBC 3.90 3.80 - 4.80 M/mcL LAB HEMETOLOGY METHOD 04/07/2024 12:01 PM [facility] Hemoglobin 11.9 11.5 - 16.0 g/dL LAB HEMETOLOGY METHOD 04/07/2024 12:01 PM [facility] Hematocrit 37.4 35.0 - 47.0 % LAB HEMETOLOGY METHOD 04/07/2024 12:01 PM [facility] MCV 96.4 79.0 - 98.0 FL LAB HEMETOLOGY METHOD 04/07/2024 12:01 PM [facility] MCH 30.7 27.0 - 32.0 pcg LAB HEMETOLOGY METHOD 04/07/2024 12:01 PM [facility] MCHC 31.8(L) 32.0 - 37.0 g/dL LAB HEMETOLOGY METHOD 04/07/2024 12:01 PM [facility] RDW 15.0 11.0 - 15.0 % LAB HEMETOLOGY METHOD 04/07/2024 12:01 PM [facility] Platelets 193 130 - 400 K/mcL LAB HEMETOLOGY METHOD 04/07/2024 12:01 PM [facility] MPV 11.1(H) 7.0 - 11.0 FL LAB HEMETOLOGY METHOD 04/07/2024 12:01 PM [facility] NRBC 0.0 <1.0 % LAB HEMETOLOGY METHOD 04/07/2024 12:01 PM [facility] NRBC Absolute 0.00 <0.10 K/mcL LAB HEMETOLOGY METHOD 04/07/2024 12:01 PM [facility] Neutrophils Relative 47.9 % LAB HEMETOLOGY METHOD 04/07/2024 12:01 PM [facility] Lymphocytes Relative 42.6 % LAB HEMETOLOGY METHOD 04/07/2024 12:01 PM [facility] Monocytes Relative 5.5 % LAB HEMETOLOGY METHOD 04/07/2024 12:01 PM [facility] Eosinophils Relative 3.3 % LAB HEMETOLOGY METHOD 04/07/2024 12:01 PM [facility] Basophils Relative 0.6 % LAB HEMETOLOGY METHOD 04/07/2024 12:01 PM [facility] Immature Granulocytes Relative 0.1 % LAB HEMETOLOGY METHOD 04/07/2024 12:01 PM [facility] Neutrophils Absolute 3.97 1.50 - 7.00 K/mcL LAB HEMETOLOGY METHOD 04/07/2024 12:01 PM [facility] Lymphocytes Absolute 3.53 1.00 - 5.00 K/mcL LAB HEMETOLOGY METHOD 04/07/2024 12:01 PM [facility] Monocytes Absolute 0.46 0.20 - 1.00 K/mcL LAB HEMETOLOGY METHOD 04/07/2024 12:01 PM [facility] Eosinophils Absolute 0.27 0.00 - 0.50 K/mcL LAB HEMETOLOGY METHOD 04/07/2024 12:01 PM [facility] Basophils Absolute 0.05 0.00 - 0.20 K/mcL LAB HEMETOLOGY METHOD 04/07/2024 12:01 PM [facility] Immature Granulocytes Absolute 0.01 0.00 - 0.03 K/mcL LAB HEMETOLOGY METHOD 04/07/2024 12:01 PM EST [facility] Blood Venous blood specimen / Unknown Venipuncture / Unknown 04/07/2024 11:40 AM EST 04/07/2024 11:53 AM EST Luis Eduardo Khoury MD LAB BLOOD ORDERABLES Final Result Performing Organization Address [facility]/ZIP Co de Phone Number [facility] [address] [place] [address], [place] [phone] * Lipase (04/07/2024 11:40 AM EST) [facility] Lipase 39 13 - 75 unit/L LAB CHEMISTRY METHOD 04/07/2024 12:23 PM [facility] Blood Venous blood specimen / Unknown Venipuncture / Unknown 04/07/2024 11:40 AM EST 04/07/2024 11:53 AM EST Luis Eduardo Khoury MD LAB BLOOD ORDERABLES Final Result Performing Organization Address [facility] de Phone Number [facility] [address] [place] [address], [place] [phone] * (ABNORMAL) Comprehensive metabolic panel (04/07/2024 11:40 AM EST) [facility] Sodium 138 133 - 145 mmol/L LAB CHEMISTRY METHOD 04/07/2024 12:25 PM [facility] Potassium 4.6 3.5 - 5.5 mmol/L LAB CHEMISTRY METHOD 04/07/2024 12:25 PM [facility] Chloride 106 96 - 110 mmol/L LAB CHEMISTRY METHOD 04/07/2024 12:25 PM [facility] CO2 30 21 - 32 mmol/L LAB CHEMISTRY METHOD 04/07/2024 12:25 PM [facility] Anion Gap 2(L) 3 - 11 LAB CHEMISTRY METHOD 04/07/2024 12:25 PM [facility] Glucose 97 70 - 100 mg/dL LAB CHEMISTRY METHOD 04/07/2024 12:25 PM [facility] BUN 9 5 - 25 mg/dL LAB CHEMISTRY METHOD 04/07/2024 12:25 PM [facility] Creatinine 0.66 0.50 - 1.10 mg/dL LAB CHEMISTRY METHOD 04/07/2024 12:25 PM [facility] eGFR 98 >=60 mL/min/1. 73m2 LAB CHEMISTRY METHOD 04/07/2024 12:25 PM [facility] Comment:Calculation based on the??Chronic Kidney Disease Epidemiology Collaboration (CKD-EPI) equation refit??without adjustment for race. BUN/Creatinine Ratio 13.6 LAB CHEMISTRY METHOD 04/07/2024 12:25 PM [facility] Calcium 9.2 8.5 - 10.5 mg/dL LAB CHEMISTRY METHOD 04/07/2024 12:25 PM [facility] AST (SGOT) 14 10 - 42 unit/L LAB CHEMISTRY METHOD 04/07/2024 12:25 PM [facility] ALT (SGPT) 22 10 - 60 unit/L LAB CHEMISTRY METHOD 04/07/2024 12:25 PM [facility] Alkaline Phosphatase 124(H) 42 - 121 unit/L LAB CHEMISTRY METHOD 04/07/2024 12:25 PM [facility] Total Protein 7.2 6.0 - 8.0 g/dL LAB CHEMISTRY METHOD 04/07/2024 12:25 PM [facility] Albumin 3.4 3.2 - 5.0 g/dL LAB CHEMISTRY METHOD 04/07/2024 12:25 PM [facility] Total Bilirubin 0.3 0.0 - 1.4 mg/dL LAB CHEMISTRY METHOD 04/07/2024 12:25 PM [facility] Blood Venous blood specimen / Unknown Venipuncture / Unknown 04/07/2024 11:40 AM EST 04/07/2024 11:53 AM EST us Luis Eduardo Khoury MD LAB BLOOD ORDERABLES Final Result [facility] [address] [place] [address], from Last 3 Months Insurance MEDICAID - [place] Care Teams Data Warehousing Specialist Relationship Specialty Start Date End Date Thu Clark PA [address] [place] [phone] PCP - General Physician Liability Claims Manager 03/18/24
--- OUTSIDE RECORDS SUMMARY | 2024-04-25 17:39 | XMS_ITS | Encounter Summary ---
Author Organization [facility] Address [address] [place] [address] Care Team Providers Care Roper Operator Name Role Phone Thu Clark PA-C Primary Care Provider + [phone] Reason for Visit * Reason Comments Care Coordination Encounter Details Date Type Department Care Team ([facility] st Contact Info) Description 04/10/2024 Interim Notes Caring [facility] [address] [place] [phone] Felicitas Jiang [address] [place] [address] Social History Tobacco Use Types Packs/Day Years Used Date Smoking Tobacco: Every Day Cigarettes 0.3 50.2 Started: 02/21/1974 Passive Smoke Exposure: Never Smokeless Tobacco: Never Comments:2-3 cigs a day Alcohol Use Standard Drinks/Week Comments Not Currently 0 (1 standard drink = 0.6 oz pur e alcohol) Social Connections Answer Date Recorded Connectedness 1 11/29/2023 Financial Resource Strain Answer Date R ecorded Financial Resource Strain 1 2023 Stress Answer Date Recorded Stress 1 11/29/2023 Physical Activity Answer Date Recorded Physical Activity 0 07/29/2020 Food Insecurity Answer Date Recorded Food 2 12/20/2023 Transportation Needs Answer Date Record ed Transportation 1 12/20/2023 Housing Stability Answer Date Recorded Housing 1 12/20/2023 Safety and Environment Answer Date Michael rded Safety 0 11/10/2022 Utilities Answer Date Recorded Utilities 2 12/20/2023 Employment Answer Date Recorded Stress 0 07/29/2020 Comments No Sex and Gender Information Value Date Recorded Sex Assigned at Female 02/01/2017 5:23 PM PST Legal Sex Female 11:36 AM PDT Gender Identity Female 02/01/2017 5:23 PM PST Sexual Orientation Straight 02/01/2017 5: 23 PM PST documented as of this encounter Progress Notes * Felicitas Jiang - 04/10/2024 11:27 AM EST Patient identified through ADT feed. Patient admitted 04/07/24 and discharged 04/07/24 from [facility]. Patient is on the wait list for a new patient appointment. Assigned to Viviane Phillips. documented in this encounter Plan of Treatment Not on file documented as of this encounter Visit Diagnoses Not on filedocumented in this encounter Additional Health Concerns Assessment Noted Time PHQ-9 Depression Total Score: 0 11/29/19 24 2:05 PM PDT documented as of this encounter Care Teams Roper Operator Relationship Specialty Start Date End Date Thu Clark PA-C [facility] [place] [phone] PCP - General Internal Medicine 04/30/20 documented as of this encounter
--- OUTSIDE RECORDS SUMMARY | 2024-04-25 17:39 | XMS_ITS | Encounter Summary ---
Author Organization [facility] Address [address] [place] [address] Care Team Providers Care Bead Cutter Name Role Phone Thu Clark PA-C Primary Care Provider [phone] Encounter Details Date Type Department Care Team ([facility] st Contact Info) Description 03/20/2020 Scan Pathology [facility] [address] [place] [phone] Thu Clark PA-C [address] [place] [phone] Social History Tobacco Use Types Packs/Day Years Used Date Smoking Tobacco: Some Days Cigarettes Smokeless Tobacco: Current Comments:2-3 cigs a day Alcohol Use Standard Drinks/Week Comments Not Currently 0 (1 standard drink = 0.6 oz pur e alcohol) Social Connections Answer Date Recorded Social Connections and Isolation 1 04/05/2019 Financial Resource Strain Answer Date R ecorded Financial Resource Strain 2 2019 Stress Answer Date Recorded Stress 2 04/05/2019 Physical Activity Answer Date Recorded Physical Activity 2 04/05/2019 Food Insecurity Answer Date Recorded Food 2 04/05/2019 Transportation Needs Answer Date Record ed Transportation 2 04/05/2019 Housing Stability Answer Date Recorded Housing 1 04/05/2019 Safety and Environment Answer Date Michael rded Safety 1 04/05/2019 Utilities Answer Date Recorded Utilities 2 04/05/2019 Employment Answer Date Recorded Employment 1 04/05/2019 Comments No Sex and Gender Information Value Date Recorded Sex Assigned at Female 02/01/2017 5:23 PM PST Legal Sex Female 11:36 AM PDT Gender Identity Female 02/01/2017 5:23 PM PST Sexual Orientation Straight 02/01/2017 5: 23 PM PST COVID-19 Exposure Response Date Recorded In the last month, have you been in contact with someone who was confirmed or suspected to have Coronavirus / COVID-19? No / Unsure 02/25/2020 11:24 AM PST documented as of this encounter Plan of Treatment Not on file documented as of this encounter Procedures Procedure Name Priority Date/Time Associated Diagnosis Comments PATHOLOGY SCANNED DOCUMENT 03/20/2020 3:00 AM EST documented in this encounter Results * PATHOLOGY SCANNED DOCUMENT (03/20/2020 3:00 AM EST) 03/20/2020 3:00 AM EST Thu Clark PA-C [facility] Final Result documented in this encounter Visit Diagnoses Not on filedocumented in this encounter Additional Health Concerns Infection Onset Date Last Indicated Resolved Time COVID-19 (rule-out) Comment:Added automatically based on ordered lab. 05/02/2020 05/02/2020 05/06/2020 7:14 AM P DT COVID-19 (rule-out) Comment:Added automatically based on ordered lab. 09/15/2020 09/15/2020 09/15/2020 7:28 AM P DT Assessment Noted Time PHQ-9 Depression Total Score: 20 020 3:26 PM PST documented as of this encounter Care Teams Bead Cutter Relationship Specialty Start Date End Date Thu Clark PA-C [facility] [place] [phone] PCP - General Internal Medicine 04/30/20 documented as of this encounter
--- OUTSIDE RECORDS SUMMARY | 2024-04-25 17:39 | XMS_ITS | Clinical Summary ---
Author Organization [facility] Address [address] [place] [address] Care Team Providers Care Cribber Name Role Phone Thu Kwan PA-C Primary Care Provider + [phone] Source Comments PLEASE NOTE, if this patient is a minor, it may be UNLAWFUL to discuss sensitive information that is contained in these records (such as FAMILY PLANNING, MENTAL HEALTH or SUBSTANCE ABUSE) with the minor patient's parent or other person without the patient's specific authorization.[facility] Allergies No known active allergies Medications calcium carbonate-vitamin D3 500 mg(1,250mg) -400 unit tabletIndications: Osteopenia of multiple sites Take 1 Tab by mouth once daily 30 Tab 5 03/12/19 20 Active albuterol sulfate 90 mcg/actuation inhalerIndications :Mild persistent asthma without complication Inhale 2 Puffs into the lungs every 4 to 6 (four to six) hours as needed for shortness of breath or wheezing 18 g 5 01/30/20 20 Active riboflavin, vitamin B2, 400 mg tabIndications:Lavon deo without status migrainosus, not intractable, unspecified migraine type Take 1 Tablet by mouth once daily 90 Tablet 04/02/19 21 Active coenzyme Q10 100 mg capsuleIndications :Migraine without status migrainosus, not intractable, unspecified migraine type Take 1 Capsule by mouth once daily 90 Capsule 04/02/19 21 Active SUMAtriptan succinate (IMITREX) 50 mg tabletIndications: Migraine without status migrainosus, not intractable, unspecified migraine type Take 1 Tablet by mouth once as needed for migraine for up to 1 dose 20 Tablet 1 04/02/19 21 Active melatonin 5 mg tabIndications:Tro uble in sleeping Take 1 Tablet by mouth nightly at bedtime as needed (sleep) 90 Tablet 04/02/19 21 Active diclofenac sodium (VOLTAREN) 1 % gelIndications:Lum bar degenerative disc disease Apply 2 gm QID to bilateral hands 100 g 11 05/03/19 21 Active celecoxib (CELEBREX) 200 mg capsule TAKE 1 CAPSULE BY MOUTH TWICE DAILY. STOP MELOXICAM 60 Capsule 2 08/22/19 22 Active levothyroxine 25 mcg tabletIndications: Acquired hypothyroidism Take 1 Tablet by mouth once daily 30 Tablet 6 10/17/19 22 Active sucralfate (CARAFATE) 1 gram tabletIndications: Epigastric pain Take 1 Tablet by mouth 4 (four) times daily 90 Tablet 1 03/02/19 23 Active meclizine (ANTIVERT) 25 mg tabletIndications: Benign paroxysmal positional vertigo, unspecified laterality Take 0.5 Tablets by mouth 2 (two) times daily as needed for nausea 30 Tablet 03/10/19 23 Active fluticasone (FLONASE) 50 mcg/actuation nasal sprayIndications:V iral sinusitis Place 1 [place] in both nostrils once daily 16 g 09/19/19 23 Active aspirin-acetaminop hen-caffeine (EXCEDRIN MIGRAINE) 250-250-65 mg per tabletIndications: Migraine without aura and without status migrainosus, not intractable Take 1 Tablet by mouth every 6 (six) hours as needed for pain 120 Tablet 09/19/19 23 Active buPROPion HCL (WELLBUTRIN) 75 mg tabletIndications: Anxiety and depression Take 150 mg by mouth 2 (two) times daily 09/16/19 [address] tabletIndications: Hyperlipidemia, mixed Take 1 Tablet by mouth once daily 90 Tablet 2 03/08/19 24 Active alum-mag hydroxide-simeth (MAALOX MAX) 400-400-40 mg/5 mL suspensionIndicati ons:Dyspepsia Take 10 mL by mouth every 6 (six) hours as needed for indigestion 335 mL 2 05/25/19 24 Active codeine-guaifenesi n (ROBITUSSIN-AC) 10-100 mg/5 mL syrupIndications:A cute pharyngitis, unspecified etiology Take 5 mL by mouth 3 (three) times daily as needed for cough or congestion DO NOT TAKE with TRAMADOL at the same time 120 mL 11/29/19 24 Active omeprazole (PRILOSEC) [address] capsuleIndications :Dyspepsia Take 1 Capsule by mouth every morning before breakfast 90 Capsule 1 11/29/19 24 Active sennosides-docusat e sodium (ROMAINE-COLACE) 8.6-50 mg per tabletIndications: Functional constipation Take 2 Tablets by mouth nightly at bedtime 180 Tablet 1 11/29/19 24 Active amoxicillin (AMOXIL) 875 mg tabletIndications: Acute pharyngitis, unspecified etiology Take 1 Tablet by mouth 2 (two) times daily 20 Tablet 11/29/19 24 Active famotidine (PEPCID) 40 mg tabletIndications: Dyspepsia TAKE 1 TABLET BY MOUTH DAILY 90 Tablet 2 03/02/19 25 Active traMADoL (ULTRAM) 50 mg tabletIndications: Lumbar degenerative disc disease Take 1 Tablet by mouth nightly at bedtime 30 Tablet 3 03/14/19 25 Active rosuvastatin (CRESTOR) 40 mg tabletIndications: Hyperlipidemia, mixed,Tobacco abuse Take 1 Tablet by mouth nightly at bedtime 90 Tablet 3 03/20/19 25 Active valACYclovir (VALTREX) 1 gram tabletIndications: Herpes genitalis in women Take 1 Tablet by mouth 3 (three) times daily for 7 days 21 Tablet 03/20/19 25 025 Active Problems Problem Noted Date Diagnosed Date Acquired hypothyroidism 10/16/2021 Nephrolithiasis, right kidney, 2 mm 09/2020 Interstitial lung disease (HCC-CMS) on LDCT 07/2308/21/2020 Osteopenia of multiple sites 03/08/2019 Overview (03/08/2019): [facility] June 21, 2016 AP Spine (L1-L4) 0.885 -1.5 -0.3 Osteopenia Femoral Neck (Left) 0.685 -1.6 -0.5 Osteopenia Total Hip (Left) 0.850 -0.8 0.0 Normal Pulmonary nodule- 11/09/2017 Per report Continue annual screening with LDCT in 12 months. 03/08/2019 Overview (03/08/2019): LUNG NODULES: CT Chest LDCT Lung Screening 11/09/2017 RIGHT lung: Present, detailed below: 0.4 cm solid nodule within the right lower lobe (image 192 series 6). 0.3 cm ground glass nodule within the right lower lobe image 250 series 6). 0.3 cm calcified granuloma within the right middle lobe (image 260 series 6). LEFT lung: Present, detailed below: 0.2 cm solid nodule within left upper lobe (image 107 series 6). 0.7 cm calcified granuloma within the left lower lobe and image 237 series 6). 0.2 cm solid nodule within left lower lobe (image 245 series 6). IMPRESSION: 1. Scattered noncalcified bilateral pulmonary nodules measuring up to 0.4 cm. LungRad Category: 2 Benign Appearance or Behavior. Nodules with a very low likelihood of becoming a clinically active cancer due to size or lack of growth. Continue annual screening with LDCT in 12 months. 2. Modifier S : Significant additional findings likely requires further evaluation: Patchy areas of subpleural fibrosis, particularly in the upper lobes, with apparent microcystic honeycombing in the left upper lobe. Findings are indicative of interstitial lung disease, with a fibrotic NSIP vs UIP pattern. 3. Moderate coronary artery calcification. Primary osteoarthritis of left knee 11/07/2018 Overview (11/08/2018): Per [facility] [place] 11/07/2018 Diagnostic radiology- Knee 1 or 2 views left Impression: mild midial tibiofemoral joint space loss, usually degenerative Functional constipation 04/15/2015 Insomnia 04/15/2015 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 COMMENTS: Contrast-enhanced Chest CT examination ([place] VCT, 147.60 DLP (mGy-cm)) with imaging from the lung apices to the hemidiaphragms following the uneventful intravenous administration of 80 cc Isovue-370 intravenous contrast material. Direct comparison to noncontrast chest CT 08/01/2014. Direct correlation to chest radiographs 01/22/2014 and 02/24/2014. Cardiac size within normal limits. Coronary artery calcification. Thoracic aorta normal in caliber. No pericardial effusion, pleural effusion or pneumothorax. Grossly stable left hilar calcified lymph nodes and anterior left lower lobe subcentimeter rounded calcification, perhaps related to previous granulomatous infection. Nonspecific nonenlarged mediastinal and hilar lymph nodes. Grossly patent central tracheobronchial tree with mild adherent endotracheal nodular mucoid debris. Essentially stable abnormal primarily anterior peripheral bilateral upper lobe interstitial fibrosis with superimposed groundglass alveolar pattern and essentially stable abnormal bilateral (left greater than right) posterior lower lobe relatively geographic ground groundglass alveolar pattern with mild bronchiolectasis. No developing focal alveolar consolidation. Osseous demineralization morphology by CT analysis may be correlated with bone densitometry if not already known. IMPRESSION: Essentially stable Chest CT examination when compared to 08/31/2014 includes evidence of previous granulomatous infection, pulmonary interstitial fibrosis and nonspecific groundglass alveolar disease with no developing dominant pulmonary mass or focal alveolar consolidation; clinical correlation requested and followup recommended. Asthma, mild intermittent 04/18/2013 Cystic mastopathy 01/22/2008 Lumbar degenerative disc disease Overview (03/12/2019): [facility] 03/02/2019 on examination I could find no abnormality in the lower extremities ... no evidence of DVT or peripheral artery obstruction ... her symptoms seem to be coming from her back and I suggested she be evaluated along those lines. We do not need to see her again. [place] Lumbar Spine W[place] [facility] [place] No marrow or disc space abnormality suspicious for infection is demonstrated. No paravertebral edema is present. No abnormal contrast enhancement Is noted. Mild annular bulging is present at L3-4 with a tiny left paramedian and inferior disc extrusion. No stenosis or nerve root compression is produced. Mild annular bulging and a posterior annular tear are present at L4-5 without stenosis. A small central and left paramedian disc extrusion at L5-S1 is in contact with, but does not appear to distort, the left S1 nerve root. No definite change is noted from 07/17/2018. RESULT: [place] Lumbar Spine W+W/[place] [facility] [place] ALIGNMENT, VERTEBRAE, MARROW, AND DISCS: There is minimal large listhesis of L5 on S1. Alignment is otherwise preserved. Vertebral body heights are maintained. No marrow edema or marrow suspicious marrow signal abnormality is seen. Minimal degenerative endplate changes are noted, including Modic 2 fatty endplate change at L2-3. There is mild desiccation of intervertebral discs between L4 and S1, with mild loss of intervertebral disc height at L5-S1. No fluid signal or abnormal enhancement is seen in the intervertebral discs. No abnormal epidural enhancement or fluid collection is seen. CONUS: There is a normal termination of the conus at T12-L1. No abnormal intradural enhancement is seen. PARASPINAL TISSUES: Visualized paraspinal soft tissues are unremarkable. No abnormal enhancement or fluid collections are seen. DETAILED FINDINGS BY LEVEL: L1-L2: No significant disc herniation, central stenosis, or neural foraminal narrowing. L2-L3: No significant disc herniation, central stenosis, or neural foraminal narrowing. L3-L4: Mild broad-based disc bulge, with small left procedure protrusion with annular fissure, resulting in minimal central stenosis, and mild left and no right neural foraminal narrowing. Trace right facet effusion and mild facet arthropathy are noted. Disc bulge abuts the traversing left L4 nerve roots without compression. L4-L5: Mild progress posterior disc bulge with small central annular fissure. Trace bilateral facet effusions and facet arthropathy. No significant central stenosis. Minimal bilateral neural foraminal narrowing. No nerve root compression. L5-S1: Broad-based posterior disc bulge and prominence of epidural fat. No significant central stenosis. Mild right greater than left neural foraminal narrowing, without nerve root compression. IMPRESSION: 1. No evidence of spinal infection, high-grade stenosis, nerve root compression, or other acute abnormality. 2. Mild degenerative IMPRESSION: 1. No evidence of infection. 2. Degenerative disc disease from L3 through S1 without evidence of stenosis or focal nerve root compression and without change. Anxiety and depression Overview (07/03/2019): currently not taking any prescribed meds by PCP 06/2019 Hyperlipidemia, mixed Tobacco abuse H/O colonoscopy 02/2011 Overview (09/12/2018): Result type: Special Procedure/Gastro Note Result date: 01 March 2011 2:52 Result status: Auth (Verified) Result title: 7B Encounter info: [id number], [facility], [facility], 03/01/2011 - 03/01/2011 Contributor system: [employer] * Final Report * 7B Colonoscopy and EGD Report Endoscopist(s): Elfego Brower MD Date: Tuesday, March 01, 2011 Ref. Phys.: ERICKA SWAIN Patient: CAROL BELLA Assisting Nurse(s)/ Other Personnel: ANTONINO HESS, S Colonoscopy Instrument: [id number] ([id number]) Date: 1960 (51 years) EGD Instrument: GIF [id number] ([id number]) ASA Class: P2 C Account: [id number] Medications: Versed 5 mg Meperidine 100mg Indications: Rectal bleeding Dyspepsia-acid Screening Colonoscopy Colonoscopy and EGD: The procedure, indications, preparation and potential complications were explained to the patient, who indicated her understanding and signed the corresponding consent forms. A physical exam was performed. The patient was administered moderate sedation. The patient tolerated the procedure well. The procedure was not difficult. The quality of the preparation was good. There were no complications. EGD overview: An endoscope was introduced through the mouth and advanced under direct visualization until the second part of the duodenum was reached. EGD Findings: Esophagus: Mucosa: Normal mucosa was noted. Stomach: Mucosa: Normal mucosa was noted. Duodenum: Mucosa: Normal mucosa was noted. EGD Impressions: Normal EGD Colonoscopy overview: A colonoscope was introduced through the rectum and advanced under direct visualization until the cecum was reached. The appendiceal orifice and ileo- cecal valve were identified. Careful visualization of the colon was performed as the colonoscope was withdrawn. The patient tolerated the procedure well. Colonoscopy Findings: Protruding Lesions Small internal & external hemorrhoids were noted. Colonoscopy Impressions: Internal & external hemorrhoids, otherwise normal colonoscopy to the cecum Recommendations: Follow-up with Dr. KWAN as needed Follow up with rose grower as scheduled Maintain a high fiber diet Resume taking your current medications In the absence of a family history of colorectal cancer would repeat colonoscopy in 10 years Elfego Brower MD Case documentation started on 03/01/2011 1:58:09 PM Patient: CAROL BELLA ([id number] ) Resolved Problems Problem Noted Date Diagnosed Date Resolved Date HELICOBACTER PYLORI (H. PYLORI) 03/10/2022 Encounters Date Type Department Care Team Description 04/10/2024 Interim Notes [address] [phone] Eduardo Jiangeline 03/20/2024 2:00 PM EST Office Visit [address] [phone] Thu Kwan PA-C Hyperlipidemia, mixed (Primary Dx); Tobacco abuse; Herpes genitalis in women; Epigastric pain; STD exposure; Somnolence from Last 3 Months Immunizations Name Administration Dates Next Due Flu, Preservative Free 12/15/2020,01/30/2020, Hep B, Adult/Adol (ENERGIX/RECOMBIVAX) 8 Moderna COVID-19 Vaccine, re d cap blue label, 12+ Primary Series 07/02/2020,06/04/2020 TDAP 06/14/2015 ZOSTER VACCINE, RECOMBINANT (SHINGRIX) 0 Social History Tobacco Use Types Packs/Day Years Used Date Smoking Tobacco: Every Day Cigarettes 0.3 50.2 Started: 02/21/1974 Passive Smoke Exposure: Never Smokeless Tobacco: Never Tobacco Cessation:Ready to Q uit: No; Counseling Given: Yes Comments:2-3 cigs a day Alcohol Use Standard [...] Orientation Straight 02/01/2017 5: 23 PM PST Last Filed Vital Signs Vital Sign Reading Time Taken Comments Blood Pressure 116/68 03/20/2024 1:37 PM EST Pulse 80 03/20/2024 1:37 PM EST Temperature 36.8 ??C (98.2 ??F) 03/20/2024 1:37 PM ES T Respiratory Rate 16 03/20/2024 1:37 PM EST Oxygen Saturation 98% 03/20/2024 1:37 PM EST Inhaled Oxygen Concentration - - Weight 73 kg (161 lb) 03/20/2024 1:37 PM EST Height 152.4 cm (5') 03/20/2024 1:37 PM EST Body Mass Index 31.44 03/20/2024 1:37 PM EST Plan of Treatment Health Maintenance Due Date Last Done Comments STI Counseling 1960 CT Colonography 02/21/2005 Fecal DNA 02/21/2005 Flexible Sigmoidoscopy 02/21/2005 Imm-Hepatitis B (2 of 3 - Risk 3-dose series) 12/01/2017 11/03/2017 Urine Drug Screen 05/02/2018 05/02/2017 FIT/gFOBT 11/25/2019 11/24/2018, 02/22 (Declined), 02/08/2013 Pap Smear 03/20/2023 03/20/2020, 02/22, 06/03/2015, Additional history exists Alcohol and Drug Screen 2024 11/29/19 24, 11/10/2022, 10/12/2021, Additional history exists Depression Monitoring 02/29/2024 11/29/2023 , 11/10/2022, 10/12/2021, Additional history exists [id number] () 06/18/2024 03/18/2021, 07/02/2020, 06/04/2020 Postponed from 10/23/2023 (Patient postponement) Imm-Zoster, Recombinant (2 of 2) 06/18/2024 01/30/2020 Postponed from 03/26/2020 (Patient postponement) Annual Preventive Care Visit 11/28/2024 11/29/2023, 08/03/2022, 01/30/2020, Additional history exists Lipid Screening 11/28/2024 11/29/2023, 04/2023, 11/10/2022, Additional history exists Cervical Cancer Screening 03/20/2025 Diabetes Screening 03/20/2025 03/20/2024, 1 , 11/29/2023, Additional history exists HPV Screening 03/20/2025 03/20/2020 Hypertension Screening (#1) 03/20/2025 Pap + HPV 03/20/2025 03/20/2020, 02/22, 06/03/2015, Additional history exists Syphilis Screening 03/20/2025 03/20/2024, 1 , 11/10/2022, Additional history exists TSH Monitoring 03/20/2025 03/20/2024, 09/2023, 05/25/2023, Additional history exists Tobacco Cessation Counseling (#1) 03/20/2025 01/30/2020, 02/13/2015 Colonoscopy 11/24/2028 11/24/2018 Colorectal Cancer Screening 11/24/2028 Breast Cancer Screening (Mammogram) Discontinued 02/08/2013, 03/02/2010, 12/11/2008, Additional history exists Imm-DTaP/Tdap/Td Discontinued 06/14/2015 Colposcopy Discontinued 11/24/2018 Imm-Influenza Discontinued 12/15/2020, 10/2019, 01/03/2019, Additional history exists HIV Screening Completed 03/20/2024, 09/2023, 11/10/2022, Additional history exists Hepatitis C Screening Completed 03/20/2024 , 11/29/2023, 11/10/2022, Additional history exists Cervical Ablation/Cold-Knife Conization Discontinued Cervical Cryotherapy Discontinued Endometrial Biopsy Discontinued Excision/Leep Discontinued HPV Genotyping Discontinued Imm-Pneumococcal Discontinued Vaginal Pap Discontinued Vulvoscopy Discontinued Procedures Procedure Name Priority Date/Time Associated Diagnosis Comments IMAGING SCANNED DOCUMENT 04/07/2024 3:00 AM EST LYME DISEASE, IGG/IGM AB, WESTERN BLOT Routine 03/20/2024 2:05 PM EST Hyperlipidemia, mixed Tobacco abuse Herpes genitalis in women Epigastric pain STD exposure Somnolence TSH W/RFLX FREE T4 Routine 03/20/2024 2: 05 PM EST Hyperlipidemia, mixed Tobacco abuse Herpes genitalis in women Epigastric pain STD exposure Somnolence COMPREHENSIVE METABOLIC PANEL Routine 03/20/2024 2:05 PM EST Hyperlipidemia, mixed Tobacco abuse Herpes genitalis in women Epigastric pain STD exposure Somnolence BLOOD COUNT COMPLETE AUTO&AUTO DIFRNTL WBC Routine 03/20/2024 2:05 PM EST Hyperlipidemia, mixed Tobacco abuse Herpes genitalis in women Epigastric pain STD exposure Somnolence HIV 1/2 AG & AB W/RFLX (4TH GEN) Routine 03/20/2024 2:05 PM EST Hyperlipidemia, mixed Tobacco abuse Herpes genitalis in women Epigastric pain STD exposure Somnolence HEPATITIS C AB W/RFLX HCV RNA, QT, RT PCR Routine 03/20/2024 2:05 PM EST Hyperlipidemia, mixed Tobacco abuse Herpes genitalis in women Epigastric pain STD exposure Somnolence HEPATITIS B SURFACE AG, EIA WITH REFLEX CONFIRM Routine 03/20/2024 2:05 PM EST Hyperlipidemia, mixed Tobacco abuse Herpes genitalis in women Epigastric pain STD exposure Somnolence RPR (DIAGNOSIS) WITH REFLEX TO TITER AND CONFIRMATORY TESTING Routine 03/20/2024 2:05 PM EST Hyperlipidemia, mixed Tobacco abuse Herpes genitalis in women Epigastric pain STD exposure Somnolence C TRACHOMATIS/N GONORRHOEAE RNA,TMA Routine 03/20/2024 2:05 PM EST Hyperlipidemia, mixed Tobacco abuse Herpes genitalis in women Epigastric pain STD exposure Somnolence REFERRAL SCANNED DOCUMENT 03/16/2024 3:00 AM EST LIPID PANEL Routine 11/29/2023 3:05 PM EDT Routine general medical examination at a health care facility Hyperlipidemia, mixed Dyspepsia Tobacco abuse Lumbar degenerative disc disease Functional constipation Acute pharyngitis, unspecified etiology STD exposure PAP SMEAR W/HPV, ABSTRACTED Routine 03/20/2020 COLPOSCOPY, ABSTRACTED Routine 11/24/2018 URINE DRUG SCREEN Routine 05/02/2017 11: 40 AM EDT Chronic midline low back pain without sciatica from Last 3 Months or Most Recently Relevant to Health Maintenance Results * IMAGING SCANNED DOCUMENT (04/07/2024 3:00 AM EST) 04/07/2024 3:00 AM EST us Thu Kwan PA-C SCAN IMAGING Final Result * RPR (DIAGNOSIS) WITH REFLEX TO TITER AND CONFIRMATORY TESTING (03/20/2024 2:05 PM EST) RPR (DX) W/REFL TITER AND CONFIRMATORY TESTING NON-REACT SEFERINO NON-REACT SEFERINO [employer] [facility] Comment: No laboratory evidence of syphilis. If recent exposure is suspected, submit a new sample in 2-4 weeks. Serum Blood / Unknown 03/20/2024 2 :05 PM EST 03/20/2024 2:05 PM EST Narrative [employer] - 03/21/2024 8:57 PM EST FASTING:NO Thu Kwan PA-C LAB - BLOOD DRAW Edited Resu lt - Final [employer] [address] [address], [employer] [address] [phone] * HEPATITIS C AB W/RFLX HCV RNA, QT, RT PCR (03/20/2024 2:05 PM EST) HEPATITIS C ANTIBODY NON-REACT SEFERINO NON-REACT SEFERINO [employer] [facility] Comment: HCV antibody was non-reactive. There is no laboratory evidence of HCV infection. In most cases, no further action is required. However, if recent HCV exposure is suspected, a test for HCV RNA (test code 56591) is suggested. For additional information please refer to http://[employer] App/faq/LXE71z6 (This link is being provided for informational/ educational purposes only.) Blood Blood / Unknown 03/20/2024 2 :05 PM EST 03/20/2024 2:05 PM EST Narrative [employer] - 03/21/2024 8:57 PM EST FASTING:NO us Thu Kwan PA-C LAB - BLOOD DRAW Edited Resu lt - Final [employer] [address] [place] [id number], [employer] [address] [address] * HIV 1/2 AG & AB W/RFLX (4TH GEN) (03/20/2024 2:05 PM EST) HIV AG/AB, 4TH GEN NON-REAC TIVE NON-REAC TIVE [employer] Comment: HIV-1 antigen and HIV-1/HIV-2 antibodies were not detected. There is no laboratory evidence of HIV infection. PLEASE NOTE: This information has been disclosed to you from records whose confidentiality may be protected by state law. ??If your state requires such protection, then the state law prohibits you from making any further disclosure of the information without the specific written consent of the person to whom it pertains, or as otherwise permitted by law. A general authorization for the release of medical or other information is NOT sufficient for this purpose. ?? For additional information please refer to http://[employer]High[employer].MetroMile/faq/VGG387 (This link is being provided for informational/ educational purposes only.) The performance of this assay has not been clinically validated in patients less than 2 years old. Blood Blood / Unknown 03/20/2024 2 :05 PM EST 03/20/2024 2:05 PM EST Narrative [employer] - 03/21/2024 8:57 PM EST FASTING:NO Thu Kwan PA-C LAB - BLOOD DRAW Final Resul t Performing Organization Address [facility] Co de Phone Number [employer] [address] [address], [employer] [address] [phone] * C TRACHOMATIS/N GONORRHOEAE RNA,TMA (03/20/2024 2:05 PM EST) CHLAMYDIA TRACHOMATIS RNA, TMA NOT DETECTED NOT DETECTED [employer] [facility] NEISSERIA GONORRHOEAE RNA, TMA NOT DETECTED NOT DETECTED [employer] [facility] COMMENT [employer] [facility] Urine Urine specimen / Unknown 03/20/2024 2:05 PM EST 03/20/2024 2:05 PM EST Narrative [employer] [facility] - 03/21/2024 8:57 PM EST FASTING:NO The analytical performance characteristics of this assay, when used to test SurePath(TM) specimens have been determined by [employer]. The modifications have not been cleared or approved by the FDA. This assay has been validated pursuant to the CLIA regulations and is used for clinical purposes. For additional information, please refer to https://education.Dujour App/faq/FFS244 (This link is being provided for information/ educational purposes only.) Thu Kwan PA-C LAB - NO BLOOD DRAW Edited R esult - Final Performing Organization Address City/[facility] Co de Phone Number [employer] [address] [address], [employer] [address] [address] * TSH W/RFLX FREE T4 (03/20/2024 2:05 PM EST) TSH W/REFLEX TO FT4 2.16 0.40 - 4.50 mIU/L [employer] [facility] Blood Blood / Unknown 03/20/2024 2 :05 PM EST 03/20/2024 2:05 PM EST Narrative [employer] [facility] - 03/21/2024 8:57 PM EST FASTING:NO Thu Kwan PA-C LAB - BLOOD DRAW Edited Resu lt - Final Performing Organization Address [facility]/ZIP Co de Phone Number [employer] [address] [address], [employer] [address] [address] * HEPATITIS B SURFACE AG, EIA WITH REFLEX CONFIRM (03/20/2024 2:05 PM EST) HEPATITIS B SURFACE ANTIGEN NON-REACT SEFERINO NON-REACT SEFERINO [employer] [facility] COMMENT [facility] Blood Blood / Unknown 03/20/2024 2 :05 PM EST 03/20/2024 2:05 PM EST Narrative [facility] [employer] [facility] - 03/21/2024 8:57 PM EST FASTING:NO For additional information, please refer to http://education.Dujour App/faq/ELZ151 (This link is being provided for informational/ educational purposes only.) Thu Kwan PA-C LAB - BLOOD DRAW Edited Resu lt - Final Performing Organization Address [facility]/ZIP Co de Phone Number [employer] [address] [address], [employer] [address] [address] * (ABNORMAL) LYME DISEASE, IGG/IGM AB, WESTERN BLOT (03/20/2024 2:05 PM EST) LYME DISEASE AB (IGG) WB NEGATIVE NEGATIVE [facility] 18 KD (IGG) BAND NON-REACTIVE [facility] 23 KD (IGG) BAND NON-REACTIVE [facility] 28 KD (IGG) BAND NON-REACTIVE [facility] 30 KD (IGG) BAND NON-REACTIVE [facility] 39 KD (IGG) BAND NON-REACTIVE [facility] 41 KD (IGG) BAND REACTIVE(A) [facility] 45 KD (IGG) BAND NON-REACTIVE [facility] 58 KD (IGG) BAND NON-REACTIVE [facility] 66 KD (IGG) BAND NON-REACTIVE [facility] 93 KD (IGG) BAND NON-REACTIVE [facility] LYME DISEASE AB (IGM) WB NEGATIVE NEGATIVE [employer] [facility] 23 KD (IGM) BAND NON-REACTIVE [employer] [facility] 39 KD (IGM) BAND NON-REACTIVE [employer] [facility] 41 KD (IGM) BAND NON-REACTIVE [employer] [facility] COMMENT [employer] [facility] Blood Blood / Unknown 03/20/2024 2 :05 PM EST 03/20/2024 2:05 PM EST Narrative [employer] [facility] - 03/21/2024 8:57 PM EST FASTING:NO Lyme immunoblot testing should only be performed on samples from patients who have had a Positive or Equivocal result in a screening assay. ?? As per CDC criteria, a Lyme disease IgG Immunoblot must show reactivity to at least 5 of 10 specific borrelial proteins to be considered positive; similarly, a positive Lyme disease IgM immunoblot requires reactivity to 2 of 3 specific borrelial proteins. Although considered negative, IgG reactivity to fewer specific borrelial proteins or IgM reactivity to only 1 protein may indicate recent B. burgdorferi infection and warrant testing of a later sample. A positive IgM but negative IgG result obtained more than a month after onset of symptoms likely represents a false- positive IgM result rather than acute Lyme disease. In rare instances, Lyme disease immunoblot reactivity may represent antibodies induced by exposure to other spirochetes. Thu Kwan PA-C LAB - BLOOD DRAW Final Resul t [employer] [address] [address], [employer] [address] [address] * BLOOD COUNT COMPLETE AUTO&AUTO DIFRNTL WBC (03/20/2024 2:05 PM EST) WHITE BLOOD CELL COUNT 10.1 3.8 - 10.8 Thousand/ uL [employer] [facility] RED BLOOD CELL COUNT 4.23 3.80 - 5.10 Million/u L [employer] [facility] HEMOGLOBIN 12.9 11.7 - 15.5 g/dL [employer] [facility] HEMATOCRIT 39.6 35.0 - 45.0 % [employer] [facility] MCV 93.6 80.0 - 100.0 fL [employer] [facility] MCH 30.5 27.0 - 33.0 pg [employer] [facility] MCHC 32.6 32.0 - 36.0 g/dL [employer] Comment: For adults, a slight decrease in the calculated MCHC value (in the range of 30 to 32 g/dL) is most likely not clinically significant; however, it should be interpreted with caution in correlation with other red cell parameters and the patient's clinical condition. RDW 13.6 11.0 - 15.0 % [employer] PLATELET COUNT 207 140 - 400 Thousand/ uL [employer] MPV 12.5 7.5 - 12.5 fL [employer] ABSOLUTE NEUTROPHILS 7,575 1,500 - 7,800 cells/uL [employer] ABSOLUTE LYMPHOCYTES 2,050 850 - 3,900 cells/uL [employer] ABSOLUTE MONOCYTES 303 200 - 950 cells/uL [employer] ABSOLUTE EOSINOPHILS 121 15 - 500 cells/uL [employer] ABSOLUTE BASOPHILS 51 0 - 200 cells/uL [employer] NEUTROPHILS PCT 75 % [facility] [employer] LYMPHOCYTES 20.3 % [facility] [employer] [facility] MONOCYTES 3.0 % [employer] [facility] [employer] [facility] EOSINOPHILS 1.2 % [facility] [employer] [employer] [facility] BASOPHILS 0.5 % [facility] [employer] [facility] Blood Blood / Unknown 03/20/2024 2 :05 PM EST 03/20/2024 2:05 PM EST Narrative [employer] - 03/21/2024 8:57 PM EST FASTING:NO Thu Kwan PA-C LAB - BLOOD DRAW Edited Resu lt - Final [employer] [address] [address], [employer] [address] [place] [address] * COMPREHENSIVE METABOLIC PANEL (03/20/2024 2:05 PM EST) GLUCOSE 91 65 - 139 mg/dL [employer] [facility] Comment: ?Non-fasting reference interval UREA NITROGEN (BUN) 16 7 - 25 mg/dL [employer] CREATININE (blood) 0.66 0.50 - 1.05 mg/dL [employer] EGFR 98 > OR = 60 mL/min/1. 73m2 [employer] BUN/CREATININE RATIO SEE NOTE: [employer] [facility] Comment: ?? Not Reported: BUN and Creatinine are within ?? reference range. ? SODIUM 138 135 - 146 mmol/L [employer] [facility] POTASSIUM 4.8 3.5 - 5.3 mmol/L [employer] [facility] CHLORIDE 102 98 - 110 mmol/L [employer] [facility] CARBON DIOXIDE 29 20 - 32 mmol/L [employer] [facility] CALCIUM 9.4 8.6 - 10.4 mg/dL [employer] [facility] PROTEIN, TOTAL 7.4 6.1 - 8.1 g/dL [employer] [facility] ALBUMIN 4.4 3.6 - 5.1 g/dL [employer] [facility] GLOBULIN 3.0 1.9 - 3.7 g/dL (calc) [employer] [facility] ALBUMIN/GLOBULI N RATIO 1.5 1.0 - 2.5 (calc) [employer] [facility] BILIRUBIN, TOTAL 0.3 0.2 - 1.2 mg/dL [employer] [facility] ALKALINE PHOSPHATASE 129 37 - 153 U/L [employer] [facility] AST 15 10 - 35 U/L [employer] [facility] ALT 15 6 - 29 U/L [employer] [facility] Blood Blood / Unknown 03/20/2024 2 :05 PM EST 03/20/2024 2:05 PM EST Narrative [employer] [facility] - 03/21/2024 8:57 PM EST FASTING:NO Thu Kwan PA-C LAB - BLOOD DRAW Edited Resu lt - Final [employer] [address] [address], [employer] [address] [address] * REFERRAL SCANNED DOCUMENT (03/16/2024 3:00 AM EST) 03/16/2024 3:00 AM EST us Thu Kwan PA-C SCAN REFERRAL Final Result * (ABNORMAL) LIPID PANEL (11/29/2023 3:05 PM EDT) CHOLESTEROL, TOTAL 271(H) <200 mg/dL [employer] HDL CHOLESTEROL 31(L) > OR = 50 mg/dL [employer] TRIGLYCERIDES 297(H) <150 mg/dL [employer] Comment: If a non-fasting specimen was collected, consider repeat triglyceride testing on a fasting specimen if clinically indicated. Chandrika. J. of Clin. Lipidol. 2015;9:129-169. LDL-CHOLESTEROL 190(H) 99 mg/dL (calc) [employer] Comment: LDL-C levels > or = 190 mg/dL may indicate familial hypercholesterolemia (FH). Clinical assessment and measurement of blood lipid levels should be considered for all first degree relatives of patients with an FH diagnosis. LDL Cholesterol (LDL-C) levels > or = 300 mg/dL may indicate homozygous familial hypercholesterolemia (HoFH). Untreated, these extremely high LDL-C levels can result in premature CV events and mortality. Patients should be identified early and provided appropriate interventions to reduce the cumulative LDL-C burden from . For questions about testing for familial hypercholesterolemia, please call [employer] at [email or web address]. Jaylyn Cummings, et al. J National Lipid Association Recommendations for Patient-Centered Management of Dyslipidemia: Part 1 Journal of Clinical Lipidology 2015;9(2), 129-169. Yahir Sevilla. et al. (2014). Homozygous familial hypercholesterolaemia: new insights and guidance for clinicians to improve detection and clinical management. Heart Journal, 35(32), 1907-8945. Reference range: <100 Desirable range <100 mg/dL for primary prevention; ?? <70 mg/dL for patients with CHD or diabetic patients with > or = 2 CHD risk factors. LDL-C is now calculated using the Shon-Sumaya calculation, which is a validated novel method providing better accuracy than the Friedewald equation in the estimation of LDL-C. Shon BOTELLO et al. MARISSA. 2013;310(19): 7699-5051 (http://education.Apruve/faq/YDY534) CHOL/HDLC RATIO 8.7(H) <5.0 (calc) [employer] NON-HDL CHOLESTEROL 240(H) <130 mg/dL (calc) [employer] Comment: Non-HDL level > or = 220 is very high and may indicate genetic familial hypercholesterolemia (FH). Clinical assessment and measurement of blood lipid levels should be considered for all first-degree relatives of patients with an FH diagnosis. For patients with diabetes plus 1 major ASCVD risk factor, treating to a non-HDL-C goal of <100 mg/dL (LDL-C of <70 mg/dL) is considered a therapeutic option. Blood Blood / Unknown 11/29/2023 3 :05 PM EDT 11/29/2023 3:06 PM EDT Thu Kwan PA-C LAB - BLOOD DRAW Final Resul t Performing Organization Address [facility]/ZIP Co de Phone Number [employer] [address] [address], [employer] [address] [address] * (ABNORMAL) PAP SMEAR W/HPV (03/20/2020) PAP SMEAR INTERPRETATION ABNORMAL(A) NORMAL [facility] HPV (HUMAN PAPILLOMA) POSITIVE(A) NEGATIVE [facility] HPV TYPE 16 POSITIVE NEGATIVE [facility] HPV TYPE 18 POSITIVE NEGATIVE [facility] Swab 03/20/2020 Impressions [facility] - 03/27/2020 1:18 PM EST ASCUS, high risk HPV positive Provider [place] LAB - NO BLOOD DRAW Final Result Performing Organization Address City/[facility] Co de Phone Number [facility] [address] [place] [address], * COLPOSCOPY, ABSTRACTED (11/24/2018) 11/24/2018 [facility] - 12/27/2018 10:54 AM EST Polyp (3mm to 5 mm) ??In the ascending colon. (polypectomy). Polyp (5mm) in the transverse colon, (Polypectomy). Polyps (5mm) in the rectum. (Polypectomy). Diverticulitis of the descending colon. Internal and external hemorrhoids. Colon otherwise normal to the terminal ileum including retroflexion. us Provider [place] PROCEDURES Final Result [facility] [address] [place] [address], * (ABNORMAL) URINE DRUG SCREEN (05/02/2017 11:40 AM EDT) BENZODIAZEPINE, URINE NONE DETECTED ND [facility] Comment: Assay cutoff 200 ng/mL Semi-quantitative assay for screening purposes only. Unconfirmed screening result should not be used for non-medical purposes. *ALTERNATE METHOD CONFIRMATION DONE UPON REQUEST ONLY* COCAINE, URINE POSITIVE(A) ND [facility] Comment: Assay cutoff 300 ng/mL Semi-quantitative assay for screening purposes only. Unconfirmed screening result should not be used for non-medical purposes. *ALTERNATE METHOD CONFIRMATION DONE UPON REQUEST ONLY* AMPHETAMINE, URINE NONE DETECTED ND [facility] Comment: Assay cutoff 1000 ng/mL Semi-quantitative assay for screening purposes only. Unconfirmed screening result should not be used for non-medical purposes. *ALTERNATE METHOD CONFIRMATION DONE UPON REQUEST ONLY* MARIJUANA (THC), URINE NONE DETECTED ND [facility] Comment: Assay cutoff 50 ng/mL Semi-quantitative assay for screening purposes only. Unconfirmed screening result should not be used for non-medical purposes. *ALTERNATE METHOD CONFIRMATION DONE UPON REQUEST ONLY* OPIATES, URINE NONE DETECTED ND [facility] Comment: Assay cutoff 300 ng/mL Semi-quantitative assay for screening purposes only. Unconfirmed screening result should not be used for non-medical purposes. *ALTERNATE METHOD CONFIRMATION DONE UPON REQUEST ONLY* BARBITURATES, URINE NONE DETECTED ND [facility] Comment: Assay cutoff 200 ng/mL Semi-quantitative assay for screening purposes only. Unconfirmed screening result should not be used for non-medical purposes. *ALTERNATE METHOD CONFIRMATION DONE UPON REQUEST ONLY* Urine specimen (specimen) Urine specimen / Unknown 05/02/2017 11:40 AM EDT 05/02/2017 12:13 PM EDT Narrative [facility] - 05/02/2017 4:35 PM EDT [employer] [address] [place] [address] PT ID [id number] ORD# [id number] us Thu Kwan PA-C LAB - NO BLOOD DRAW Final Re sult [facility] [address] [place] [address], from Last 3 Months or Most Recently Relevant to Health Maintenance Insurance [facility] [employer] Care Teams Cribber Relationship Specialty Start Date End Date Thu Kwan PA-C [address] [place] [phone] PCP - General Internal Medicine 04/30/20
== END 2024-04-25 14:39 | disposition home or self-care (01) ==
LOC: HO.CT 14:38
PROVIDERS: PCP Physician Assistant; Visit Provider Hospitalist
DX: J84.9 Interstitial pulmonary disease, unspecified (principal); R91.8 Other nonspecific abnormal finding of lung field
CPT/HCPCS: 71250

== ENCOUNTER → 2024-04-25 14:40 | Outpatient (BNV) | payer MEDICAID, SELFPAY | PROVIDERS: PCP Physician Assistant; Visit Provider Radiology Diagnostic Radiology | DX: J84.9 Interstitial pulmonary disease, unspecified (principal) | CPT/HCPCS: 71250 ==

== ENCOUNTER 2024-04-26 09:44 | Outpatient (AMB) | payer MEDICAID, SELFPAY ==
--- NOTE | 2024-04-26 10:06 | A.OFFVIS_ITS ---
Vital Signs 04/26/24 10:07 Height 5 ft 1 in Weight 166 lb 7.184 oz BMI 31.4 BP 136/82 Blood Pressure Location Rt brachial Position Sitting Pulse 61 Pulse Source Pulse Oximeter Pulse Oximetry (%) 99 Oxygen Delivery Method Room Air Intake Visit Reasons: Asthma Allergies No Known Allergies [No Known Allergies*] Allergy (Unverified 04/26/24 10:11) HPI Comments Details: The patient is a 64 year-old woman with a long history of tobacco dependency and COPD who apparently has been complaining of worsening dyspnea on exertion and cough. The patient states that recently she did undergo a CT scan of the chest as per the lung cancer screening program because she does have pulmonary nodules. She did follow-up with her primary care doctor who told her that if there were other changes suggesting of interstitial lung disease on the CT scan. Therefore she was referred to Pulmonary. On further questioning the site smok ing she denies any other recreational drugs. She denies being exposed to any farm work or birds. The patient denies any mold in the house. She has tried to quit smoking but has been very hard for her. The patient is willing to try the Nicotrol inhaler to see if we can get her away from the smoke That is resulting in moles of the injury to her lungs In airways. I was able to personally review the CAT scans from 2018 and also 2020 with the patient. Back in 2018 she also had interstitial changes primarily in the periphery of her lungs bilaterally with some evidence of honeycombing in the periphery which is concerning. It appears to be also involving the bases but not as predominant. Does have a subtle appearance of usual interstitial pneumonia (UIP) versus a chronic eosinophilic pneumonia. The patient denies any rashes or any joint discomfort to suggest a connective tissue disease. However, this needs to be continued in the differential. I did also review her CT scan from 2020 demonstrating some interval progression of the subpleural process suggesting a progressive type of interstitial lung disease. Smoking can also result in pulmonary fibrosis the patient is aware that and she is motivated to quitting. She has minimal evidence of emphysema also noted. 01/22/2021 the patient is here for a pulmonary follow-up visit. Overall she is doing well from a respiratory status. She denies any worsening shortness of breath or any chest discomfort. She did undergo blood work recently we did reviewed. Her evaluation for interstitial lung disease was negative for any connective tissue conditions to hypersensitivity conditions. The patient also underwent pulmonary function studies demonstrating no obstructive nor restrictive ventilatory defects. Although, her total lung capacity was low normal. She however had a moderate diffusion impairment. Explained to the patient that will be need to continue monitoring closely for any progression. She is to call if any worsening respiratory symptoms arise. She is due for repeat CT scan of the chest based on the lung cancer screening program and July of 2021. as far as other potential triggers we did talk about reflux disease which she has. The patient will work on her reflux diet and will try to sleep elevated. In regards of her asthma the patient did have 1 episode where she woke up short of breath and chest tightness. She did get relief with her rescue inhaler. I do think that based on her symptoms is reasonable to start her on a maintenance inhaler. 08/18/2021 the patient is here for a pulmonary follow-up visit. Overall the patient continues to have shortness of breath and cough. Her symptoms have been getting worse but primarily because she ran out of her medication. Will make sure that she has all her medications available to avoid any rebound symptoms. In the meantime she has not heard from [facility] regarding her lung cancer screening program CT scan. We did review her CT scan that she had back in July 2020 with small pulmonary nodules but more concerning was a degree of interstitial lung disease as she has bilaterally in the periphery more in the mid lung area. Next week consistent with an UIP pattern IPF. But, still concerning. The patient did have a connective tissue disease workup in addition to hypersensitivity pneumonitis panel and workup was completely nega tive. Explained to the patient that smoking related interstitial lung conditions are indeed in differential. Therefore we need to work cardiac getting her to quit altogether. The patient also understands that if her interstitial lung disease worsens she may need to undergo a biopsy to further delineate the etiology. In the meantime the patient will be traveling abroad with family. She will work on her smoking cessation and hoping that she can quit we can repeat her CT scan in October to see if we see any improvement. 07/23/2022 the patient is here for a pulmonary follow-up visit. She continues to have dyspnea on exertion. Mild to moderate severity. Does get better with rest. She still struggling with her smoking. She understands that with her underlying interstitial lung disease it is likely the smoking will continue to make it worse. We did review her CT scan of the chest that she had in October 2021 again demonstrating the reticular changes consistent with pulmonary fi brosis primarily at the bases. This appears to be not UIP pattern. In addition to that though she does have some evidence of ground-glass opacities in the upper lung zones. The patient was supposed to start Wellbutrin but she never got at the pharmacy. However, she is still smoking and likely more. 10/26/2022 the patient is here for a pulmonary follow-up visit. She recently returned from [place]. While she was there she developed significant episode of respiratory distress. she was evaluated and treated. She is feeling better but not at her baseline. She is also complaining of back discomfort. Also is pleuritic in nature. Moderate severity. The patient unfortunately continues to smoke cigarettes. She understands that were pulmonary fibrosis and interstitial lung disease smoking is extremely harmful for her. Therefore, will go ahead and start her on Chantix. We did talk about the risks and benefits of the medication. She knows to monitor for depression. When she completes the starter pack she will call and I will send a regular maintenance dose. In the meantime her last CT scan last year October 2021 demonstrated significant pulmonary fibrosis very suggestive of UIP like pattern. Unfortunately this could be progressive disease. If indeed she does have probable UIP demonstrating any better progressive component of worsening lung capacity will consider antifibrotic agents for her. She will continue with the current respiratory therapy. On examination she also has some wheezing from her recent exacerbation therefore will put on small dose of prednisone to see if this provides her some relief. 12/10/2022 the patient is here for a pulmonary follow-up visit. Overall the patient has been doing better from the asthma standpoint. Denies any signifi cant wheezing. She is working her smoking. She said hard time with. The patient does have dyspnea on exertion. Typically mild severity. We did review her recent CT scan of the chest. Personally by me. It appears that her interstitial lung disease has not significantly changed from October 2021 which is reassuring. No need for antifibrotic agents at this time. Based on the fact that she is feeling better will hold off on the PFTs. Will have her come back in 6 months and at that point to the pulmonary function studies to see if there is any progressive disease. She does have evidence of pulmonary fibrosis and at this point without a clear etiology. If indeed we see any progression we would need to consider the possibility of IPF and would at that point start antifibrotic agents. She will continue with current respiratory therapy at this time. Will follow-up in 6 months after her PFTs. 08/09/2023 the patient is here for a pulmonary follow-up visit. The patient unfortunately continues to smoke cigarettes. She has been struggling. She did not try the Chantix. She has been on the Wellbutrin however. The patient did not have her PFTs done. We again looked at her CT scan demonstrating worsening interstitial lung disease suggesting of a UIP pattern. This could be concerning. Will go ahead and repeat her CT scan sometime in the fall of 2023. Will give her enough time to quit smoking. I did send her the nicotine patch and she can not have the breakthrough nicotine gum. The patient also will continue her respiratory medications. She has responded well to the azithromycin 3 times a week for chronic bronchitis will continue that for now. She did not have her PFTs will have those done closer to her next appointment. If she has any worsening symptoms she will call for an earlier assessment. 12/15/2023 the patient is here for pulmonary sick visit. She started developing worsening respiratory symptoms the last couple days. Chest congestion. Moderate severity. Phlegm is yellow. Also having some chest tightness and some wheezing. She has been using her inhalers. She does have a nebulizer better solution is old. On exam she does have wheezing and rhonchi throughout. The patient is actively coughing. Will go ahead and treat her for bout of bronchitis and an asthma exacerbation. She did have a CT scan of the chest over the summer. Been officially read yet. I did review it. The interstitial changes appear to be stable. Will await the final report. The patient will return in 4 6 months. If she has any worsening symptoms she can call for an earlier assessment. 04/26/2024 the patient is here for a pulmonary follow-up visit. The patient is complaining of some difficulty breathing and also pleuritic chest pain primarily the left side. Denies any wheezing denies any congested cough. We did again review her CT scan that she had back in over the summer demonstrating the interstitial lung disease primarily in the periphery. Likely that she is developing some degree of pleuritis. Her blood work was all negative but that was back in 2020. Will go ahead and repeat blood work specially with her arthralgias and myalgias. I wonder if she has a connective tissue disease related interstitial lung disease. For now will go ahead and started him small dose of prednisone to see if we can get some relief her symptoms. We did review her recent CT chest 04/25/2024 personally reviewed by me, demonstrating stable periphereal interatitial disease with areas of honeycombing. Will go ahead and repeat all the blood work and just see if we can find a secondary cause. She may be a good candidate for often see worsening disease. We did talk about potential biopsy. In the meantime, the cigarette smoking is a potential risk factors for the ILD. She is willing to try Chantix at this time. Based on her stability of the ILD, no need for OFEV at this time. [facility] Medical History (Updated 03/16/24 @ 22:21 by Coleman Freitas MD) Pleuritic chest pain COPD (chronic obstructive pulmonary disease) Asthma Pulmonary nodules Tobacco dependence ILD (interstitial lung disease) Social History (Updated 04/26/24 @ 10:10 by Apryl Torres CMA) Patient Tobacco Use Status: Current everyday Tobacco user Tobacco use type: Cigarette Cigarettes Per Day: 2 Years Smoked: Since 14 years old Review of Systems Const Denies night sweats ENT Denies change in voice, Denies lip swelling, Denies mouth pain, Reports nasal congestion, Reports nasal discharge and Denies tongue swelling Card Reports chest pain and Reports dyspnea on exertion Resp Reports chest congestion, Reports cough, Reports pain on inspiration, Reports pain with cough and Reports dyspnea on exertion GI Reports dyspepsia and Reports heartburn Musc Reports back pain and Reports myalgias Neuro Denies Neuro-related abnormal movements Psych Denies no additional complaints Hilton/Lymph Denies easy bleeding and Denies lymphadenopathy Aller/Immun Denies lip swelling and Denies tongue swelling Physical Exam Vital Signs: Last Vital Signs Pulse 61 04/26/24 10:07 BP 136/82 04/26/24 10:07 Pulse Ox 99 04/26/24 10:07 Oxygen Delivery Method Room Air 04/26/24 10:07 BMI result Body Mass Index 31.4 Const General: alert HEENT General nose exam: Abnormal external nose present and Nasal discharge present Eyes Pupils: Equal, round and reactive pupils present Neck Neck: Yes normal visual inspection, Yes full ROM and Yes no lymphadenopathy Chest Chest palpation & inspection: normal inspection of the chest Resp Auscultation: rales, no wheezes and diminished lung sounds Cardio Rate: regular rate Rhythm: regular rhythm Heart sounds: S1 normal heart sound present and S2 normal heart sound present GI Palpation (GI): Soft to palpation and nontender Auscultation: normal bowel sounds General: Yes no CVA tenderness Back/Spine/Pelvis Back: no CVA tenderness Skin General skin exam: rashes and/or lesions noted Neuro Cranial nerves: Yes Equal, round and reactive pupils present Quality Reporting (2019) Adult ([facility] 13804/14/68) Smoking risk assessment performed?: Yes Patient Tobacco Use Status: Current everyday Tobacco user Assessment & Plan Assessment & Plan (1) COPD (chronic obstructive pulmonary disease): Code(s): J44.9 - Chronic obstructive pulmonary disease, unspecified Category: Medical Qualifiers: COPD type: COPD with acute lower respiratory infection Qualified Code(s): J44.0 - Chronic obstructive pulmonary disease with (acute) lower respiratory infection (2) ILD (interstitial lung disease): Code(s): J84.9 - Interstitial pulmonary disease, unspecified Category: Medical (3) Tobacco dependence: Code(s): F17.200 - Nicotine dependence, unspecified, uncomplicated Category: Medical (4) Pulmonary nodules: Code(s): R91.8 - Other nonspecific abnormal finding of lung field Category: Medical (5) Pleuritic chest pain: Code(s): R07.81 - Pleurodynia Category: Medical Plan start prednisone taper nebulizer 2 times a day continue Symbicort BRIONNA as needed bloodwork Tobacco cessation: start Chantix No OFEV at this time Reflux diet F/U 4-6 months Orders: Orders Complete Blood Count Auto Diff Today F17.200 - Nicotine dependence, unspecified, uncomplicated, J84.9 - Interstitial pulmonary disease, unspecified, R07.81 - Pleurodynia Basic Metabolic Panel Today F17.200 - Nicotine dependence, unspecified, uncomplicated, J84.9 - Interstitial pulmonary disease, unspecified, R07.81 - Pleurodynia YOANA Reflex Titer and Pattern Today F17.200 - Nicotine dependence, unspecified, uncomplicated, J84.9 - Interstitial pulmonary disease, unspecified, R07.81 - Pleurodynia Angiotensin Converting Enzyme Today F17.200 - Nicotine dependence, unspecified, uncomplicated, J84.9 - Interstitial pulmonary disease, unspecified, R07.81 - Pleurodynia Erythrocyte Sedimentation Rate Today F17.200 - Nicotine dependence, unspecified, uncomplicated, J84.9 - Interstitial pulmonary disease, unspecified, R07.81 - Pleurodynia Hypersensitive Pneumonitis Prf Today F17.200 - Nicotine dependence, unspecified, uncomplicated, J84.9 - Interstitial pulmonary disease, unspecified, R07.81 - Pleurodynia, R91.8 - Other nonspecific abnormal finding of lung field Scleroderma 70 Antibody Today F17.200 - Nicotine dependence, unspecified, uncomplicated, J84.9 - Interstitial pulmonary disease, unspecified, R07.81 - Pleurodynia Sjogren's Antibodies Today F17.200 - Nicotine dependence, unspecified, uncomplicated, J84.9 - Interstitial pulmonary disease, unspecified, R07.81 - Pleurodynia Medications: New varenicline tartrate (Chantix Starting Month Box) PO PER PKG DIR 42 ea 0RF prednisone PO daily; Take 2 tabs x 5 days, then 1 tab x 5 days 15 tabs 0RF 10 days Changed From albuterol sulfate 90 mcg/actuation (ProAir HFA) 2 puffs inhalation Q6H PRN 8.5 grams 11RF shortness of breath or wheezing To albuterol sulfate 90 mcg/actuation 2 puffs inhalation Q6H PRN 8.5 grams 11RF shortness of breath or wheezing Refilled Symbicort 160-4.5 mcg/actuation (budesonide-formoterol) 2 puffs inhalation BID 10.2 grams 11RF 30 days NS J44.9 - Chronic obstructive pulmonary disease, unspecified Coding Level of Care Code Tele New Pt Level 4 (39148) Diagnoses Chronic obstructive pulmonary disease with acute lower respiratory infection J44.0 COPD type: COPD with acute lower respiratory infection ILD (interstitial lung disease) J84.9 Tobacco dependence F17.200 Pulmonary nodules R91.8 Pleuritic chest pain R07.81 Time Spent (min) 18
[2024-04-26 10:07] VITALS: BP 136/82; PULSE 61; O2SAT 99; BMI 31.4
--- OUTSIDE RECORDS SUMMARY | 2024-04-26 11:08 | XMS_ITS | Patient Health Record ---
Author Organization [facility] Address [address], [place] [id number] Care Team Providers Care Telecommunications Network Engineer Name Role Phone [facility] Primary Care Provi isaias Unavailable Jose C Acosta Unavailable [phone] Reason For Referral No Information Plan Of Treatment No Information Insurance Providers Payer Name Payer Address Payer Phone Subscriber Number Group Number Insured Name Patient Relationship to Insured Coverage Start Date Coverage End Date MD Medicare Part A [employer] [address] [place] [address] [id number] Carol Alcaraz Self - patient is the insured
--- OUTSIDE RECORDS SUMMARY | 2024-04-26 11:08 | XMS_ITS | Encounter Summary ---
Author Organization [facility] Address [address] [place] [address] Care Team Providers Care Passport Support Manager Name Role Phone Thu Clark Primary Care Provider [phone] Reason for Visit * Reason Comments Abdominal Pain Reports abdominal pa in since last night Encounter Details Date Type Department Care Team (Late st Contact Info) Description 04/07/2024 12:23 PM EST - 04/07/2024 5:14 PM EST Emergency [facility] Emergency [address] [place] [address] Luis Eduardo Khoury MD [address] [facility] [address] [place] [address] Other acute gastritis without hemorrhage (Primary Dx) [...] be sent through Care Everywhere. * Gastritis (Hong Konger) documented in this encounter Medications at Time [...] Procedure Abnormality Status --------- ------ CBC auto differential[[id number]] Abnormal Final result Please view results for [...] Signed Date: 04/07/2024 16:01 ET Workstation ID: [id number] Transcribed By: Self Edit Transcribed Date: 04/07/2024 15:59 ET Narrative 04/07/2024 4:01 PM EST Exam: US ABDOMEN LIMITED Date of Study: 04/07/2024 3:35 PM CLINICAL INFORMATION: Eval for gallbladder disease TECHNIQUE: Real-time ultrasound scanning of the region of interest performed by the engine tester. Pediatric Clinical Nurse Specialist static images and video clips are submitted [...] of the region of interestperformed by the engine tester. Pediatric Clinical Nurse Specialist static images and video clipsare submitted for [...] Signed Date: 04/07/2024 16:01 ET Workstation ID: [id number] Transcribed By: Self Edit Transcribed Date: 04/07/2024 15:59 ET us Weston BARNETT IMG US PROCEDURES Final Resu lt * (ABNORMAL) CBC auto differential (04/07/2024 11:40 AM EST) [facility] WBC 8.3 4.8 - 10.8 K/mcL LAB HEMETOLOGY METHOD 04/07/2024 12:01 PM [facility] RBC 3.90 3.80 - 4.80 M/mcL LAB HEMETOLOGY METHOD 04/07/2024 12:01 PM [facility] Hemoglobin 11.9 11.5 - 16.0 g/dL LAB HEMETOLOGY METHOD 04/07/2024 12:01 PM [facility] Hematocrit 37.4 35.0 - 47.0 % LAB HEMETOLOGY METHOD 04/07/2024 12:01 PM [facility] MCV 96.4 79.0 - 98.0 FL LAB HEMETOLOGY METHOD 04/07/2024 12:01 PM [facility] MCH 30.7 27.0 - 32.0 pcg LAB HEMETOLOGY METHOD 04/07/2024 12:01 PM [facility] MCHC 31.8(L) 32.0 - 37.0 g/dL LAB HEMETOLOGY METHOD 04/07/2024 12:01 PM [facility] RDW 15.0 11.0 - 15.0 % LAB HEMETOLOGY METHOD 04/07/2024 12:01 PM [facility] Platelets 193 130 - 400 K/mcL LAB HEMETOLOGY METHOD 04/07/2024 12:01 PM [facility] MPV 11.1(H) 7.0 - 11.0 FL LAB HEMETOLOGY METHOD 04/07/2024 12:01 PM [facility] NRBC 0.0 <1.0 % LAB HEMETOLOGY METHOD 04/07/2024 12:01 PM [facility] NRBC Absolute 0.00 <0.10 K/mcL LAB HEMETOLOGY METHOD 04/07/2024 12:01 PM [facility] Neutrophils Relative 47.9 % LAB HEMETOLOGY METHOD 04/07/2024 12:01 PM [facility] Lymphocytes Relative 42.6 % LAB HEMETOLOGY METHOD 04/07/2024 12:01 PM [facility] Monocytes Relative 5.5 % LAB HEMETOLOGY METHOD 04/07/2024 12:01 PM [facility] Eosinophils Relative 3.3 % LAB HEMETOLOGY METHOD 04/07/2024 12:01 PM [facility] Basophils Relative 0.6 % LAB HEMETOLOGY METHOD 04/07/2024 12:01 PM [facility] Immature Granulocytes Relative 0.1 % LAB HEMETOLOGY METHOD 04/07/2024 12:01 PM [facility] Neutrophils Absolute 3.97 1.50 - 7.00 K/mcL LAB HEMETOLOGY METHOD 04/07/2024 12:01 PM [facility] Lymphocytes Absolute 3.53 1.00 - 5.00 K/mcL LAB HEMETOLOGY METHOD 04/07/2024 12:01 PM [facility] Monocytes Absolute 0.46 0.20 - 1.00 K/mcL LAB HEMETOLOGY METHOD 04/07/2024 12:01 PM [facility] Eosinophils Absolute 0.27 0.00 - 0.50 K/mcL LAB HEMETOLOGY METHOD 04/07/2024 12:01 PM [facility] Basophils Absolute 0.05 0.00 - 0.20 K/mcL LAB HEMETOLOGY METHOD 04/07/2024 12:01 PM [facility] Immature Granulocytes Absolute 0.01 0.00 - 0.03 K/mcL LAB HEMETOLOGY METHOD 04/07/2024 12:01 PM EST [facility] Blood Venous blood specimen / Unknown Venipuncture / Unknown 04/07/2024 11:40 AM EST 04/07/2024 11:53 AM EST Luis Eduardo Khoury MD LAB BLOOD ORDERABLES Final Result Performing Organization Address City/[facility]/ZIP Co de Phone Number [facility] [address] [place] [address], [place] [phone] * Lipase (04/07/2024 11:40 AM EST) Lipase 39 13 - 75 unit/L LAB CHEMISTRY METHOD 04/07/2024 12:23 PM [facility] Blood Venous blood specimen / Unknown Venipuncture / Unknown 04/07/2024 11:40 AM EST 04/07/2024 11:53 AM EST Luis Eduardo Khoury MD LAB BLOOD ORDERABLES Final Result Performing Organization Address City/[facility]/ZIP Co de Phone Number [facility] [address] [place] [address], [place] [phone] * (ABNORMAL) Comprehensive metabolic panel (04/07/2024 11:40 AM EST) Sodium 138 133 - 145 mmol/L LAB CHEMISTRY METHOD 04/07/2024 12:25 PM [facility] Potassium 4.6 3.5 - 5.5 mmol/L LAB CHEMISTRY METHOD 04/07/2024 12:25 PM [facility] Chloride 106 96 - 110 mmol/L LAB CHEMISTRY METHOD 04/07/2024 12:25 PM [facility] CO2 30 21 - 32 mmol/L LAB CHEMISTRY METHOD 04/07/2024 12:25 PM [facility] Anion Gap 2(L) 3 - 11 LAB CHEMISTRY METHOD 04/07/2024 12:25 PM [facility] Glucose 97 70 - 100 mg/dL LAB CHEMISTRY METHOD 04/07/2024 12:25 PM [facility] BUN 9 5 - 25 mg/dL LAB CHEMISTRY METHOD 04/07/2024 12:25 PM [facility] Creatinine 0.66 0.50 - 1.10 mg/dL LAB CHEMISTRY METHOD 04/07/2024 12:25 PM [facility] eGFR 98 >=60 mL/min/1. 73m2 LAB CHEMISTRY METHOD 04/07/2024 12:25 PM [facility] Comment:Calculation based on the??Chronic Kidney Disease Epidemiology Collaboration (CKD-EPI) equation refit??without adjustment for race. BUN/Creatinine Ratio 13.6 LAB CHEMISTRY METHOD 04/07/2024 12:25 PM [facility] Calcium 9.2 8.5 - 10.5 mg/dL LAB CHEMISTRY METHOD 04/07/2024 12:25 PM [facility] AST (SGOT) 14 10 - 42 unit/L LAB CHEMISTRY METHOD 04/07/2024 12:25 PM [facility] ALT (SGPT) 22 10 - 60 unit/L LAB CHEMISTRY METHOD 04/07/2024 12:25 PM [facility] Alkaline Phosphatase 124(H) 42 - 121 unit/L LAB CHEMISTRY METHOD 04/07/2024 12:25 PM [facility] Total Protein 7.2 6.0 - 8.0 g/dL LAB CHEMISTRY METHOD 04/07/2024 12:25 PM [facility] Albumin 3.4 3.2 - 5.0 g/dL LAB CHEMISTRY METHOD 04/07/2024 12:25 PM [facility] Total Bilirubin 0.3 0.0 - 1.4 mg/dL LAB CHEMISTRY METHOD 04/07/2024 12:25 PM [facility] Blood Venous blood specimen / Unknown Venipuncture / Unknown 04/07/2024 11:40 AM EST 04/07/2024 11:53 AM EST us Luis Eduardo Khoury MD LAB BLOOD ORDERABLES Final Result [facility] [address] [place] [address], [place] [phone] documented in this encounter Visit Diagnoses Diagnosis [...] RN) documented in this encounter Care Teams Passport Support Manager Relationship Specialty Start Date End Date Thu Clark PA [facility] [place] [address] PCP - General Physician Solvent Process Extractor Operator 03/18/24 documented as of this encounter
--- OUTSIDE RECORDS SUMMARY | 2024-04-26 11:09 | XMS_ITS | Encounter Summary ---
Author Organization [facility] Address [address] [place] [address] Care Team Providers Care Supervisor Machining Name Role Phone Thu Clark PA-C Primary Care Provider [phone] Encounter Details Date Type Department Care Team ([facility] st Contact Info) Description 03/20/2020 Scan Pathology [facility] [address] [place] [phone] Thu Clark PA-C [address] [place] [phone] Social History Tobacco Use Types Packs/Day Years [...] documented as of this encounter Care Teams Supervisor Machining Relationship Specialty Start Date End Date Thu Clark PA-C [facility] [place] [address] PCP - General Internal Medicine 04/30/20 documented as of this encounter
--- OUTSIDE RECORDS SUMMARY | 2024-04-26 11:09 | XMS_ITS | Clinical Summary ---
Author Organization [facility] Address [address] [place] [address] Phone Care Team Providers Care Machine Stemmer Name Role Phone Thu Clark Primary Care Provider [phone] Allergies No known active allergies Medications ondansetron ODT (ZOFRAN-ODT) 4 mg disintegrating tablet Let 1 tablet dissolve under the tongue three times daily as needed for nausea or vomiting. 10 tablet 5 04/14/19 25 Encounters Date Type Department Care Team Description 04/07/2024 12:23 PM EST - 04/07/2024 5:14 PM [facility] Emergency [address] [place] [phone] Luis Eduardo Khoury MD Other acute gastritis without hemorrhage (Primary Dx) Discharge Disposition: Home or Self Care 03/18/2024 5:42 PM EST - 03/18/2024 6:41 PM [facility] Emergency [address] [place] [phone] Quirino Baez MD Cellulitis and abscess of [...] Signed Date: 04/07/2024 16:01 ET Workstation ID: [id number] Transcribed By: Self Edit Transcribed Date: 04/07/2024 15:59 ET Narrative 04/07/2024 4:01 PM EST Exam: US ABDOMEN LIMITED Date of Study: 04/07/2024 3:35 PM CLINICAL INFORMATION: Eval for gallbladder disease TECHNIQUE: Real-time ultrasound scanning of the region of interest performed by the water resource consultant. Summer Nanny static images and video clips are submitted [...] of the region of interestperformed by the water resource consultant. Summer Nanny static images and video clipsare submitted for [...] Signed Date: 04/07/2024 16:01 ET Workstation ID: [id number] Transcribed By: Self Edit Transcribed Date: 04/07/2024 15:59 ET us Weston BARNETT IMG US PROCEDURES Final Resu lt * (ABNORMAL) CBC auto differential (04/07/2024 11:40 AM EST) [facility] Signature WBC 8.3 4.8 - 10.8 K/mcL LAB HEMETOLOGY METHOD 04/07/2024 12:01 PM [facility] RBC 3.90 3.80 - 4.80 M/mcL LAB HEMETOLOGY METHOD 04/07/2024 12:01 PM [facility] Hemoglobin 11.9 11.5 - 16.0 g/dL LAB HEMETOLOGY METHOD 04/07/2024 12:01 PM [facility] Hematocrit 37.4 35.0 - 47.0 % LAB HEMETOLOGY METHOD 04/07/2024 12:01 PM [facility] MCV 96.4 79.0 - 98.0 FL LAB HEMETOLOGY METHOD 04/07/2024 12:01 PM [facility] MCH 30.7 27.0 - 32.0 pcg LAB HEMETOLOGY METHOD 04/07/2024 12:01 PM [facility] MCHC 31.8(L) 32.0 - 37.0 g/dL LAB HEMETOLOGY METHOD 04/07/2024 12:01 PM [facility] RDW 15.0 11.0 - 15.0 % LAB HEMETOLOGY METHOD 04/07/2024 12:01 PM [facility] Platelets 193 130 - 400 K/mcL LAB HEMETOLOGY METHOD 04/07/2024 12:01 PM [facility] MPV 11.1(H) 7.0 - 11.0 FL LAB HEMETOLOGY METHOD 04/07/2024 12:01 PM [facility] NRBC 0.0 <1.0 % LAB HEMETOLOGY METHOD 04/07/2024 12:01 PM [facility] NRBC Absolute 0.00 <0.10 K/mcL LAB HEMETOLOGY METHOD 04/07/2024 12:01 PM [facility] Neutrophils Relative 47.9 % LAB HEMETOLOGY METHOD 04/07/2024 12:01 PM [facility] Lymphocytes Relative 42.6 % LAB HEMETOLOGY METHOD 04/07/2024 12:01 PM [facility] Monocytes Relative 5.5 % LAB HEMETOLOGY METHOD 04/07/2024 12:01 PM [facility] Eosinophils Relative 3.3 % LAB HEMETOLOGY METHOD 04/07/2024 12:01 PM [facility] Basophils Relative 0.6 % LAB HEMETOLOGY METHOD 04/07/2024 12:01 PM [facility] Immature Granulocytes Relative 0.1 % LAB HEMETOLOGY METHOD 04/07/2024 12:01 PM [facility] Neutrophils Absolute 3.97 1.50 - 7.00 K/mcL LAB HEMETOLOGY METHOD 04/07/2024 12:01 PM [facility] Lymphocytes Absolute 3.53 1.00 - 5.00 K/mcL LAB HEMETOLOGY METHOD 04/07/2024 12:01 PM [facility] Monocytes Absolute 0.46 0.20 - 1.00 K/mcL LAB HEMETOLOGY METHOD 04/07/2024 12:01 PM [facility] Eosinophils Absolute 0.27 0.00 - 0.50 K/mcL LAB HEMETOLOGY METHOD 04/07/2024 12:01 PM [facility] Basophils Absolute 0.05 0.00 - 0.20 K/mcL LAB HEMETOLOGY METHOD 04/07/2024 12:01 PM [facility] Immature Granulocytes Absolute 0.01 0.00 - 0.03 K/mcL LAB HEMETOLOGY METHOD 04/07/2024 12:01 PM EST [facility] Blood Venous blood specimen / Unknown Venipuncture / Unknown 04/07/2024 11:40 AM EST 04/07/2024 11:53 AM EST Luis Eduardo Khoury MD LAB BLOOD ORDERABLES Final Result Performing Organization Address [facility]/ZIP Co de Phone Number [facility] [address] [place] [address], [place] [phone] * Lipase (04/07/2024 11:40 AM EST) [facility] Lipase 39 13 - 75 unit/L LAB CHEMISTRY METHOD 04/07/2024 12:23 PM [facility] Blood Venous blood specimen / Unknown Venipuncture / Unknown 04/07/2024 11:40 AM EST 04/07/2024 11:53 AM EST Luis Eduardo Khoury MD LAB BLOOD ORDERABLES Final Result Performing Organization Address [facility] de Phone Number [facility] [address] [place] [address], [place] [phone] * (ABNORMAL) Comprehensive metabolic panel (04/07/2024 11:40 AM EST) [facility] Sodium 138 133 - 145 mmol/L LAB CHEMISTRY METHOD 04/07/2024 12:25 PM [facility] Potassium 4.6 3.5 - 5.5 mmol/L LAB CHEMISTRY METHOD 04/07/2024 12:25 PM [facility] Chloride 106 96 - 110 mmol/L LAB CHEMISTRY METHOD 04/07/2024 12:25 PM [facility] CO2 30 21 - 32 mmol/L LAB CHEMISTRY METHOD 04/07/2024 12:25 PM [facility] Anion Gap 2(L) 3 - 11 LAB CHEMISTRY METHOD 04/07/2024 12:25 PM [facility] Glucose 97 70 - 100 mg/dL LAB CHEMISTRY METHOD 04/07/2024 12:25 PM [facility] BUN 9 5 - 25 mg/dL LAB CHEMISTRY METHOD 04/07/2024 12:25 PM [facility] Creatinine 0.66 0.50 - 1.10 mg/dL LAB CHEMISTRY METHOD 04/07/2024 12:25 PM [facility] eGFR 98 >=60 mL/min/1. 73m2 LAB CHEMISTRY METHOD 04/07/2024 12:25 PM [facility] Comment:Calculation based on the??Chronic Kidney Disease Epidemiology Collaboration (CKD-EPI) equation refit??without adjustment for race. BUN/Creatinine Ratio 13.6 LAB CHEMISTRY METHOD 04/07/2024 12:25 PM [facility] Calcium 9.2 8.5 - 10.5 mg/dL LAB CHEMISTRY METHOD 04/07/2024 12:25 PM [facility] AST (SGOT) 14 10 - 42 unit/L LAB CHEMISTRY METHOD 04/07/2024 12:25 PM [facility] ALT (SGPT) 22 10 - 60 unit/L LAB CHEMISTRY METHOD 04/07/2024 12:25 PM [facility] Alkaline Phosphatase 124(H) 42 - 121 unit/L LAB CHEMISTRY METHOD 04/07/2024 12:25 PM [facility] Total Protein 7.2 6.0 - 8.0 g/dL LAB CHEMISTRY METHOD 04/07/2024 12:25 PM [facility] Albumin 3.4 3.2 - 5.0 g/dL LAB CHEMISTRY METHOD 04/07/2024 12:25 PM [facility] Total Bilirubin 0.3 0.0 - 1.4 mg/dL LAB CHEMISTRY METHOD 04/07/2024 12:25 PM [facility] Blood Venous blood specimen / Unknown Venipuncture / Unknown 04/07/2024 11:40 AM EST 04/07/2024 11:53 AM EST us Luis Eduardo Khoury MD LAB BLOOD ORDERABLES Final Result [facility] [address] [place] [address], from Last 3 Months Insurance MEDICAID - [place] Care Teams Machine Stemmer Relationship Specialty Start Date End Date Thu Clark PA [address] [place] [address] PCP - General Physician Critical Care Technician 03/18/24
--- OUTSIDE RECORDS SUMMARY | 2024-04-26 11:09 | XMS_ITS | Encounter Summary ---
Author Organization [facility] Address [address] [place] [address] Care Team Providers Care Staff Software Engineer Name Role Phone Thu Clark PA-C Primary Care Provider [phone] Reason for Visit * Reason Comments Care Coordination Encounter Details Date Type Department Care Team ([facility] st Contact Info) Description 04/10/2024 Interim Notes Caring [facility] [address] [place] [phone] Felicitas Jiang [address] [place] [address] Social History Tobacco Use Types Packs/Day Years [...] Patient admitted 04/07/24 and discharged 04/07/24 from [facility]. Patient is on the wait list for a new patient appointment. Assigned to Viviane Phillips. documented in this encounter Plan of Treatment Not on file documented as of this encounter Visit Diagnoses Not on filedocumented in this encounter Additional Health Concerns Assessment Noted Time PHQ-9 Depression Total Score: 0 11/29/19 24 2:05 PM PDT documented as of this encounter Care Teams Staff Software Engineer Relationship Specialty Start Date End Date Thu Clark PA-C [facility] [place] [phone] PCP - General Internal Medicine 04/30/20 documented as of this encounter
--- OUTSIDE RECORDS SUMMARY | 2024-04-26 11:09 | XMS_ITS | Encounter Summary ---
Author Organization [facility] Address [address] [place] [address] Care Team Providers Care Assembler Movement Name Role Phone Thu Clark PA-C Primary Care Provider [phone] Encounter Details Date Type Department Care Team (Late st Contact Info) Description 11/20/2014 Scan Pathology [facility] [address] [place] [phone] Thu Clark PA-C [address] [place] [phone] Social History Tobacco Use Types Packs/Day Years [...] documented as of this encounter Care Teams Assembler Movement Relationship Specialty Start Date End Date Thu Clark PA-C [address] [place] [phone] PCP - General Internal Medicine 04/30/20 documented as of this encounter
--- OUTSIDE RECORDS SUMMARY | 2024-04-26 11:09 | XMS_ITS | Clinical Summary ---
Author Organization [facility] Address [address] [place] [address] Care Team Providers Care Workplace Rehabilitation Officer Name Role Phone Thu Kwan PA-C Primary Care Provider + [phone] Source Comments PLEASE NOTE, if this patient [...] mcg/actuation nasal sprayIndications:V iral sinusitis Place 1 [place] in both nostrils once daily 16 g [...] of left knee 11/07/2018 Overview (11/08/2018): Per [facility] 11/07/2018 Diagnostic radiology- Knee 1 or 2 views left Impression: mild midial tibiofemoral joint space loss, usually degenerative Functional constipation 04/15/2015 Insomnia 04/15/2015 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 COMMENTS: Contrast-enhanced Chest CT examination (MyNines VCT, 147.60 DLP (mGy-cm)) with imaging from [...] 01/22/2008 Lumbar degenerative disc disease Overview (03/12/2019): [facility] 03/02/2019 on examination I could find no abnormality in the lower extremities ... no evidence of DVT or peripheral artery obstruction ... her symptoms seem to be coming from her back and I suggested she be evaluated along those lines. We do not need to see her again. MRI Lumbar Spine W+W/O Contrast [facility] [place]/18/2018 No marrow or disc space abnormality [...] 07/17/2018. RESULT: MRI Lumbar Spine W+W/O Contrast [facility] 07/17/2018 ALIGNMENT, VERTEBRAE, MARROW, AND DISCS: There [...] Auth (Verified) Result title: 7B Encounter info: [id number], [facility], [facility], 03/01/2011 - 03/01/2011 Contributor system: NowForce * Final Report * 7B Colonoscopy and EGD Report Endoscopist(s): Elfego Brower MD Date: Tuesday, March 01, 2011 Ref. Phys.: ERICKA SWAIN Patient: CAROL BELLA Assisting Nurse(s)/ Other Personnel: ANTONINO HESS, S Colonoscopy Instrument: [id number] ([id number]) Date: 1960 (51 years) EGD Instrument: GIF [id number] ([id number]) ASA Class: P2 C Account: [id number] Medications: Versed 5 mg Meperidine 100mg Indications: [...] Dr. KWAN as needed Follow up with front end specialist as scheduled Maintain a high fiber diet Resume taking your current medications In the absence of a family history of colorectal cancer would repeat colonoscopy in 10 years Elfego Brower MD Case documentation started on 03/01/2011 1:58:09 PM Patient: CAROL BELLA ([id number] ) Resolved Problems Problem Noted Date Diagnosed Date Resolved Date HELICOBACTER PYLORI (H. PYLORI) 03/10/2022 Encounters Date Type Department Care Team Description 04/10/2024 Interim Notes [address] [phone] Eduardo Jiangeline 03/20/2024 2:00 PM EST Office Visit [address] [phone] Thu Kwan PA-C Hyperlipidemia, mixed (Primary Dx); [...] 11/29/2023 , 11/10/2022, 10/12/2021, Additional history exists [id number] () 06/18/2024 03/18/2021, 07/02/2020, 06/04/2020 Postponed from [...] AND CONFIRMATORY TESTING NON-REACT SEFERINO NON-REACT SEFERINO [facility] Comment: No laboratory evidence of syphilis. If recent exposure is suspected, submit a new sample in 2-4 weeks. Serum Blood / Unknown 03/20/2024 2 :05 PM EST 03/20/2024 2:05 PM EST Narrative [facility] - 03/21/2024 8:57 PM EST FASTING:NO Thu Kwan PA-C LAB - BLOOD DRAW Edited Resu lt - Final [facility] [address] [address], [facility] [address] [address] * HEPATITIS C AB W/RFLX HCV RNA, QT, RT PCR (03/20/2024 2:05 PM EST) HEPATITIS C ANTIBODY NON-REACT SEFERINO NON-REACT SEFERINO [email or web address] Comment: HCV antibody was non-reactive. There is no laboratory evidence of HCV infection. In most cases, no further action is required. However, if recent HCV exposure is suspected, a test for HCV RNA (test code 17825) is suggested. For additional information please refer to http://Local Matters.[employer]/faq/BTR63k7 (This link is being provided for informational/ educational purposes only.) Blood Blood / Unknown 03/20/2024 2 :05 PM EST 03/20/2024 2:05 PM EST Narrative [facility] - 03/21/2024 8:57 PM EST FASTING:NO us Thu Kwan PA-C LAB - BLOOD DRAW Edited Resu lt - Final [facility] [address] [place] [address], [email or web address] [address] [address] * HIV 1/2 AG & AB W/RFLX (4TH GEN) (03/20/2024 2:05 PM EST) HIV AG/AB, 4TH GEN NON-REAC TIVE NON-REAC TIVE [facility] Comment: HIV-1 antigen and HIV-1/HIV-2 antibodies were [...] ?? For additional information please refer to http://Local Matters.Frogdice.GlassUp/faq/GJQ749 (This link is being provided for informational/ educational purposes only.) The performance of this assay has not been clinically validated in patients less than 2 years old. Blood Blood / Unknown 03/20/2024 2 :05 PM EST 03/20/2024 2:05 PM EST Narrative [facility] - 03/21/2024 8:57 PM EST FASTING:NO Thu Kwan PA-C LAB - BLOOD DRAW Final Resul t Performing Organization Address [facility] Co de Phone Number [facility] [address] [address], [facility] [address] [address] * C TRACHOMATIS/N GONORRHOEAE RNA,TMA (03/20/2024 2:05 PM EST) CHLAMYDIA TRACHOMATIS RNA, TMA NOT DETECTED NOT DETECTED [facility] NEISSERIA GONORRHOEAE RNA, TMA NOT DETECTED NOT DETECTED [facility] COMMENT [facility] Urine Urine specimen / Unknown 03/20/2024 2:05 PM EST 03/20/2024 2:[address] [facility] - 03/21/2024 8:57 PM EST FASTING:NO The analytical performance characteristics of this assay, when used to test SurePath(TM) specimens have been determined by [employer]. The modifications have not been cleared or approved by the FDA. This assay has been validated pursuant to the CLIA regulations and is used for clinical purposes. For additional information, please refer to https://education.Gridstone Research/faq/QPS533 (This link is being provided for information/ educational purposes only.) Thu Kwan PA-C LAB - NO BLOOD DRAW Edited R esult - Final Performing Organization Address City/[facility] Co de Phone Number [facility] [address] [address], [facility] [address] [address] * TSH W/RFLX FREE T4 (03/20/2024 2:05 PM EST) TSH W/REFLEX TO FT4 2.16 0.40 - 4.50 mIU/L [facility] Blood Blood / Unknown 03/20/2024 2 :05 PM EST 03/20/2024 2:05 [address] [facility] - 03/21/2024 8:57 PM EST FASTING:NO Thu Kwan PA-C LAB - BLOOD DRAW Edited Resu lt - Final Performing Organization Address [facility]/ZIP Co de Phone Number [facility] [address] [address], [facility] [address] [address] * HEPATITIS B SURFACE AG, EIA WITH REFLEX CONFIRM (03/20/2024 2:05 PM EST) HEPATITIS B SURFACE ANTIGEN NON-REACT SEFERINO NON-REACT SEFERINO [employer] [facility] COMMENT [facility] Blood Blood / Unknown 03/20/2024 2 :05 PM EST 03/20/2024 2:05 PM EST Narrative [facility] [employer] [facility] - 03/21/2024 8:57 PM EST FASTING:NO For additional information, please refer to http://education.Gridstone Research/faq/IUJ382 (This link is being provided for informational/ educational purposes only.) Thu Kwan PA-C LAB - BLOOD DRAW Edited Resu lt - Final Performing Organization Address [facility]/ZIP Co de Phone Number [facility] [address] [address], [facility] [address] [address] * (ABNORMAL) LYME DISEASE, IGG/IGM AB, WESTERN BLOT (03/20/2024 2:05 PM EST) LYME DISEASE AB (IGG) WB NEGATIVE NEGATIVE [facility] 18 KD (IGG) BAND NON-REACTIVE [facility] 23 KD (IGG) BAND NON-REACTIVE [facility] 28 KD (IGG) BAND NON-REACTIVE [facility] 30 KD (IGG) BAND NON-REACTIVE [facility] 39 KD (IGG) BAND NON-REACTIVE [facility] 41 KD (IGG) BAND REACTIVE(A) [facility] 45 KD (IGG) BAND NON-REACTIVE [facility] 58 KD (IGG) BAND NON-REACTIVE [facility] 66 KD (IGG) BAND NON-REACTIVE [facility] 93 KD (IGG) BAND NON-REACTIVE [facility] LYME DISEASE AB (IGM) WB NEGATIVE NEGATIVE [facility] 23 KD (IGM) BAND NON-REACTIVE [facility] 39 KD (IGM) BAND NON-REACTIVE [facility] 41 KD (IGM) BAND NON-REACTIVE [facility] COMMENT [facility] Blood Blood / Unknown 03/20/2024 2 :05 PM EST 03/20/2024 2:05 PM EST [address]ative [facility] - 03/21/2024 8:57 PM EST FASTING:NO [...] LAB - BLOOD DRAW Final Resul t [facility] [address] [address], [facility] [address] [address] * BLOOD COUNT COMPLETE AUTO&AUTO DIFRNTL WBC (03/20/2024 2:05 PM EST) WHITE BLOOD CELL COUNT 10.1 3.8 - 10.8 Thousand/ uL [facility] RED BLOOD CELL COUNT 4.23 3.80 - 5.10 Million/u L [facility] HEMOGLOBIN 12.9 11.7 - 15.5 g/dL [facility] HEMATOCRIT 39.6 35.0 - 45.0 % [facility] MCV 93.6 80.0 - 100.0 fL [facility] MCH 30.5 27.0 - 33.0 pg [facility] MCHC 32.6 32.0 - 36.0 g/dL [facility] Comment: For adults, a slight decrease in the calculated MCHC value (in the range of 30 to 32 g/dL) is most likely not clinically significant; however, it should be interpreted with caution in correlation with other red cell parameters and the patient's clinical condition. RDW 13.6 11.0 - 15.0 % [facility] PLATELET COUNT 207 140 - 400 Thousand/ uL [facility] MPV 12.5 7.5 - 12.5 fL [facility] ABSOLUTE NEUTROPHILS 7,575 1,500 - 7,800 cells/uL [facility] ABSOLUTE LYMPHOCYTES 2,050 850 - 3,900 cells/uL [facility] ABSOLUTE MONOCYTES 303 200 - 950 cells/uL [facility] ABSOLUTE EOSINOPHILS 121 15 - 500 cells/uL [facility] ABSOLUTE BASOPHILS 51 0 - 200 cells/uL [facility] NEUTROPHILS PCT 75 % [employer] LYMPHOCYTES 20.3 % [facility] [employer] [facility] MONOCYTES 3.0 % [employer] DIAG [employer] [facility] EOSINOPHILS 1.2 % [facility] [employer] [facility] BASOPHILS 0.5 % [email or web address] [facility] Blood Blood / Unknown 03/20/2024 2 :05 PM EST 03/20/2024 2:05 PM EST Narrative [facility] - 03/21/2024 8:57 PM EST FASTING:NO Thu Kwan PA-C LAB - BLOOD DRAW Edited Resu lt - Final [facility] [address] [address], [facility] [address] [place] [address] * COMPREHENSIVE METABOLIC PANEL (03/20/2024 2:05 PM EST) GLUCOSE 91 65 - 139 mg/dL [email or web address] [facility] Comment: ?Non-fasting reference interval UREA NITROGEN (BUN) 16 7 - 25 mg/dL [facility] CREATININE (blood) 0.66 0.50 - 1.05 mg/dL [facility] EGFR 98 > OR = 60 mL/min/1. 73m2 [facility] BUN/CREATININE RATIO SEE NOTE: [email or web address] [facility] Comment: ?? Not Reported: BUN and Creatinine are within ?? reference range. ? SODIUM 138 135 - 146 mmol/L [facility] POTASSIUM 4.8 3.5 - 5.3 mmol/L [facility] CHLORIDE 102 98 - 110 mmol/L [facility] CARBON DIOXIDE 29 20 - 32 mmol/L [facility] CALCIUM 9.4 8.6 - 10.4 mg/dL [facility] PROTEIN, TOTAL 7.4 6.1 - 8.1 g/dL [facility] ALBUMIN 4.4 3.6 - 5.1 g/dL [facility] GLOBULIN 3.0 1.9 - 3.7 g/dL (calc) [facility] ALBUMIN/GLOBULI N RATIO 1.5 1.0 - 2.5 (calc) [facility] BILIRUBIN, TOTAL 0.3 0.2 - 1.2 mg/dL [facility] ALKALINE PHOSPHATASE 129 37 - 153 U/L [facility] AST 15 10 - 35 U/L [facility] ALT 15 6 - 29 U/L [facility] Blood Blood / Unknown 03/20/2024 2 :05 PM EST 03/20/2024 2:05 PM EST Narrative [employer] - 03/21/2024 8:57 PM EST FASTING:NO Thu Kwan PA-C LAB - BLOOD DRAW Edited Resu lt - Final [facility] [address] [address], [facility] [address] [address] * REFERRAL SCANNED DOCUMENT (03/16/2024 3:00 AM EST) 03/16/2024 3:00 AM EST us Thu Kwan PA-C SCAN REFERRAL Final Result * (ABNORMAL) LIPID PANEL (11/29/2023 3:05 PM EDT) CHOLESTEROL, TOTAL 271(H) <200 mg/dL [facility] HDL CHOLESTEROL 31(L) > OR = 50 mg/dL [facility] TRIGLYCERIDES 297(H) <150 mg/dL [facility] Comment: If a non-fasting specimen was collected, consider repeat triglyceride testing on a fasting specimen if clinically indicated. Chandrika. J. of Clin. Lipidol. 2015;9:129-169. LDL-CHOLESTEROL 190(H) 99 mg/dL (calc) [facility] Comment: LDL-C levels > or = 190 [...] about testing for familial hypercholesterolemia, please call [employer] at [email or web address]. Jaylyn Cummings, et al. J National Lipid Association Recommendations for Patient-Centered Management of Dyslipidemia: Part 1 Journal of Clinical Lipidology 2015;9(2), 129-169. Yahir Sevilla. et al. (2014). Homozygous familial hypercholesterolaemia: new insights and guidance for clinicians to improve detection and clinical management. Heart Journal, 35(32), 3867-8909. Reference range: <100 Desirable range <100 mg/dL for primary prevention; ?? <70 mg/dL for patients with CHD or diabetic patients with > or = 2 CHD risk factors. LDL-C is now calculated using the Shon-Sumaya calculation, which is a validated novel method providing better accuracy than the Friedewald equation in the estimation of LDL-C. Shon BOTELLO et al. MARISSA. 2013;310(19): 4237-6784 (http://education.RackWare/faq/OJH504) CHOL/HDLC RATIO 8.7(H) <5.0 (calc) [facility] NON-HDL CHOLESTEROL 240(H) <130 mg/dL (calc) [facility] Comment: Non-HDL level > or = 220 [...] DRAW Final Resul t Performing Organization Address [facility]/ZIP Co de Phone Number [facility] [address] [address], [facility] [address] [address] * (ABNORMAL) PAP SMEAR W/HPV (03/20/2020) PAP SMEAR INTERPRETATION ABNORMAL(A) NORMAL [facility] HPV (HUMAN PAPILLOMA) POSITIVE(A) NEGATIVE [facility] HPV TYPE 16 POSITIVE NEGATIVE [facility] HPV TYPE 18 POSITIVE NEGATIVE [facility] Swab 03/20/2020 Impressions [facility] - 03/27/2020 1:18 PM EST ASCUS, high risk HPV positive Provider Brenton LAB - NO BLOOD DRAW Final Result Performing Organization Address City/[facility] Co de Phone Number [facility] [address] [place] [address], * COLPOSCOPY, ABSTRACTED (11/24/2018) 11/24/2018 [facility] - 12/27/2018 10:54 AM EST Polyp (3mm to 5 mm) ??In the ascending colon. (polypectomy). Polyp (5mm) in the transverse colon, (Polypectomy). Polyps (5mm) in the rectum. (Polypectomy). Diverticulitis of the descending colon. Internal and external hemorrhoids. Colon otherwise normal to the terminal ileum including retroflexion. us Provider [place] PROCEDURES Final Result [facility] [address] [place] [address], * (ABNORMAL) URINE DRUG SCREEN (05/02/2017 11:40 AM EDT) BENZODIAZEPINE, URINE NONE DETECTED ND [facility] Comment: Assay cutoff 200 ng/mL Semi-quantitative assay for screening purposes only. Unconfirmed screening result should not be used for non-medical purposes. *ALTERNATE METHOD CONFIRMATION DONE UPON REQUEST ONLY* COCAINE, URINE POSITIVE(A) ND [facility] Comment: Assay cutoff 300 ng/mL Semi-quantitative assay for screening purposes only. Unconfirmed screening result should not be used for non-medical purposes. *ALTERNATE METHOD CONFIRMATION DONE UPON REQUEST ONLY* AMPHETAMINE, URINE NONE DETECTED ND [facility] Comment: Assay cutoff 1000 ng/mL Semi-quantitative assay for screening purposes only. Unconfirmed screening result should not be used for non-medical purposes. *ALTERNATE METHOD CONFIRMATION DONE UPON REQUEST ONLY* MARIJUANA (THC), URINE NONE DETECTED ND [facility] Comment: Assay cutoff 50 ng/mL Semi-quantitative assay for screening purposes only. Unconfirmed screening result should not be used for non-medical purposes. *ALTERNATE METHOD CONFIRMATION DONE UPON REQUEST ONLY* OPIATES, URINE NONE DETECTED ND [facility] Comment: Assay cutoff 300 ng/mL Semi-quantitative assay for screening purposes only. Unconfirmed screening result should not be used for non-medical purposes. *ALTERNATE METHOD CONFIRMATION DONE UPON REQUEST ONLY* BARBITURATES, URINE NONE DETECTED ND [facility] Comment: Assay cutoff 200 ng/mL Semi-quantitative assay for screening purposes only. Unconfirmed screening result should not be used for non-medical purposes. *ALTERNATE METHOD CONFIRMATION DONE UPON REQUEST ONLY* Urine specimen (specimen) Urine specimen / Unknown 05/02/2017 11:40 AM EDT 05/02/2017 12:13 PM EDT Narrative [facility] - 05/02/2017 4:35 PM EDT [employer] [address] [place] [address] [place] [id number] ORD# [id number] us Thu Kwan PA-C LAB - NO BLOOD DRAW Final [facility] [address] [place] [address], from Last 3 Months or Most Recently Relevant to Health Maintenance Insurance [facility] [employer] [employer] Care Teams Workplace Rehabilitation Officer Relationship Specialty Start Date End Date Thu Kwan PA-C [address] [place] [phone] PCP - General Internal Medicine 04/30/20
== END 2024-04-26 10:48 | disposition home or self-care (01) ==
PROVIDERS: PCP Physician Assistant; Visit Provider Hospitalist
DX: J44.0 Chronic obstructive pulmonary disease with (acute) lower respiratory infection (principal); J84.9 Interstitial pulmonary disease, unspecified; F17.210 Nicotine dependence, cigarettes, uncomplicated; R91.8 Other nonspecific abnormal finding of lung field; R07.81 Pleurodynia
CPT/HCPCS: 99214

== ENCOUNTER 2024-04-26 09:44 | Outpatient (REF) | payer MEDICAID, SELFPAY ==
[2024-04-26 11:08] LABS: MANUAL DIFF FLAG NO
[2024-04-26 11:17] LABS: Basophils Absolute Auto 0.1 X10*3/uL (0.0-0.2); Basophils Percent Auto 0.8 % (0-2); Eosinophils Absolute Auto 0.4 X10*3/uL (0.0-0.4); Eosinophils Percent Auto 4.1 % (0-4); Hematocrit 36.4 % (37.0-47.0); Hemoglobin 11.8 g/dl (12.0-16.0); Imm Gran Abs Auto 0.03 X10*3/uL (0.00-0.03); Imm Gran Pct Auto 0.3 % (0.0-0.4); Lymphocytes Absolute Auto 3.8 X10*3/uL (1.2-4.9); Mean Corpuscular HGB Conc 32.4 g/dl (31.0-35.0); Mean Corpuscular Hemoglobin 29.8 pg (27.0-33.0); Mean Corpuscular Volume 91.9 fL (80.0-98.0); Mean Platelet Volume 10.9 fL (9.4-12.3); Monocytes Absolute Auto 0.5 X10*3/uL (0.1-1.2); Monocytes Percent Auto 5.1 % (2-11); Neutrophils Absolute Auto 4.5 x10*3/uL (2.0-8.3); Neutrophils Percent Auto 48.7 % (45-73); Platelet Count 207 X10*3/uL (160-400); Red Blood Count 3.96 X10*6/uL (4.20-5.50); Red Cell Distribution Width 14.5 % (11.0-16.0); White Blood Count 9.2 X10*3/uL (4.8-10.8)
[2024-04-26 11:26] LABS: D Dimer High Sensitivity < 150 NG/ML
[2024-04-26 11:43] LABS: Anion Gap 11 (12-20); Blood Urea Nitrogen 10 mg/dL (9-16); Calcium 9.2 mg/dL (8.4-10.2); Carbon Dioxide 25 mmol/L (22-29); Chloride 108 mmol/L (96-108); Estimated Glomerular Filt Rate > 60; Glucose Random 99 mg/dL (60-115); Potassium 3.7 mmol/L (3.3-5.1); Sodium 140 mmol/L (135-145)
[2024-04-26 12:46] LABS: Erythrocyte Sedimentation Rate 32 MM/HR (0-20)
--- OUTSIDE RECORDS SUMMARY | 2024-04-26 13:09 | XMS_ITS | Clinical Summary ---
Author Organization [facility] Address [address] [place] [address] Phone Care Team Providers Care Thresher Broomcorn Name Role Phone Thu Clark Primary Care Provider [phone] Allergies No known active allergies Medications ondansetron ODT (ZOFRAN-ODT) 4 mg disintegrating tablet Let 1 tablet dissolve under the tongue three times daily as needed for nausea or vomiting. 10 tablet 5 04/14/19 25 Encounters Date Type Department Care Team Description 04/07/2024 12:23 PM EST - 04/07/2024 5:14 PM [facility] Emergency [address] [place] [phone] Luis Eduardo Khoury MD Other acute gastritis without hemorrhage (Primary Dx) Discharge Disposition: Home or Self Care 03/18/2024 5:42 PM EST - 03/18/2024 6:41 PM [facility] Emergency [address] [place] [phone] Quirino Baez MD Cellulitis and abscess of [...] Signed Date: 04/07/2024 16:01 ET Workstation ID: [id number] Transcribed By: Self Edit Transcribed Date: 04/07/2024 15:59 ET Narrative 04/07/2024 4:01 PM EST Exam: US ABDOMEN LIMITED Date of Study: 04/07/2024 3:35 PM CLINICAL INFORMATION: Eval for gallbladder disease TECHNIQUE: Real-time ultrasound scanning of the region of interest performed by the oil prospecting observer. Forming Tube Selector static images and video clips are submitted [...] of the region of interestperformed by the oil prospecting observer. Forming Tube Selector static images and video clipsare submitted for [...] Signed Date: 04/07/2024 16:01 ET Workstation ID: [id number] Transcribed By: Self Edit Transcribed Date: 04/07/2024 15:59 ET us Weston BARNETT IMG US PROCEDURES Final Resu lt * (ABNORMAL) CBC auto differential (04/07/2024 11:40 AM EST) [facility] Signature WBC 8.3 4.8 - 10.8 K/mcL LAB HEMETOLOGY METHOD 04/07/2024 12:01 PM [facility] RBC 3.90 3.80 - 4.80 M/mcL LAB HEMETOLOGY METHOD 04/07/2024 12:01 PM [facility] Hemoglobin 11.9 11.5 - 16.0 g/dL LAB HEMETOLOGY METHOD 04/07/2024 12:01 PM [facility] Hematocrit 37.4 35.0 - 47.0 % LAB HEMETOLOGY METHOD 04/07/2024 12:01 PM [facility] MCV 96.4 79.0 - 98.0 FL LAB HEMETOLOGY METHOD 04/07/2024 12:01 PM [facility] MCH 30.7 27.0 - 32.0 pcg LAB HEMETOLOGY METHOD 04/07/2024 12:01 PM [facility] MCHC 31.8(L) 32.0 - 37.0 g/dL LAB HEMETOLOGY METHOD 04/07/2024 12:01 PM [facility] RDW 15.0 11.0 - 15.0 % LAB HEMETOLOGY METHOD 04/07/2024 12:01 PM [facility] Platelets 193 130 - 400 K/mcL LAB HEMETOLOGY METHOD 04/07/2024 12:01 PM [facility] MPV 11.1(H) 7.0 - 11.0 FL LAB HEMETOLOGY METHOD 04/07/2024 12:01 PM [facility] NRBC 0.0 <1.0 % LAB HEMETOLOGY METHOD 04/07/2024 12:01 PM [facility] NRBC Absolute 0.00 <0.10 K/mcL LAB HEMETOLOGY METHOD 04/07/2024 12:01 PM [facility] Neutrophils Relative 47.9 % LAB HEMETOLOGY METHOD 04/07/2024 12:01 PM [facility] Lymphocytes Relative 42.6 % LAB HEMETOLOGY METHOD 04/07/2024 12:01 PM [facility] Monocytes Relative 5.5 % LAB HEMETOLOGY METHOD 04/07/2024 12:01 PM [facility] Eosinophils Relative 3.3 % LAB HEMETOLOGY METHOD 04/07/2024 12:01 PM [facility] Basophils Relative 0.6 % LAB HEMETOLOGY METHOD 04/07/2024 12:01 PM [facility] Immature Granulocytes Relative 0.1 % LAB HEMETOLOGY METHOD 04/07/2024 12:01 PM [facility] Neutrophils Absolute 3.97 1.50 - 7.00 K/mcL LAB HEMETOLOGY METHOD 04/07/2024 12:01 PM [facility] Lymphocytes Absolute 3.53 1.00 - 5.00 K/mcL LAB HEMETOLOGY METHOD 04/07/2024 12:01 PM [facility] Monocytes Absolute 0.46 0.20 - 1.00 K/mcL LAB HEMETOLOGY METHOD 04/07/2024 12:01 PM [facility] Eosinophils Absolute 0.27 0.00 - 0.50 K/mcL LAB HEMETOLOGY METHOD 04/07/2024 12:01 PM [facility] Basophils Absolute 0.05 0.00 - 0.20 K/mcL LAB HEMETOLOGY METHOD 04/07/2024 12:01 PM [facility] Immature Granulocytes Absolute 0.01 0.00 - 0.03 K/mcL LAB HEMETOLOGY METHOD 04/07/2024 12:01 PM EST [facility] Blood Venous blood specimen / Unknown Venipuncture / Unknown 04/07/2024 11:40 AM EST 04/07/2024 11:53 AM EST Luis Eduardo Khoury MD LAB BLOOD ORDERABLES Final Result Performing Organization Address [facility]/ZIP Co de Phone Number [facility] [address] [place] [address], [place] [phone] * Lipase (04/07/2024 11:40 AM EST) [facility] Lipase 39 13 - 75 unit/L LAB CHEMISTRY METHOD 04/07/2024 12:23 PM [facility] Blood Venous blood specimen / Unknown Venipuncture / Unknown 04/07/2024 11:40 AM EST 04/07/2024 11:53 AM EST Luis Eduardo Khoury MD LAB BLOOD ORDERABLES Final Result Performing Organization Address [facility] de Phone Number [facility] [address] [place] [address], [place] [phone] * (ABNORMAL) Comprehensive metabolic panel (04/07/2024 11:40 AM EST) [facility] Sodium 138 133 - 145 mmol/L LAB CHEMISTRY METHOD 04/07/2024 12:25 PM [facility] Potassium 4.6 3.5 - 5.5 mmol/L LAB CHEMISTRY METHOD 04/07/2024 12:25 PM [facility] Chloride 106 96 - 110 mmol/L LAB CHEMISTRY METHOD 04/07/2024 12:25 PM [facility] CO2 30 21 - 32 mmol/L LAB CHEMISTRY METHOD 04/07/2024 12:25 PM [facility] Anion Gap 2(L) 3 - 11 LAB CHEMISTRY METHOD 04/07/2024 12:25 PM [facility] Glucose 97 70 - 100 mg/dL LAB CHEMISTRY METHOD 04/07/2024 12:25 PM [facility] BUN 9 5 - 25 mg/dL LAB CHEMISTRY METHOD 04/07/2024 12:25 PM [facility] Creatinine 0.66 0.50 - 1.10 mg/dL LAB CHEMISTRY METHOD 04/07/2024 12:25 PM [facility] eGFR 98 >=60 mL/min/1. 73m2 LAB CHEMISTRY METHOD 04/07/2024 12:25 PM [facility] Comment:Calculation based on the??Chronic Kidney Disease Epidemiology Collaboration (CKD-EPI) equation refit??without adjustment for race. BUN/Creatinine Ratio 13.6 LAB CHEMISTRY METHOD 04/07/2024 12:25 PM [facility] Calcium 9.2 8.5 - 10.5 mg/dL LAB CHEMISTRY METHOD 04/07/2024 12:25 PM [facility] AST (SGOT) 14 10 - 42 unit/L LAB CHEMISTRY METHOD 04/07/2024 12:25 PM [facility] ALT (SGPT) 22 10 - 60 unit/L LAB CHEMISTRY METHOD 04/07/2024 12:25 PM [facility] Alkaline Phosphatase 124(H) 42 - 121 unit/L LAB CHEMISTRY METHOD 04/07/2024 12:25 PM [facility] Total Protein 7.2 6.0 - 8.0 g/dL LAB CHEMISTRY METHOD 04/07/2024 12:25 PM [facility] Albumin 3.4 3.2 - 5.0 g/dL LAB CHEMISTRY METHOD 04/07/2024 12:25 PM [facility] Total Bilirubin 0.3 0.0 - 1.4 mg/dL LAB CHEMISTRY METHOD 04/07/2024 12:25 PM [facility] Blood Venous blood specimen / Unknown Venipuncture / Unknown 04/07/2024 11:40 AM EST 04/07/2024 11:53 AM EST us Luis Eduardo Khoury MD LAB BLOOD ORDERABLES Final Result [facility] ([facility] [address] [place] [address], from Last 3 Months Insurance MEDICAID - [place] Care Teams Thresher Broomcorn Relationship Specialty Start Date End Date Thu Clark PA [address] [place] [phone] PCP - General Physician Biosolids Management Technician 03/18/24
--- OUTSIDE RECORDS SUMMARY | 2024-04-26 13:09 | XMS_ITS | Encounter Summary ---
Author Organization [facility] Address [address] [place] [address] Care Team Providers Care Visiting Professor Name Role Phone Thu Clark PA-C Primary Care Provider [phone] Encounter Details Date Type Department Care Team (Late st Contact Info) Description 11/20/2014 Scan Pathology [facility] Primary Care [address] [place] [phone] Thu Clark PA-C [address] [place] [phone] Social History Tobacco Use Types Packs/Day Years [...] documented as of this encounter Care Teams Visiting Professor Relationship Specialty Start Date End Date Thu Clark PA-C [address] [place] [phone] PCP - General Internal Medicine 04/30/20 documented as of this encounter
--- OUTSIDE RECORDS SUMMARY | 2024-04-26 13:09 | XMS_ITS | Encounter Summary ---
Author Organization [facility] Address [address] [place] [address] Care Team Providers Care Tool Crib Attendant Name Role Phone Thu Clark PA-C Primary Care Provider + [phone] Reason for Visit * Reason Comments Care Coordination Encounter Details Date Type Department Care Team ([facility] st Contact Info) Description 04/10/2024 Interim Notes Caring [facility] [address] [place] [phone] Felicitas Jiang [address] [place] [address] Social History Tobacco Use Types Packs/Day Years [...] Patient admitted 04/07/24 and discharged 04/07/24 from [facility]. Patient is on the wait list for a new patient appointment. Assigned to Viviane Phillips. documented in this encounter Plan of Treatment Not on file documented as of this encounter Visit Diagnoses Not on filedocumented in this encounter Additional Health Concerns Assessment Noted Time PHQ-9 Depression Total Score: 0 11/29/19 24 2:05 PM PDT documented as of this encounter Care Teams Tool Crib Attendant Relationship Specialty Start Date End Date Thu Clark PA-C [facility] [place] [phone] PCP - General Internal Medicine 04/30/20 documented as of this encounter
--- OUTSIDE RECORDS SUMMARY | 2024-04-26 13:09 | XMS_ITS | Clinical Summary ---
Author Organization [facility] Address [address] [place] [address] Care Team Providers Care Marketing Communications Assistant Name Role Phone Thu Kwan PA-C Primary Care Provider + [phone] Source Comments PLEASE NOTE, if this patient [...] mcg/actuation nasal sprayIndications:V iral sinusitis Place 1 [place] in both nostrils once daily 16 g [...] of left knee 11/07/2018 Overview (11/08/2018): Per [facility] 11/07/2018 Diagnostic radiology- Knee 1 or 2 views left Impression: mild midial tibiofemoral joint space loss, usually degenerative Functional constipation 04/15/2015 Insomnia 04/15/2015 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 COMMENTS: Contrast-enhanced Chest CT examination (EasySize VCT, 147.60 DLP (mGy-cm)) with imaging from [...] 01/22/2008 Lumbar degenerative disc disease Overview (03/12/2019): [facility] 03/02/2019 on examination I could find no abnormality in the lower extremities ... no evidence of DVT or peripheral artery obstruction ... her symptoms seem to be coming from her back and I suggested she be evaluated along those lines. We do not need to see her again. MRI Lumbar Spine W+W/O Contrast [facility] 11/18/2018 No marrow or disc space abnormality [...] 07/17/2018. RESULT: MRI Lumbar Spine W+W/O Contrast [facility] 07/17/2018 ALIGNMENT, VERTEBRAE, MARROW, AND DISCS: There [...] Auth (Verified) Result title: 7B Encounter info: [id number], [facility], [facility], 03/01/2011 - 03/01/2011 Contributor system: [employer] * Final Report * 7B Colonoscopy and EGD Report Endoscopist(s): Elfego Brower MD Date: Tuesday, March 01, 2011 Ref. Phys.: ERICKA SWAIN Patient: CAROL BELLA Assisting Nurse(s)/ Other Personnel: ANTONINO HESS, S Colonoscopy Instrument: [id number] ([id number]) Date: 1960 (51 years) EGD Instrument: GIF [id number] ([id number]) ASA Class: P2 C Account: [id number] Medications: Versed 5 mg Meperidine 100mg Indications: [...] Dr. KWAN as needed Follow up with migrant leader as scheduled Maintain a high fiber diet Resume taking your current medications In the absence of a family history of colorectal cancer would repeat colonoscopy in 10 years Elfego Brower MD Case documentation started on 03/01/2011 1:58:09 PM Patient: CAROL BELLA ([id number] ) Resolved Problems Problem Noted Date Diagnosed Date Resolved Date HELICOBACTER PYLORI (H. PYLORI) 03/10/2022 Encounters Date Type Department Care Team Description 04/10/2024 Interim Notes [address] [phone] Eduardo Jiangeline 03/20/2024 2:00 PM EST Office Visit [address] [phone] Thu Kwan PA-C Hyperlipidemia, mixed (Primary Dx); [...] 11/29/2023 , 11/10/2022, 10/12/2021, Additional history exists [id number] () 06/18/2024 03/18/2021, 07/02/2020, 06/04/2020 Postponed from [...] AND CONFIRMATORY TESTING NON-REACT SEFERINO NON-REACT SEFERINO [facility] Comment: No laboratory evidence of syphilis. If recent exposure is suspected, submit a new sample in 2-4 weeks. Serum Blood / Unknown 03/20/2024 2 :05 PM EST 03/20/2024 2:05 PM EST Narrative [employer] - 03/21/2024 8:57 PM EST FASTING:NO Thu Kwan PA-C LAB - BLOOD DRAW Edited Resu lt - Final [employer] [address] [address], [facility] [address] [address] * HEPATITIS C AB W/RFLX HCV RNA, QT, RT PCR (03/20/2024 2:05 PM EST) HEPATITIS C ANTIBODY NON-REACT SEFERINO NON-REACT SEFERINO [facility] Comment: HCV antibody was non-reactive. There is no laboratory evidence of HCV infection. In most cases, no further action is required. However, if recent HCV exposure is suspected, a test for HCV RNA (test code 61948) is suggested. For additional information please refer to http://Sunway Communication.Prixel/faq/RTR82a7 (This link is being provided for informational/ educational purposes only.) Blood Blood / Unknown 03/20/2024 2 :05 PM EST 03/20/2024 2:05 PM EST Narrative [employer] - 03/21/2024 8:57 PM EST FASTING:NO us Thu Kwan PA-C LAB - BLOOD DRAW Edited Resu lt - Final [facility] [address] [place] [address], [facility] [address] [address] * HIV 1/2 AG & AB W/RFLX (4TH GEN) (03/20/2024 2:05 PM EST) HIV AG/AB, 4TH GEN NON-REAC TIVE NON-REAC TIVE [facility] Comment: HIV-1 antigen and HIV-1/HIV-2 antibodies were [...] ?? For additional information please refer to http://[employer].Velotton.Paperless Post/faq/WSV663 (This link is being provided for informational/ educational purposes only.) The performance of this assay has not been clinically validated in patients less than 2 years old. Blood Blood / Unknown 03/20/2024 2 :05 PM EST 03/20/2024 2:05 PM EST Narrative [employer] - 03/21/2024 8:57 PM EST FASTING:NO Thu Kwan PA-C LAB - BLOOD DRAW Final Resul t Performing Organization Address [facility] Co de Phone Number [facility] [address] [address], [facility] [address] [address] * C TRACHOMATIS/N GONORRHOEAE RNA,TMA (03/20/2024 2:05 PM EST) CHLAMYDIA TRACHOMATIS RNA, TMA NOT DETECTED NOT DETECTED [facility] NEISSERIA GONORRHOEAE RNA, TMA NOT DETECTED NOT DETECTED [facility] COMMENT [facility] Urine Urine specimen / Unknown 03/20/2024 2:05 PM EST 03/20/2024 2:05 PM EST Narrative [facility] - 03/21/2024 8:57 PM EST FASTING:NO The analytical performance characteristics of this assay, when used to test SurePath(TM) specimens have been determined by [employer]. The modifications have not been cleared or approved by the FDA. This assay has been validated pursuant to the CLIA regulations and is used for clinical purposes. For additional information, please refer to https://education.Prixel/faq/QKL789 (This link is being provided for information/ educational purposes only.) Thu Kwan PA-C LAB - NO BLOOD DRAW Edited R esult - Final Performing Organization Address [facility] Co de Phone Number [facility] [address] [address], [facility] [address] [address] * TSH W/RFLX FREE T4 (03/20/2024 2:05 PM EST) TSH W/REFLEX TO FT4 2.16 0.40 - 4.50 mIU/L [facility] Blood Blood / Unknown 03/20/2024 2 :05 PM EST 03/20/2024 2:05 PM EST Narrative [facility] - 03/21/2024 8:57 PM EST FASTING:NO Thu Kwan PA-C LAB - BLOOD DRAW Edited Resu lt - Final Performing Organization Address [facility]/ZIP Co de Phone Number [facility] [address] [address], [facility] [address] [address] * HEPATITIS B SURFACE AG, EIA WITH REFLEX CONFIRM (03/20/2024 2:05 PM EST) HEPATITIS B SURFACE ANTIGEN NON-REACT SEFERINO NON-REACT SEFERINO [employer] [facility] COMMENT [facility] Blood Blood / Unknown 03/20/2024 2 :05 PM EST 03/20/2024 2:05 PM EST Narrative [facility] [employer] [facility] - 03/21/2024 8:57 PM EST FASTING:NO For additional information, please refer to http://education.Prixel/faq/NAE757 (This link is being provided for informational/ educational purposes only.) Thu Kwan PA-C LAB - BLOOD DRAW Edited Resu lt - Final Performing Organization Address [facility]/ZIP Co de Phone Number [facility] [address] [address], [facility] [address] [address] * (ABNORMAL) LYME DISEASE, IGG/IGM AB, WESTERN BLOT (03/20/2024 2:05 PM EST) LYME DISEASE AB (IGG) WB NEGATIVE NEGATIVE [facility] 18 KD (IGG) BAND NON-REACTIVE [facility] 23 KD (IGG) BAND NON-REACTIVE [facility] 28 KD (IGG) BAND NON-REACTIVE [facility] 30 KD (IGG) BAND NON-REACTIVE [facility] 39 KD (IGG) BAND NON-REACTIVE [facility] 41 KD (IGG) BAND REACTIVE(A) [facility] 45 KD (IGG) BAND NON-REACTIVE [facility] 58 KD (IGG) BAND NON-REACTIVE [facility] 66 KD (IGG) BAND NON-REACTIVE [facility] 93 KD (IGG) BAND NON-REACTIVE [facility] LYME DISEASE AB (IGM) WB NEGATIVE NEGATIVE [facility] 23 KD (IGM) BAND NON-REACTIVE [facility] 39 KD (IGM) BAND NON-REACTIVE [facility] 41 KD (IGM) BAND NON-REACTIVE [facility] COMMENT [facility] Blood Blood / Unknown 03/20/2024 2 :05 PM EST 03/20/2024 2:05 PM EST Narrative [facility] - 03/21/2024 8:57 PM EST FASTING:NO [...] LAB - BLOOD DRAW Final Resul t [facility] [address] [address], [facility] [address] [address] * BLOOD COUNT COMPLETE AUTO&AUTO DIFRNTL WBC (03/20/2024 2:05 PM EST) WHITE BLOOD CELL COUNT 10.1 3.8 - 10.8 Thousand/ uL [facility] RED BLOOD CELL COUNT 4.23 3.80 - 5.10 Million/u L [facility] HEMOGLOBIN 12.9 11.7 - 15.5 g/dL [facility] HEMATOCRIT 39.6 35.0 - 45.0 % [facility] MCV 93.6 80.0 - 100.0 fL [facility] MCH 30.5 27.0 - 33.0 pg [facility] MCHC 32.6 32.0 - 36.0 g/dL [facility] Comment: For adults, a slight decrease in the calculated MCHC value (in the range of 30 to 32 g/dL) is most likely not clinically significant; however, it should be interpreted with caution in correlation with other red cell parameters and the patient's clinical condition. RDW 13.6 11.0 - 15.0 % [facility] PLATELET COUNT 207 140 - 400 Thousand/ uL [facility] MPV 12.5 7.5 - 12.5 fL [facility] ABSOLUTE NEUTROPHILS 7,575 1,500 - 7,800 cells/uL [facility] ABSOLUTE LYMPHOCYTES 2,050 850 - 3,900 cells/uL [facility] ABSOLUTE MONOCYTES 303 200 - 950 cells/uL [facility] ABSOLUTE EOSINOPHILS 121 15 - 500 cells/uL [facility] ABSOLUTE BASOPHILS 51 0 - 200 cells/uL [facility] NEUTROPHILS PCT 75 % [employer] LYMPHOCYTES 20.3 % [facility] MONOCYTES 3.0 % [employer] [facility] [employer] [facility] EOSINOPHILS 1.2 % [facility] BASOPHILS 0.5 % [employer] [facility] Blood Blood / Unknown 03/20/2024 2 :05 PM EST 03/20/2024 2:05 PM EST Narrative [facility] - 03/21/2024 8:57 PM EST FASTING:NO Thu Kwan PA-C LAB - BLOOD DRAW Edited Resu lt - Final [facility] [address] [address], [facility] [address] [place] [address] * COMPREHENSIVE METABOLIC PANEL (03/20/2024 2:05 PM EST) GLUCOSE 91 65 - 139 mg/dL [facility] Comment: ?Non-fasting reference interval UREA NITROGEN (BUN) 16 7 - 25 mg/dL [facility] CREATININE (blood) 0.66 0.50 - 1.05 mg/dL [facility] EGFR 98 > OR = 60 mL/min/1. 73m2 [facility] BUN/CREATININE RATIO SEE NOTE: [facility] Comment: ?? Not Reported: BUN and Creatinine are within ?? reference range. ? SODIUM 138 135 - 146 mmol/L [facility] POTASSIUM 4.8 3.5 - 5.3 mmol/L [facility] CHLORIDE 102 98 - 110 mmol/L [facility] CARBON DIOXIDE 29 20 - 32 mmol/L [facility] CALCIUM 9.4 8.6 - 10.4 mg/dL [facility] PROTEIN, TOTAL 7.4 6.1 - 8.1 g/dL [facility] ALBUMIN 4.4 3.6 - 5.1 g/dL [facility] GLOBULIN 3.0 1.9 - 3.7 g/dL (calc) [facility] ALBUMIN/GLOBULI N RATIO 1.5 1.0 - 2.5 (calc) [facility] BILIRUBIN, TOTAL 0.3 0.2 - 1.2 mg/dL [facility] ALKALINE PHOSPHATASE 129 37 - 153 U/L [facility] AST 15 10 - 35 U/L [facility] ALT 15 6 - 29 U/L [facility] Blood Blood / Unknown 03/20/2024 2 :05 PM EST 03/20/2024 2:05 PM EST Narrative [employer] [facility] - 03/21/2024 8:57 PM EST FASTING:NO Thu Kwan PA-C LAB - BLOOD DRAW Edited Resu lt - Final [facility] [address] [address], [facility] [address] [address] * REFERRAL SCANNED DOCUMENT (03/16/2024 3:00 AM EST) 03/16/2024 3:00 AM EST us Thu Kwan PA-C SCAN REFERRAL Final Result * (ABNORMAL) LIPID PANEL (11/29/2023 3:05 PM EDT) CHOLESTEROL, TOTAL 271(H) <200 mg/dL [facility] HDL CHOLESTEROL 31(L) > OR = 50 mg/dL [facility] TRIGLYCERIDES 297(H) <150 mg/dL [facility] Comment: If a non-fasting specimen was collected, consider repeat triglyceride testing on a fasting specimen if clinically indicated. Chandrika. J. of Clin. Lipidol. 2015;9:129-169. LDL-CHOLESTEROL 190(H) 99 mg/dL (calc) [facility] Comment: LDL-C levels > or = 190 [...] about testing for familial hypercholesterolemia, please call [employer] [facility] at [phone].INFO. Jaylyn Cummings, et al. J National Lipid Association Recommendations for Patient-Centered Management of Dyslipidemia: Part 1 Journal of Clinical Lipidology 2015;9(2), 129-169. Yahir Sevilla. et al. (2014). Homozygous familial hypercholesterolaemia: new insights and guidance for clinicians to improve detection and clinical management. Heart Journal, 35(32), 3404-7221. Reference range: <100 Desirable range <100 mg/dL for primary prevention; ?? <70 mg/dL for patients with CHD or diabetic patients with > or = 2 CHD risk factors. LDL-C is now calculated using the Shon-Sumaya calculation, which is a validated novel method providing better accuracy than the Friedewald equation in the estimation of LDL-C. Shon BOTELLO et al. MARISSA. 2013;310(19): 9877-9477 (http://education.Kaymbu/faq/QKI066) CHOL/HDLC RATIO 8.7(H) <5.0 (calc) [facility] NON-HDL CHOLESTEROL 240(H) <130 mg/dL (calc) [facility] Comment: Non-HDL level > or = 220 [...] DRAW Final Resul t Performing Organization Address [facility]/ZIP Co de Phone Number [facility] [address] [address], [facility] [address] [address] * (ABNORMAL) PAP SMEAR W/HPV (03/20/2020) PAP SMEAR INTERPRETATION ABNORMAL(A) NORMAL [facility] HPV (HUMAN PAPILLOMA) POSITIVE(A) NEGATIVE [facility] HPV TYPE 16 POSITIVE NEGATIVE [facility] HPV TYPE 18 POSITIVE NEGATIVE [facility] Swab 03/20/2020 Impressions [facility] - 03/27/2020 1:18 PM EST ASCUS, high risk HPV positive Provider [place] LAB - NO BLOOD DRAW Final Result Performing Organization Address [facility] Co de Phone Number [facility] [address] [place] [address], * COLPOSCOPY, ABSTRACTED (11/24/2018) 11/24/2018 [facility] - 12/27/2018 10:54 AM EST Polyp (3mm to 5 mm) ??In the ascending colon. (polypectomy). Polyp (5mm) in the transverse colon, (Polypectomy). Polyps (5mm) in the rectum. (Polypectomy). Diverticulitis of the descending colon. Internal and external hemorrhoids. Colon otherwise normal to the terminal ileum including retroflexion. us Provider [place] PROCEDURES Final Result [facility] [address] [facility] [place] [address], * (ABNORMAL) URINE DRUG SCREEN (05/02/2017 11:40 AM EDT) BENZODIAZEPINE, URINE NONE DETECTED ND [facility] Comment: Assay cutoff 200 ng/mL Semi-quantitative assay for screening purposes only. Unconfirmed screening result should not be used for non-medical purposes. *ALTERNATE METHOD CONFIRMATION DONE UPON REQUEST ONLY* COCAINE, URINE POSITIVE(A) ND LIF [facility] Comment: Assay cutoff 300 ng/mL Semi-quantitative assay for screening purposes only. Unconfirmed screening result should not be used for non-medical purposes. *ALTERNATE METHOD CONFIRMATION DONE UPON REQUEST ONLY* AMPHETAMINE, URINE NONE DETECTED ND [facility] Comment: Assay cutoff 1000 ng/mL Semi-quantitative assay for screening purposes only. Unconfirmed screening result should not be used for non-medical purposes. *ALTERNATE METHOD CONFIRMATION DONE UPON REQUEST ONLY* MARIJUANA (THC), URINE NONE DETECTED ND [facility] Comment: Assay cutoff 50 ng/mL Semi-quantitative assay for screening purposes only. Unconfirmed screening result should not be used for non-medical purposes. *ALTERNATE METHOD CONFIRMATION DONE UPON REQUEST ONLY* OPIATES, URINE NONE DETECTED ND [facility] Comment: Assay cutoff 300 ng/mL Semi-quantitative assay for screening purposes only. Unconfirmed screening result should not be used for non-medical purposes. *ALTERNATE METHOD CONFIRMATION DONE UPON REQUEST ONLY* BARBITURATES, URINE NONE DETECTED ND [facility] Comment: Assay cutoff 200 ng/mL Semi-quantitative assay for screening purposes only. Unconfirmed screening result should not be used for non-medical purposes. *ALTERNATE METHOD CONFIRMATION DONE UPON REQUEST ONLY* Urine specimen (specimen) Urine specimen / Unknown 05/02/2017 11:40 AM EDT 05/02/2017 12:13 PM EDT Narrative [facility] - 05/02/2017 4:35 PM EDT [employer] [address] [place] [address] PT ID [id number] ORD# [id number] us Thu Kwan PA-C LAB - NO BLOOD DRAW Final Re [facility] [address] [place] [address], from Last 3 Months or Most Recently Relevant to Health Maintenance Insurance [facility] [employer] Care Teams Marketing Communications Assistant Relationship Specialty Start Date End Date Thu Kwan PA-C [address] [place] [address] PCP - General Internal Medicine 04/30/20
--- OUTSIDE RECORDS SUMMARY | 2024-04-26 13:09 | XMS_ITS | Encounter Summary ---
Author Organization [employer] Address [address] [place] [address] Care Team Providers Care Staffing Coordinator Name Role Phone Thu Clark Primary Care Provider [phone] Reason for Visit * Reason Comments Abdominal Pain Reports abdominal pa in since last night Encounter Details Date Type Department Care Team (Late st Contact Info) Description 04/07/2024 12:23 PM EST - 04/07/2024 5:14 PM EST Emergency [facility] Emergency [address] [place] [address] Luis Eduardo Khoury MD [address] [facility] [address] [place] [address] Other acute gastritis without hemorrhage (Primary Dx) [...] be sent through Care Everywhere. * Gastritis (Panamanian) documented in this encounter Medications at Time [...] Procedure Abnormality Status --------- ------ CBC auto differential[[id number]] Abnormal Final result Please view results for [...] Signed Date: 04/07/2024 16:01 ET Workstation ID: [id number] Transcribed By: Self Edit Transcribed Date: 04/07/2024 15:59 ET Narrative 04/07/2024 4:01 PM EST Exam: US ABDOMEN LIMITED Date of Study: 04/07/2024 3:35 PM CLINICAL INFORMATION: Eval for gallbladder disease TECHNIQUE: Real-time ultrasound scanning of the region of interest performed by the pharmacy technician inpatient. [employer] static images and video clips are submitted [...] of the region of interestperformed by the pharmacy technician inpatient. [employer] static images and video clipsare submitted for [...] Signed Date: 04/07/2024 16:01 ET Workstation ID: [id number] Transcribed By: Self Edit Transcribed Date: 04/07/2024 15:59 ET us Weston BARNETT IMG US PROCEDURES Final Resu lt * (ABNORMAL) CBC auto differential (04/07/2024 11:40 AM EST) [facility] WBC 8.3 4.8 - 10.8 K/mcL LAB HEMETOLOGY METHOD 04/07/2024 12:01 PM [facility] RBC 3.90 3.80 - 4.80 M/mcL LAB HEMETOLOGY METHOD 04/07/2024 12:01 PM [facility] Hemoglobin 11.9 11.5 - 16.0 g/dL LAB HEMETOLOGY METHOD 04/07/2024 12:01 PM [facility] Hematocrit 37.4 35.0 - 47.0 % LAB HEMETOLOGY METHOD 04/07/2024 12:01 PM [facility] MCV 96.4 79.0 - 98.0 FL LAB HEMETOLOGY METHOD 04/07/2024 12:01 PM [facility] MCH 30.7 27.0 - 32.0 pcg LAB HEMETOLOGY METHOD 04/07/2024 12:01 PM [facility] MCHC 31.8(L) 32.0 - 37.0 g/dL LAB HEMETOLOGY METHOD 04/07/2024 12:01 PM [facility] RDW 15.0 11.0 - 15.0 % LAB HEMETOLOGY METHOD 04/07/2024 12:01 PM [facility] Platelets 193 130 - 400 K/mcL LAB HEMETOLOGY METHOD 04/07/2024 12:01 PM [facility] MPV 11.1(H) 7.0 - 11.0 FL LAB HEMETOLOGY METHOD 04/07/2024 12:01 PM [facility] NRBC 0.0 <1.0 % LAB HEMETOLOGY METHOD 04/07/2024 12:01 PM [facility] NRBC Absolute 0.00 <0.10 K/mcL LAB HEMETOLOGY METHOD 04/07/2024 12:01 PM [facility] Neutrophils Relative 47.9 % LAB HEMETOLOGY METHOD 04/07/2024 12:01 PM [facility] Lymphocytes Relative 42.6 % LAB HEMETOLOGY METHOD 04/07/2024 12:01 PM [facility] Monocytes Relative 5.5 % LAB HEMETOLOGY METHOD 04/07/2024 12:01 PM [facility] Eosinophils Relative 3.3 % LAB HEMETOLOGY METHOD 04/07/2024 12:01 PM [facility] Basophils Relative 0.6 % LAB HEMETOLOGY METHOD 04/07/2024 12:01 PM [facility] Immature Granulocytes Relative 0.1 % LAB HEMETOLOGY METHOD 04/07/2024 12:01 PM [facility] Neutrophils Absolute 3.97 1.50 - 7.00 K/mcL LAB HEMETOLOGY METHOD 04/07/2024 12:01 PM [facility] Lymphocytes Absolute 3.53 1.00 - 5.00 K/mcL LAB HEMETOLOGY METHOD 04/07/2024 12:01 PM [facility] Monocytes Absolute 0.46 0.20 - 1.00 K/mcL LAB HEMETOLOGY METHOD 04/07/2024 12:01 PM [facility] Eosinophils Absolute 0.27 0.00 - 0.50 K/mcL LAB HEMETOLOGY METHOD 04/07/2024 12:01 PM [facility] Basophils Absolute 0.05 0.00 - 0.20 K/mcL LAB HEMETOLOGY METHOD 04/07/2024 12:01 PM [facility] Immature Granulocytes Absolute 0.01 0.00 - 0.03 K/mcL LAB HEMETOLOGY METHOD 04/07/2024 12:01 PM EST [facility] Blood Venous blood specimen / Unknown Venipuncture / Unknown 04/07/2024 11:40 AM EST 04/07/2024 11:53 AM EST Luis Eduardo Khoury MD LAB BLOOD ORDERABLES Final Result Performing Organization Address City/[facility]/ZIP Co de Phone Number [facility] [address] [place] [address], [place] [phone] * Lipase (04/07/2024 11:40 AM EST) Lipase 39 13 - 75 unit/L LAB CHEMISTRY METHOD 04/07/2024 12:23 PM [facility] Blood Venous blood specimen / Unknown Venipuncture / Unknown 04/07/2024 11:40 AM EST 04/07/2024 11:53 AM EST Luis Eduardo Khoury MD LAB BLOOD ORDERABLES Final Result Performing Organization Address City/[facility]/ZIP Co de Phone Number [facility] [address] [place] [address], [place] [phone] * (ABNORMAL) Comprehensive metabolic panel (04/07/2024 11:40 AM EST) Sodium 138 133 - 145 mmol/L LAB CHEMISTRY METHOD 04/07/2024 12:25 PM [facility] Potassium 4.6 3.5 - 5.5 mmol/L LAB CHEMISTRY METHOD 04/07/2024 12:25 PM [facility] Chloride 106 96 - 110 mmol/L LAB CHEMISTRY METHOD 04/07/2024 12:25 PM [facility] CO2 30 21 - 32 mmol/L LAB CHEMISTRY METHOD 04/07/2024 12:25 PM [facility] Anion Gap 2(L) 3 - 11 LAB CHEMISTRY METHOD 04/07/2024 12:25 PM [facility] Glucose 97 70 - 100 mg/dL LAB CHEMISTRY METHOD 04/07/2024 12:25 PM [facility] BUN 9 5 - 25 mg/dL LAB CHEMISTRY METHOD 04/07/2024 12:25 PM [facility] Creatinine 0.66 0.50 - 1.10 mg/dL LAB CHEMISTRY METHOD 04/07/2024 12:25 PM [facility] eGFR 98 >=60 mL/min/1. 73m2 LAB CHEMISTRY METHOD 04/07/2024 12:25 PM [facility] Comment:Calculation based on the??Chronic Kidney Disease Epidemiology Collaboration (CKD-EPI) equation refit??without adjustment for race. BUN/Creatinine Ratio 13.6 LAB CHEMISTRY METHOD 04/07/2024 12:25 PM [facility] Calcium 9.2 8.5 - 10.5 mg/dL LAB CHEMISTRY METHOD 04/07/2024 12:25 PM [facility] AST (SGOT) 14 10 - 42 unit/L LAB CHEMISTRY METHOD 04/07/2024 12:25 PM [facility] ALT (SGPT) 22 10 - 60 unit/L LAB CHEMISTRY METHOD 04/07/2024 12:25 PM [facility] Alkaline Phosphatase 124(H) 42 - 121 unit/L LAB CHEMISTRY METHOD 04/07/2024 12:25 PM [facility] Total Protein 7.2 6.0 - 8.0 g/dL LAB CHEMISTRY METHOD 04/07/2024 12:25 PM [facility] Albumin 3.4 3.2 - 5.0 g/dL LAB CHEMISTRY METHOD 04/07/2024 12:25 PM [facility] Total Bilirubin 0.3 0.0 - 1.4 mg/dL LAB CHEMISTRY METHOD 04/07/2024 12:25 PM [facility] Blood Venous blood specimen / Unknown Venipuncture / Unknown 04/07/2024 11:40 AM EST 04/07/2024 11:53 AM EST us Luis Eduardo Khoury MD LAB BLOOD ORDERABLES Final Result [facility] [address] [place] [address], [place] [phone] documented in this encounter Visit Diagnoses Diagnosis [...] ider: Sheri Pradhan [id number] (Stopped - Provider: aKty Villegas RN) documented in this encounter Care Teams Staffing Coordinator Relationship Specialty Start Date End Date Thu Clark PA [facility] [place] [address] PCP - General Physician Retail Wireless Sales Representative 03/18/24 documented as of this encounter
--- OUTSIDE RECORDS SUMMARY | 2024-04-26 13:09 | XMS_ITS | Encounter Summary ---
Author Organization [facility] Address [address] [place] [address] Care Team Providers Care Certified Credit Counselor Name Role Phone Thu Clark PA-C Primary Care Provider [phone] Encounter Details Date Type Department Care Team ([facility] st Contact Info) Description 03/20/2020 Scan Pathology [facility] Primary Care [address] [place] [phone] Thu Clark PA-C [address] [place] [phone] Social History Tobacco Use Types Packs/Day Years [...] documented as of this encounter Care Teams Certified Credit Counselor Relationship Specialty Start Date End Date Thu Clark PA-C [facility] [place] [address] PCP - General Internal Medicine 04/30/20 documented as of this encounter
[2024-04-27 21:42] LABS: Anti DNA DS Antibody <1 IU/mL; Antibody to SS-A Antigen <1.0 NEG AI (<1.0 NEG); Antibody to SS-B Antigen <1.0 NEG AI (<1.0 NEG); Myeloperoxidase Antibody <1.0 AI; Proteinase 3 PR3 Antibodies <1.0 AI; Scleroderma 70 Antibody <1.0 NEG AI (<1.0 NEG)
[2024-04-29 14:38] LABS: Cyclic Citrullinated Peptide <16 UNITS
[2024-04-30 21:34] LABS: Angiotensin Converting Enzyme 82 U/L (9-67)
[2024-05-01 13:08] LABS: Anti Nuclear Antibody Screen POSITIVE (NEGATIVE); Anti Nuclear Antibody Titer 1:40 titer
[2024-05-03 17:53] LABS: Asperg fumigatus Precip Abs NEGATIVE (NEGATIVE); Micropoly faeni Abs NEGATIVE (NEGATIVE); Pigeon serum Abs NEGATIVE (NEGATIVE); Saccharo pora viridis Abs NEGATIVE (NEGATIVE); Thermo candidus Abs NEGATIVE (NEGATIVE); Thermoa vulgaris #1 NEGATIVE (NEGATIVE)
[2024-05-11 11:53] LABS: Immunoglobulin E 30 kU/L (<OR=114)
== END 2024-04-26 09:45 | disposition home or self-care (01) ==
LOC: HO.LAB 09:44
PROVIDERS: PCP Physician Assistant; Visit Provider Hospitalist
DX: J84.9 Interstitial pulmonary disease, unspecified (principal); R91.8 Other nonspecific abnormal finding of lung field; F17.200 Nicotine dependence, unspecified, uncomplicated; R07.81 Pleurodynia; J44.0 Chronic obstructive pulmonary disease with (acute) lower respiratory infection
CPT/HCPCS: 36415; 80048; 82164; 82785; 85025; 85379; 85652; 86021; 86038; 86039; 86200; 86225; 86235; 86331; 86606; 86609; 99212

== ENCOUNTER 2024-08-28 09:38 | Outpatient (AMB) | payer MEDICAID, SELFPAY ==
[2024-08-28 09:41] VITALS: BP 136/74; PULSE 61; O2SAT 98; BMI 31.9
--- NOTE | 2024-08-28 09:41 | MHC.OFFVIS ---
Vital Signs 08/28/24 09:41 Height 5 ft 1 in Weight 168 lb 10.458 oz BMI 31.9 BP 136/74 Blood Pressure Location Lt brachial Position Sitting Pulse 61 Pulse Source Pulse Oximeter Pulse Oximetry (%) 98 Oxygen Delivery Method Room Air Intake Visit Reasons: Asthma Allergies No Known Allergies (No Known Allergies*) Allergy (Verified 08/28/24 09:50) HPI Comments Details: The patient is a 64 year-old woman with a long history of tobacco dependency and COPD who apparently has been complaining of worsening dyspnea on exertion and cough. The patient states that recently she did undergo a CT scan of the chest as per the lung cancer screening program because she does have pulmonary nodules. She did follow-up with her primary care doctor who told her that if there were other changes suggesting of interstitial lung disease on the CT scan. Therefore she was referred to Pulmonary. On further questioning the site smoking she denies any other recreational drugs. She denies being exposed to any farm work or birds. The patient denies any mold in the house. She has tried to quit smoking but has been very hard for her. The patient is willing to try the Nicotrol inhaler to see if we can get her away from the smoke That is resulting in moles of the injury to her lungs In airways. I was able to personally review the CAT scans from 2018 and also 2020 with the patient. Back in 2018 she also had interstitial changes primarily in the periphery of her lungs bilaterally with some evidence of honeycombing in the periphery which is concerning. It appears to be also involving the bases but not as predominant. Does have a subtle appearance of usual interstitial pneumonia (UIP) versus a chronic eosinophilic pneumonia. The patient denies any rashes or any joint discomfort to suggest a connective tissue disease. However, this needs to be continued in the differential. I did also review her CT scan from 2020 demonstrating some interval progression of the subpleural process suggesting a progressive type of interstitial lung disease. Smoking can also result in pulmonary fibrosis the patient is aware that and she is motivated to quitting. She has minimal evidence of emphysema also noted. 01/22/2021 the patient is here for a pulmonary follow-up visit. Overall she is doing well from a respiratory status. She denies any worsening shortness of breath or any chest discomfort. She did undergo blood work recently we did reviewed. Her evaluation for interstitial lung disease was negative for any connective tissue conditions to hypersensitivity conditions. The patient also underwent pulmonary function studies demonstrating no obstructive nor restrictive ventilatory defects. Although, her total lung capacity was low normal. She however had a moderate diffusion impairment. Explained to the patient that will be need to continue monitoring closely for any progression. She is to call if any worsening respiratory symptoms arise. She is due for repeat CT scan of the chest based on the lung cancer screening program and July of 2021. as far as other potential triggers we did talk about reflux disease which she has. The patient will work on her reflux diet and will try to sleep elevated. In regards of her asthma the patient did have 1 episode where she woke up short of breath and chest tightness. She did get relief with her rescue inhaler. I do think that based on her symptoms is reasonable to start her on a maintenance inhaler. 08/18/2021 the patient is here for a pulmonary follow-up visit. Overall the patient continues to have shortness of breath and cough. Her symptoms have been getting worse but primarily because she ran out of her medication. Will make sure that she has all her medications available to avoid any rebound symptoms. In the meantime she has not heard from [facility] regarding her lung cancer screening program CT scan. We did review her CT scan that she had back in July 2020 with small pulmonary nodules but more concerning was a degree of interstitial lung disease as she has bilaterally in the periphery more in the mid lung area. Next week consistent with an UIP pattern IPF. But, still concerning. The patient did have a connective tissue disease workup in addition to hypersensitivity pneumonitis panel and workup was completely negative. Explained to the patient that smoking related interstitial lung conditions are indeed in differential. Therefore we need to work cardiac getting her to quit altogether. The patient also understands that if her interstitial lung disease worsens she may need to undergo a biopsy to further delineate the etiology. In the meantime the patient will be traveling abroad with family. She will work on her smoking cessation and hoping that she can quit we can repeat her CT scan in October to see if we see any improvement. 07/23/2022 the patient is here for a pulmonary follow-up visit. She continues to have dyspnea on exertion. Mild to moderate severity. Does get better with rest. She still struggling with her smoking. She understands that with her underlying interstitial lung disease it is likely the smoking will continue to make it worse. We did review her CT scan of the chest that she had in October 2021 again demonstrating the reticular changes consistent with pulmonary fibrosis primarily at the bases. This appears to be not UIP pattern. In addition to that though she does have some evidence of ground-glass opacities in the upper lung zones. The patient was supposed to start Wellbutrin but she never got at the pharmacy. However, she is still smoking and likely more. 10/26/2022 the patient is here for a pulmonary follow-up visit. She recently returned from [place]. While she was there she developed significant episode of respiratory distress. she was evaluated and treated. She is feeling better but not at her baseline. She is also complaining of back discomfort. Also is pleuritic in nature. Moderate severity. The patient unfortunately continues to smoke cigarettes. She understands that were pulmonary fibrosis and interstitial lung disease smoking is extremely harmful for her. Therefore, will go ahead and start her on Chantix. We did talk about the risks and benefits of the medication. She knows to monitor for depression. When she completes the starter pack she will call and I will send a regular maintenance dose. In the meantime her last CT scan last year October 2021 demonstrated significant pulmonary fibrosis very suggestive of UIP like pattern. Unfortunately this could be progressive disease. If indeed she does have probable UIP demonstrating any better progressive component of worsening lung capacity will consider antifibrotic agents for her. She will continue with the current respiratory therapy. On examination she also has some wheezing from her recent exacerbation therefore will put on small dose of prednisone to see if this provides her some relief. 12/10/2022 the patient is here for a pulmonary follow-up visit. Overall the patient has been doing better from the asthma standpoint. Denies any significant wheezing. She is working her smoking. She said hard time with. The patient does have dyspnea on exertion. Typically mild severity. We did review her recent CT scan of the chest. Personally by me. It appears that her interstitial lung disease has not significantly changed from October 2021 which is reassuring. No need for antifibrotic agents at this time. Based on the fact that she is feeling better will hold off on the PFTs. Will have her come back in 6 months and at that point to the pulmonary function studies to see if there is any progressive disease. She does have evidence of pulmonary fibrosis and at this point without a clear etiology. If indeed we see any progression we would need to consider the possibility of IPF and would at that point start antifibrotic agents. She will continue with current respiratory therapy at this time. Will follow-up in 6 months after her PFTs. 08/09/2023 the patient is here for a pulmonary follow-up visit. The patient unfortunately continues to smoke cigarettes. She has been struggling. She did not try the Chantix. She has been on the Wellbutrin however. The patient did not have her PFTs done. We again looked at her CT scan demonstrating worsening interstitial lung disease suggesting of a UIP pattern. This could be concerning. Will go ahead and repeat her CT scan sometime in the fall of 2023. Will give her enough time to quit smoking. I did send her the nicotine patch and she can not have the breakthrough nicotine gum. The patient also will continue her respiratory medications. She has responded well to the azithromycin 3 times a week for chronic bronchitis will continue that for now. She did not have her PFTs will have those done closer to her next appointment. If she has any worsening symptoms she will call for an earlier assessment. 12/15/2023 the patient is here for pulmonary sick visit. She started developing worsening respiratory symptoms the last couple days. Chest congestion. Moderate severity. Phlegm is yellow. Also having some chest tightness and some wheezing. She has been using her inhalers. She does have a nebulizer better solution is old. On exam she does have wheezing and rhonchi throughout. The patient is actively coughing. Will go ahead and treat her for bout of bronchitis and an asthma exacerbation. She did have a CT scan of the chest over the summer. Been officially read yet. I did review it. The interstitial changes appear to be stable. Will await the final report. The patient will return in 4 6 months. If she has any worsening symptoms she can call for an earlier assessment. 04/26/2024 the patient is here for a pulmonary follow-up visit. The patient is complaining of some difficulty breathing and also pleuritic chest pain primarily the left side. Denies any wheezing denies any congested cough. We did again review her CT scan that she had back in over the summer demonstrating the interstitial lung disease primarily in the periphery. Likely that she is developing some degree of pleuritis. Her blood work was all negative but that was back in 2020. Will go ahead and repeat blood work specially with her arthralgias and myalgias. I wonder if she has a connective tissue disease related interstitial lung disease. For now will go ahead and started him small dose of prednisone to see if we can get some relief her symptoms. We did review her recent CT chest 04/25/2024 personally reviewed by me, demonstrating stable periphereal interatitial disease with areas of honeycombing. Will go ahead and repeat all the blood work and just see if we can find a secondary cause. She may be a good candidate for often see worsening disease. We did talk about potential biopsy. In the meantime, the cigarette smoking is a potential risk factors for the ILD. She is willing to try Chantix at this time. Based on her stability of the ILD, no need for OFEV at this time. 08/28/2024 the patient is here for pulmonary follow-up visit. Since we last spoke she started developing some significant back and radicular pain. She actually went to the ER at [facility] and had a full workup. Did not have those results. The patient was subsequently discharged. She is still has the discomfort although is better. In addition to that she has does have productive cough. Chest congestion. Moderate severity. The mucus tends to be on the clear side. She does continues to smoke cigarettes unfortunately. She understands that this is worsened both the chronic bronchitis and also the interstitial lung disease. Her last CT scan was back in April 2024 with no significant changes in her interstitial lung disease. Will go ahead and have her come back in 3 4 months with pulmonary function studies. In the meantime she is going to quit smoking. Will go ahead and start her on azithromycin 3 times a week for chronic bronchitis. And also she can try some gabapentin for sleep to see if this helps her with her neuropathic pain and also her insomnia. Will follow-up in 4 months after her PFTs that if any issues arise she can always call for further recommendations. [facility] Medical History (Updated 03/16/24 @ 22:21 by Coleman Freitas MD) Pleuritic chest pain COPD (chronic obstructive pulmonary disease) Asthma Pulmonary nodules Tobacco dependence ILD (interstitial lung disease) Social History Patient Tobacco Use Status: Current everyday Tobacco user Tobacco use type: Cigarette Cigarettes Per Day: 2 Years Smoked: Since 14 years old Review of Systems Const Denies night sweats ENT Denies change in voice, Denies lip swelling, Denies mouth pain, Reports nasal congestion, Reports nasal discharge and Denies tongue swelling Card Reports chest pain and Reports dyspnea on exertion Resp Reports chest congestion, Reports cough, Reports pain on inspiration, Reports pain with cough and Reports dyspnea on exertion GI Reports dyspepsia and Reports heartburn Musc Reports back pain and Reports myalgias Neuro Denies Neuro-related abnormal movements Psych Denies no additional complaints Hilton/Lymph Denies easy bleeding and Denies lymphadenopathy Aller/Immun Denies lip swelling and Denies tongue swelling Physical Exam Vital Signs: Last Vital Signs Pulse 61 08/28/24 09:41 BP 136/74 08/28/24 09:41 Pulse Ox 98 08/28/24 09:41 Oxygen Delivery Method Room Air 08/28/24 09:41 BMI result Body Mass Index 31.9 Const General: alert HEENT General nose exam: Abnormal external nose present and Nasal discharge present Eyes Pupils: Equal, round and reactive pupils present Neck Neck: Yes normal visual inspection, Yes full ROM and Yes no lymphadenopathy Chest Chest palpation & inspection: normal inspection of the chest Resp Auscultation: rales, no wheezes and diminished lung sounds Cardio Rate: regular rate Rhythm: regular rhythm Heart sounds: S1 normal heart sound present and S2 normal heart sound present GI Palpation (GI): Soft to palpation and nontender Auscultation: normal bowel sounds General: Yes no CVA tenderness Back/Spine/Pelvis Back: no CVA tenderness Skin General skin exam: rashes and/or lesions noted Neuro Cranial nerves: Yes Equal, round and reactive pupils present Assessment & Plan Assessment & Plan (1) COPD (chronic obstructive pulmonary disease): Code(s): J44.9 - Chronic obstructive pulmonary disease, unspecified Category: Medical Qualifiers: COPD type: COPD with acute lower respiratory infection Qualified Code(s): J44.0 - Chronic obstructive pulmonary disease with (acute) lower respiratory infection (2) ILD (interstitial lung disease): Code(s): J84.9 - Interstitial pulmonary disease, unspecified Category: Medical (3) Tobacco dependence: Code(s): F17.200 - Nicotine dependence, unspecified, uncomplicated Category: Medical (4) Pulmonary nodules: Code(s): R91.8 - Other nonspecific abnormal finding of lung field Category: Medical (5) Pleuritic chest pain: Code(s): R07.81 - Pleurodynia Category: Medical Plan nebulizer 2 times a day continue Symbicort start azithromycin MWF x 6-8 weeks BRIONNA as needed bloodwork Tobacco cessation: needs to quit No OFEV at this time PFTs Gabapentin PM F/U 4-6 months Orders: Orders PFT pulmonary function test 3 Months J44.0 - Chronic obstructive pulmonary disease with (acute) lower respiratory infection Medications: New gabapentin 300 mg PO BEDTIME 30 caps 6RF 30 days azithromycin Take 1 tablet on Tuesday/Tuesday/Tuesday 250 mg PO 3XW 12 tabs 1RF 28 days K21.9 - Gastro-esophageal reflux disease without esophagitis Coding Level of Care Code Est Pt Level 4 (59965) Complex EM visit Add On G2211 Diagnoses Chronic obstructive pulmonary disease with acute lower respiratory infection J44.0 COPD type: COPD with acute lower respiratory infection ILD (interstitial lung disease) J84.9 Tobacco dependence F17.200 Pulmonary nodules R91.8 Pleuritic chest pain R07.81 Time Spent (min) 16
--- OUTSIDE RECORDS SUMMARY | 2024-08-28 10:09 | XMS_ITS | Clinical Summary ---
Author Organization [facility] Address [address] [place] [address] Phone Care Team Providers Care Turbine Assembler Name Role Phone Thu Clark Primary Care Provider [phone] Allergies No known active allergies Medications No known medications Encounters Date Type Department Care Team Description 08/07/2024 11:09 PM EDT - 08/08/2024 6:58 AM EDT Emergency [facility] Emergency [address] [place] [address] Brett Coffman MD Acute right-sided low back pain without sciatica (Primary Dx); Generalized abdominal pain Discharge Disposition: Home or Self Care from [...] Sign Reading Time Taken Comments Blood Pressure 120/78 08/08/2024 5:31 AM EDT Pulse 64 08/08/2024 5:31 AM EDT Temperature 36.9 C (98.4 F) 08/08/2024 5:31 AM EDT Respiratory Rate 16 08/08/2024 5:31 AM EDT Oxygen Saturation 97% 08/08/2024 5:31 AM EDT Inhaled Oxygen Concentration - - Weight 73.5 kg (162 lb) 04/07/2024 10:32 AM EST Height 157.5 cm (5' 2 ) 04/07/2024 10:32 AM EST Body Mass Index 29.63 04/07/2024 10:32 AM EST Plan of Treatment Health Maintenance Due Date Last Done Comments Breast Cancer Screening 1960 Pneumococcal Vaccine: 50+ Years (1 of 2 - PCV) 02/21/1979 Cervical Cancer Screening: Pap Smear 02/21/1981 Hepatitis B Vaccines (2 of 3 - 19+ 3-dose series) 12/01/2017 11/03/2017 RSV Immunization Adult Patients (1 - Risk 60-74 years 1-dose series) 2020 Zoster Vaccines (2 of 2) 03/26/2020 01/30/2020 Colorectal Cancer Screening: Colonoscopy 01/24/2022 HIV Screening 01/24/2022 Social Influencers of Health Screening 01/24/2022 COVID-19 Vaccine ( - season) 2023 03/18/2021, 07/02/2020, 06/04/2020 Influenza Vaccine (#1) 2024 , 01/30/2020, 01/03/2019 DTaP,Tdap,and Td Vaccines (2 - Td or Tdap) 06/14/2025 06/15/2015 Depression Screening 06/18/2025 06/18/2024 Cholesterol Screening (Lipid Panel) 11/28/2028 11/29/2023, 11/29/2023, [...] age to complete this topic Meningococcal B Vaccine Aged Out No l onger eligible based on patient's age to complete this topic RSV Immunization Patients Under 20 months Aged Out No longer eligible based on patient's age to complete this topic Varicella Vaccines Aged Out No longer eligible based on patient's age to complete this topic Procedures Procedure Name Priority Date/Time Associated Diagnosis Comments ECG ANNOTATED 08/09/2024 COOPER URINE CULTURE TUBE STAT 08/08/2024 1:34 AM EDT URINALYSIS WITH REFLEX MICROSCOPIC AND CULTURE STAT 08/08/2024 1:34 AM EDT URINALYSIS WITH REFLEX MICROSCOPIC AND CULTURE STAT 08/08/2024 1:[address] ABDOMEN PELVIS W CONTRAST STAT 08/08/2024 12:50 AM EDT XR CHEST 2 VIEWS STAT 08/07/2024 7:15 PM EDT ECG 12-LEAD STAT 08/07/2024 7:07 PM EDT TROPONIN I HIGH SENSITIVITY STAT 08/07/2024 7:05 PM EDT CBC WITH AUTO DIFFERENTIAL STAT 08/07/2024 4:28 PM EDT B-TYPE NATRIURETIC PEPTIDE STAT 08/07/2024 4:28 PM EDT MAGNESIUM STAT 08/07/2024 4:28 PM EDT LIPASE STAT 08/07/2024 4:28 PM EDT COMPREHENSIVE METABOLIC PANEL STAT 08/07/2024 4:28 PM EDT CBC AND DIFFERENTIAL STAT 08/07/2024 4:28 PM EDT TROPONIN I HIGH SENSITIVITY STAT 08/07/2024 4:28 PM EDT ECG 12-LEAD STAT 08/07/2024 4:10 PM EDT from Last 3 Months Results * ECG-Annotated (08/09/2024) us Provider Onbase MD ECG ORDERABLES Final Result * (ABNORMAL) Urinalysis with reflex microscopic and culture (08/08/2024 1:34 AM EDT) Pathologist [facility] Specific [place] Urine >1.045(H) 1.003 - 1.030 LAB URINALYSIS - AUTOMATED METHOD 08/08/2024 2:04 AM [facility] pH, Urine 6.0 5.0 - 8.0 pH LAB URINALYSIS - AUTOMATED METHOD 08/08/2024 2:04 AM [facility] Leukocytes, Urine Negative Negative LAB URINALYSIS - AUTOMATED METHOD 08/08/2024 2:04 AM [facility] Nitrite, Urine Negative Negative LAB URINALYSIS - AUTOMATED METHOD 08/08/2024 2:04 AM [facility] Protein, Urine 30(A) <=Trace mg/dL LAB URINALYSIS - AUTOMATED METHOD 08/08/2024 2:04 AM [facility] Glucose, Urine Negative Negative mg/dL LAB URINALYSIS - AUTOMATED METHOD 08/08/2024 2:04 AM [facility] Ketones, Urine Negative Negative mg/dL LAB URINALYSIS - AUTOMATED METHOD 08/08/2024 2:04 AM [facility] Urobilinogen , Urine 1.0 0.2 - 1.0 mg/dL LAB URINALYSIS - AUTOMATED METHOD 08/08/2024 2:04 AM [facility] Bilirubin, Urine Negative Negative LAB URINALYSIS - AUTOMATED METHOD 08/08/2024 2:04 AM [facility] Blood, Urine Negative Negative LAB URINALYSIS - AUTOMATED METHOD 08/08/2024 2:04 AM EDT [facility] RBC, Urine 2.9 0 - 4 /HPF LAB URINALYSIS - AUTOMATED METHOD 08/08/2024 2:04 AM EDT [facility] WBC, Urine 3.9 0 - 4 /HPF LAB URINALYSIS - AUTOMATED METHOD 08/08/2024 2:04 AM EDT [facility] Squamous Epithelial, Urine 50 0 - 60 /LPF LAB URINALYSIS - AUTOMATED METHOD 08/08/2024 2:04 AM EDT [facility] Bacteria, Urine Negative Negative /HPF LAB URINALYSIS - AUTOMATED METHOD 08/08/2024 2:04 AM EDT [facility] Hyaline Casts, Urine 0.4 0 - 3 /LPF LAB URINALYSIS - AUTOMATED METHOD 08/08/2024 2:04 AM EDT [facility] Urine Urine specimen obtained by clean catch procedure / Unknown Non-blood Collection / Unknown 08/08/2024 1:34 AM EDT 08/08/2024 1:54 AM EDT us Brett Coffman MD LAB URINE ORDERABLES Final Resu lt Performing Organization Address [facility] Co de Phone Number [facility] [address] [place] [address], [place] [phone] * Cooper urine culture tube (08/08/2024 1:34 AM EDT) Extra Tube Hold for add-ons. 08/08/2024 3:02 AM EDT [facility] Comment:Auto resulted. Urine Urine specimen obtained by clean catch procedure / Unknown Non-blood Collection / Unknown 08/08/2024 1:34 AM EDT 08/08/2024 1:54 AM EDT us Brett Coffman MD LAB URINE ORDERABLES Final Resu lt Performing Organization Address City/[facility]/ZIP Co de Phone Number [facility] [address] [place] [address], * CT Abdomen Pelvis w Contrast (08/08/2024 12:50 AM EDT) Anatomical Region Laterality Modality Body Computed Tomogra phy 08/08/2024 1:41 AM EDT Impressions 08/08/2024 1:41 AM EDT 1. No evidence of diverticulitis. 2. Moderate to large amount of stool without obstruction. 3. Additional nonacute findings as above. This document has been electronically signed by: Sergio Snyder MD on 08/08/2024 01:41:31 Narrative 08/08/2024 1:41 AM EDT INDICATION: Diverticulitis suspected CT abdomen and pelvis with contrast Comparison: None provided Findings: Mild bronchiectasis at the lung bases. Mild dependent atelectasis both lungs. Cardiomegaly. 5 mm nonobstructing right inferior renal caliceal stone. Tiny left superior renal parenchymal cyst. Gallbladder and solid organs otherwise unremarkable. No bowel obstruction, pneumoperitoneum, or pneumatosis. Mesenteric vessels patent. Moderate to large amount of stool. Normal appendix. Uterus and ovaries within normal limits. Mild distal colonic diverticulosis without diverticulitis. No acute fracture. Procedure Note Sergio Snyder MD - 08/08/2024 INDICATION: Diverticulitis suspected CT abdomen and pelvis with contrast Comparison: None provided Findings: Mild bronchiectasis at the lung bases. Mild dependent atelectasis both lungs. Cardiomegaly. 5 mm nonobstructing right inferior renal caliceal stone. Tiny left superior renal parenchymal cyst. Gallbladder and solid organs otherwise unremarkable. No bowel obstruction, pneumoperitoneum, or pneumatosis. Mesenteric vessels patent. Moderate to large amount of stool. Normal appendix. Uterus and ovaries within normal limits. Mild distal colonic diverticulosis without diverticulitis. No acute fracture. IMPRESSION: 1. No evidence of diverticulitis. 2. Moderate to large amount of stool without obstruction. 3. Additional nonacute findings as above. This document has been electronically signed by: Sergio Newberry MD on 08/08/2024 01:41:31 Brett Coffman MD IMG CT PROCEDURES Final Result * XR Chest 2 Views (08/07/2024 7:15 PM EDT) Anatomical Region Laterality Modality Body Radiographic Judi ging 08/08/2024 8:50 AM EDT Impressions 08/08/2024 8:52 AM EDT Impression: 1. No acute infiltrate identified. 2. Interstitial pulmonary fibrosis. Telerad ERICKA ([id number]) -------- FINAL REPORT -------- Dictated By: Blanca Epperson Dictated Date: 08/08/2024 08:50 ET Assigned Physician: Blanca Epperson Reviewed and Electronically Signed By: Blanca Epperson Signed Date: 08/08/2024 08:52 ET Workstation ID: [id number] Transcribed By: Self Edit Transcribed Date: 08/08/2024 08:50 ET Narrative 08/08/2024 8:52 AM EDT History: Chest pain. Comparison: 12/12/23, thoracic CT 02/18/17 Findings: PA and lateral views. The cardiac silhouette is borderline enlarged. Hilar contours and pulmonary vascularity are within normal limits. Reticulation is seen within the lung periphery bilaterally, favoring the lower lungs, unchanged, consistent with interstitial pulmonary fibrosis, with CT correlation. No acute infiltrate is seen. A 4 mm calcified nodule in the left lower lobe is consistent with a healed granuloma, also noted previously. The costophrenic angles are sharp. The regional skeleton is intact. Procedure Note Blanca Epperson MD - 08/08/2024 History: Chest pain. Comparison: 12/12/23, thoracic CT 02/18/17 Findings: PA and lateral views. The cardiac silhouette is borderline enlarged. Hilarcontours and pulmonary vascularity are within normal limits. Reticulationis seen within the lung periphery bilaterally, favoring the lower lungs,unchanged, consistent with interstitial pulmonary fibrosis, with CTcorrelation. No acute infiltrate is seen. A 4 mm calcified nodule in theleft lower lobe is consistent with a healed granuloma, also notedpreviously. The costophrenic angles are sharp. The regional skeleton is intact. IMPRESSION: Impression: 1. No acute infiltrate identified. 2. Interstitial pulmonary fibrosis. Telerad ERICKA ([id number]) -------- FINAL REPORT -------- Dictated By: Blanca Epperson Dictated Date: 08/08/2024 08:50 ET Assigned Physician: Blanca Epperson Reviewed and Electronically Signed By: Blanca Epperson Signed Date: 08/08/2024 08:52 ET Workstation ID: [id number] Transcribed By: Self Edit Transcribed Date: 08/08/2024 08:50 ET Brett Coffman MD IMG XR PROCEDURES Final Result * ECG 12 lead (08/07/2024 7:07 PM EDT) Only the most recent of2 resultswithin the time period is included. Pathologist [facility] Ventricular Rate ECG 63 BPM GEMUSE Atrial Rate 63 BPM GEMUSE P-R Interval 158 ms GEMUSE QRS Duration 84 ms GEMUSE Q-T Interval 406 ms GEMUSE QTc 415 ms GEMUSE P Wave [place] 22 degrees GEMUSE R [place] 19 degrees GEMUSE T [place] 28 degrees GEMUSE ECG Interpretation Normal sinus rhythm Normal ECG When compared with ECG of 07-AUG-2024 16:10, No significant change was found Confirmed by SHANIQUE FERRARI ([id number]) on 08/09/2024 1:27:02 PM GEMUSE 08/07/2024 7:07 PM EDT 08/09/2024 1:27 PM EDT us Brett Coffman MD ECG ORDERABLES Final Result GEMUSE * Troponin I high sensitivity (08/07/2024 7:05 PM EDT) Only the most recent of2 resultswithin the time period is included. Pathologist [facility] High Sensitivity Troponin I <3 <=54 ng/L LAB CHEMISTRY METHOD 08/07/2024 8:05 PM EDT [facility] Blood Venous blood specimen / Unknown Venipuncture / Unknown 08/07/2024 7:05 PM EDT 08/07/2024 7:14 PM EDT Narrative [facility] - 08/07/2024 8:05 PM EDT High levels of biotin in samples may falsely decrease hsTroponin values. Use caution when interpreting hsTroponin results in patients taking biotin who exhibit renal impairment (eGFR <60) or in patients taking more than 20 mg/day of biotin. us Brett Coffman MD LAB BLOOD ORDERABLES Final Resu lt [facility] [address] [place] [address], [place] [phone] * (ABNORMAL) CBC auto differential (08/07/2024 4:28 PM EDT) WBC 9.9 4.8 - 10.8 K/mcL LAB HEMETOLOGY METHOD 08/07/2024 5:12 PM EDT [facility] RBC 4.00 3.80 - 4.80 M/mcL LAB HEMETOLOGY METHOD 08/07/2024 5:12 PM EDT [facility] Hemoglobin 11.8 11.5 - 16.0 g/dL LAB HEMETOLOGY METHOD 08/07/2024 5:12 PM EDT [facility] Hematocrit 38.0 35.0 - 47.0 % LAB HEMETOLOGY METHOD 08/07/2024 5:12 PM EDT [facility] MCV 95.0 79.0 - 98.0 FL LAB HEMETOLOGY METHOD 08/07/2024 5:12 PM EDT [facility] MCH 29.5 27.0 - 32.0 pcg LAB HEMETOLOGY METHOD 08/07/2024 5:12 PM EDT [facility] MCHC 31.1(L) 32.0 - 37.0 g/dL LAB HEMETOLOGY METHOD 08/07/2024 5:12 PM EDT [facility] RDW 14.6 11.0 - 15.0 % LAB HEMETOLOGY METHOD 08/07/2024 5:12 PM EDT [facility] Platelets 205 130 - 400 K/mcL LAB HEMETOLOGY METHOD 08/07/2024 5:12 PM [facility] MPV 11.7(H) 7.0 - 11.0 FL LAB HEMETOLOGY METHOD [facility]07[facility]24 [facility] NRBC 0.0 <1.0 % LAB HEMETOLOGY METHOD 08/07/2024 5:12 PM EDT [facility] NRBC Absolute 0.00 <0.10 K/mcL LAB HEMETOLOGY METHOD 08/07/2024 5:12 PM [facility] Neutrophils Relative 49.1 % LAB HEMETOLOGY METHOD 08/07/2024 5:12 PM [facility] Lymphocytes Relative 41.0 % LAB HEMETOLOGY METHOD 08/07/2024 5:12 PM [facility] Monocytes Relative 5.8 % LAB HEMETOLOGY METHOD 08/07/2024 5:12 PM [facility] Eosinophils Relative 3.0 % LAB HEMETOLOGY METHOD 08/07/2024 5:12 PM [facility] Basophils Relative 0.7 % LAB HEMETOLOGY METHOD 08/07/2024 5:12 PM [facility] Immature Granulocytes Relative 0.4 % LAB HEMETOLOGY METHOD [facility]/07[facility]2024 5[facility] Neutrophils Absolute 4.86 1.50 - 7.00 K/mcL LAB HEMETOLOGY METHOD 08/07/2024 5:12 [facility] Lymphocytes Absolute 4.05 1.00 - 5.00 K/mcL LAB HEMETOLOGY METHOD 08/07/2024 5:12 [facility] Monocytes Absolute 0.57 0.20 - 1.00 K/mcL LAB HEMETOLOGY METHOD 08/07/2024 5:12 PM EDT [facility] Eosinophils Absolute 0.30 0.00 - 0.50 K/[facility] LAB HEMETOLOGY METHOD 08/07/2024 5:12 PM EDT [facility] Basophils Absolute 0.07 0.00 - 0.20 K/[facility] LAB HEMETOLOGY METHOD 08/07/2024 5:12 PM EDT [facility] Immature Granulocytes Absolute 0.04(H) 0.00 - 0.03 K/[facility] LAB HEMETOLOGY METHOD 08/07/2024 5:12 PM EDT [facility] Blood Venous blood specimen / Unknown Venipuncture / Unknown 08/07/2024 4:28 PM EDT 08/07/2024 5:04 PM EDT us Brett Coffman MD LAB BLOOD ORDERABLES Final Resu lt Performing Organization Address City/[facility]/ZIP Co de Phone Number [facility] [address] [place] [address], [place] [phone] * B-type natriuretic peptide (08/07/2024 4:28 PM EDT) [facility] BNP 6 <=100 pcg/mL LAB CHEMISTRY METHOD 08/07/2024 5:42 PM EDT [facility] Blood Venous blood specimen / Unknown Venipuncture / Unknown 08/07/2024 4:28 PM EDT 08/07/2024 5:04 PM EDT us Brett Coffman MD LAB BLOOD ORDERABLES Final Resu lt [facility] [address] [place] [address], [place] [phone] * Magnesium (08/07/2024 4:28 PM EDT) [facility] Magnesium 2.0 1.9 - 2.6 mg/dL LAB CHEMISTRY METHOD 08/07/2024 5:41 PM EDT [facility] Blood Venous blood specimen / Unknown Venipuncture / Unknown 08/07/2024 4:28 PM EDT 08/07/2024 5:04 PM EDT us Brett Coffman MD LAB BLOOD ORDERABLES Final Resu lt Performing Organization Address [facility]/ZIP Co de Phone Number [facility] [address] [place] [address], [place] [phone] * Lipase (08/07/2024 4:28 PM EDT) [facility] Lipase 44 13 - 75 unit/L LAB CHEMISTRY METHOD 08/07/2024 5:41 PM EDT [facility] Blood Venous blood specimen / Unknown Venipuncture / Unknown 08/07/2024 4:28 PM EDT 08/07/2024 5:04 PM EDT us Brett Coffman MD LAB BLOOD ORDERABLES Final Resu lt Performing Organization Address [facility] Co de Phone Number [facility] [address] [place] [address], [place] [phone] * (ABNORMAL) Comprehensive metabolic panel (08/07/2024 4:28 PM EDT) [facility] Sodium 138 133 - 145 mmol/L LAB CHEMISTRY METHOD 08/07/2024 5:56 PM EDT [facility] Potassium 3.8 3.5 - 5.5 mmol/L LAB CHEMISTRY METHOD 08/07/2024 5:56 PM EDT [facility] Chloride 106 96 - 110 mmol/L LAB CHEMISTRY METHOD 08/07/2024 5:56 PM EDT [facility] CO2 26 21 - 32 mmol/L LAB CHEMISTRY METHOD 08/07/2024 5:56 PM [facility] Anion Gap 6 3 - 11 LAB CHEMISTRY METHOD 08/07/2024 5:56 PM [facility] Glucose 129(H) 70 - 100 mg/dL LAB CHEMISTRY METHOD 08/07/2024 5:56 PM [facility] BUN 14 5 - 25 mg/dL LAB CHEMISTRY METHOD 08/07/2024 5:56 PM [facility] Creatinine 0.80 0.50 - 1.10 mg/dL LAB CHEMISTRY METHOD 08/07/2024 5:56 PM [facility] eGFR 82 >=60 mL/min/1. 73m2 LAB CHEMISTRY METHOD 08/07/2024 5:56 PM [facility] Comment:Calculation based on the Chronic Kidney Disease Epidemiology Collaboration (CKD-EPI) equation refit without adjustment for race. BUN/Creatinine Ratio 17.5 LAB CHEMISTRY METHOD 08/07/2024 5:56 PM [facility] Calcium 8.9 8.5 - 10.5 mg/dL LAB CHEMISTRY METHOD 08/07/2024 5:56 PM [facility] AST (SGOT) 15 10 - 42 unit/L LAB CHEMISTRY METHOD 08/07/2024 5:56 PM [facility] ALT (SGPT) 24 10 - 60 unit/L LAB CHEMISTRY METHOD 08/07/2024 5:56 PM [facility] Alkaline Phosphatase 128(H) 42 - 121 unit/L LAB CHEMISTRY METHOD 08/07/2024 5:56 PM [facility] Total Protein 6.9 6.0 - 8.0 g/dL LAB CHEMISTRY METHOD 08/07/2024 5:56 PM [facility] Albumin 3.4 3.2 - 5.0 g/dL LAB CHEMISTRY METHOD 08/07/2024 5:56 PM [facility] Total Bilirubin 0.2 0.0 - 1.4 mg/dL LAB CHEMISTRY METHOD 08/07/2024 5:56 PM EDT [facility] Blood Venous blood specimen / Unknown Venipuncture / Unknown 08/07/2024 4:28 PM EDT 08/07/2024 5:04 PM EDT us Scot A Augustus CORONADO LAB BLOOD ORDERABLES Final Resu lt [facility] [address] [place] [address], [place] [phone] from Last 3 Months Insurance MEDICA[place] - [place] Care Teams Turbine Assembler Relationship Specialty Start Date End Date Thu Clark PA [address] [place] [phone] PCP - General Physician Sanding Machine Tender Automatic 03/18/24
--- OUTSIDE RECORDS SUMMARY | 2024-08-28 10:09 | XMS_ITS | Patient Health Record ---
Author Organization [facility] Address [address] [place], [place] [id number] Care Team Providers Care Shrimp Peeler Name Role Phone [facility] Primary Care Provi isaias Unavailable Jose C Acosta Unavailable [phone] Reason For Referral No Information Plan Of Treatment No Information Insurance Providers Payer Name Payer Address Payer Phone Subscriber Number Group Number Insured Name Patient Relationship to Insured Coverage Start Date Coverage End Date [place] Part [place] [employer] [address] [place] [address] [id number] Carol Alcaraz Self - patient is the insured
== END 2024-08-28 10:15 | disposition home or self-care (01) ==
LOC: HO.HPS 09:39
PROVIDERS: PCP Physician Assistant; Visit Provider Hospitalist
DX: J44.0 Chronic obstructive pulmonary disease with (acute) lower respiratory infection (principal); J84.9 Interstitial pulmonary disease, unspecified; F17.200 Nicotine dependence, unspecified, uncomplicated; R91.8 Other nonspecific abnormal finding of lung field; R07.81 Pleurodynia
CPT/HCPCS: 99214

== ENCOUNTER → 2024-08-28 09:38 | Outpatient (BNVA) | payer MEDICAID, SELFPAY | PROVIDERS: PCP Physician Assistant; Visit Provider Hospitalist | DX: J44.0 Chronic obstructive pulmonary disease with (acute) lower respiratory infection (principal); J84.9 Interstitial pulmonary disease, unspecified; R91.8 Other nonspecific abnormal finding of lung field; R07.81 Pleurodynia; F17.200 Nicotine dependence, unspecified, uncomplicated | CPT/HCPCS: 99212 ==

== ENCOUNTER 2024-11-08 12:32 | Outpatient (REF) | payer MEDICAID, SELFPAY ==
--- NOTE | 2024-11-08 13:09 | PFT_ITS ---
Flows: FEV1: 100 % of predicted at 2.13 L FVC: 86 % of predicted at 2.32 L FEV1/FVC: 92 % Bronchodilator response: Absent Volumes: Total lung capacity: 75 % of predicted at 3.42 L Residual volume: 71 % of predicted at 1.16 L Slow vital capacity: 78 % of predicted at 2.26 L Expiratory reserve volume: 37 % of predicted at 0.25 L Diffusion capacity: Moderately decreased, adjusts to being mildly decreased after correction for alveolar ventilation. Impression: Mild restrictive ventilatory defect with no bronchodilator response. Decreased expiratory reserve volume suggests extrathoracic restriction likely secondary to abdominal obesity. Combination of restrictive ventilatory defect with decreased diffusion capacity suggests underlying pulmonary parenchymal disease. Clinical correlation is advised. MTDD
[2024-11-08 13:53] VITALS: PULSE 65; O2SAT 98
--- OUTSIDE RECORDS SUMMARY | 2024-11-08 14:39 | XMS_ITS | Clinical Summary ---
Author Organization [facility] Address [address] [facility] [address] [place] [address] Care Team Providers Care Shoveler Name Role Phone Unavailable Primary Care Provider Unavailabl e Encounters Date Type Department Care Team Description 09/11/2024 Population Health Risk Score [facility] Department [address] [facility] [address] [place] [phone] Provider, Population Health Generic from Last 3 Months Social History Tobacco Use Types Packs/Day Years Used Date Smoking Tobacco: Never Assessed Comments Unknown Sex and Gender Information Value Date Recorded Sex Assigned at Not on file Legal Sex Female 9:22 PM EDT Gender Identity Not on file Sexual Orientation Not on file Plan of Treatment Health Maintenance Due Date Last Done Comments CT Colonography 1960 Colonoscopy 1960 Colorectal Cancer Screening 1960 Depression Screening 1960 FIT DNA/Cologuard 1960 FIT 1960 FOBT 1960 SDOH Screening 1960 Sigmoidoscopy 1960 Disability Screening 1960 Alcohol/Substance Use Screening 1972 Tobacco Screening 1972 Hepatitis C Screening 02/21/1978 Pneumococcal Vaccine: 50+ Years (1 of 2 - PCV) 02/21/1979 Pap Smear 02/21/1981 Cervical Cancer Screening 02/21/1990 HPV/Cotest 02/21/1990 Mammogram 2000 Hepatitis B Vaccines (2 of 3 - 19+ 3-dose series) 12/01/2017 11/03/2017 RSV Patients and Patients Aged 60 years or older (1 - Risk 60-74 years 1-dose series) 2020 Zoster Vaccines (2 of 2) 03/26/2020 01/30/2020 COVID-19 Vaccine (3 - season) 2024 07/02/2020, 06/04/2020 Influenza Vaccine (#1) 2024 , 01/30/2020, 01/03/2019 DTaP/Tdap/Td Vaccines (2 - Td or Tdap) 06/13/2025 06/14/2015 HIV Screening Completed 03/20/2024, 02/22, 11/29/2023, Additional history exists HIB Vaccines Aged Out [...] patient's age to complete this topic Meningococcal Vaccine Aged Out No vidal wagner eligible based on patient's age to complete this topic RSV under 20 months Aged Out No longe r eligible based on patient's age to complete this topic Rotavirus Vaccines Aged Out No longer eligible based on patient's age to complete this topic
--- OUTSIDE RECORDS SUMMARY | 2024-11-08 14:39 | XMS_ITS | Encounter Summary ---
Author Organization [facility] Address [address] [place] [address] Care Team Providers Care Grey Percher Name Role Phone Thu Clark PA-C Primary Care Provider [phone] Encounter Details Date Type Department Care Team (Late st Contact Info) Description 03/20/2020 Scan Pathology [facility] Primary Care [address] [place] [phone] Thu Clark PA-C [address] [place] [phone] Social History Tobacco Use Types Packs/Day Years [...] as of this encounter Plan of Treatment Upcoming Encounters Date Type Department Care Team (Late st Contact Info) Description 11/09/2024 4:00 PM EDT Office Visit [facility] [address] [place] [phone] Thu Clark PA-C [address] [place] [phone] documented as of this encounter Procedures Procedure [...] documented as of this encounter Care Teams Grey Percher Relationship Specialty Start Date End Date Thu Clark PA-C [address] [place] [phone] PCP - General Internal Medicine 04/30/20 documented as of this encounter
--- OUTSIDE RECORDS SUMMARY | 2024-11-08 14:39 | XMS_ITS | Clinical Summary ---
Author Organization [facility] Address [address] [place] [address] Phone Care Team Providers Care Breaker Hand Name Role Phone Thu Clark Primary Care Provider [phone] Allergies No known active allergies Medications hydrOXYzine HCL (ATARAX) 10 mg tablet Take 1 tablet (10 mg total) by mouth every 6 (six) hours if needed for itching for up to 10 days. 30 tablet 10/21/2024 Active omeprazole (PriLOSEC) [address] capsule Take 1 capsule (20 mg total) by mouth 1 (one) time each day for 14 days. Do not crush or chew. 14 each 10/15/2024 10/30/19 Active Problems No known active problems Encounters Date Type Department Care Team Description 10/21/2024 11:08 AM EDT - 10/21/2024 12:13 PM EDT [facility] Emergency [address] [place] [phone] Viral upper respiratory tract infection (Primary Dx) Discharge Disposition: Home or Self Care 10/15/2024 12:51 AM EDT - 10/15/2024 6:38 AM EDT Emergency [facility] Emergency [address] [place] [phone] Vania Guerra MD Gastroenteritis (Primary Dx); Epigastric pain; Vomiting and diarrhea; Traumatic chest pain Discharge Disposition: Home or Self Care 10/05/2024 10:36 AM EDT - 10/05/2024 1:52 PM EDT Emergency [facility] Emergency [address] [place] [phone] Thanh Blank MD Chest pain, unspecified type (Primary Dx); Back pain, unspecified back location, unspecified back pain laterality, unspecified chronicity Discharge Disposition: Home or Self Care 08/07/2024 11:09 PM EDT - 08/08/2024 6:58 AM EDT Emergency [facility] Emergency [address] [place] [phone] Brett Coffman MD Acute right-sided low back pain without sciatica (Primary Dx); Generalized abdominal pain Discharge Disposition: Home or Self Care from Last 3 Months Surgical History Surgery Date Site/Laterality Comments BACK SURGERY Medical History Medical History Date Comments Arthritis Asthma Gastritis Social History Tobacco Use Types Packs/Day Years Used Date Smoking Tobacco: Some Days Cigarettes Smokeless Tobacco: Never Tobacco Cessation:Ready to [...] Sign Reading Time Taken Comments Blood Pressure 156/89 10/21/2024 10:41 AM EDT Pulse 72 10/21/2024 10:41 AM EDT Temperature 36.8 C (98.2 F) 10/21/2024 10:41 AM EDT Respiratory Rate 16 10/21/2024 10:41 AM EDT Oxygen Saturation 100% 10/21/2024 10:41 AM EDT Inhaled Oxygen Concentration - - Weight 78 kg (172 lb) 10/21/2024 10:41 AM EDT Height 157.5 cm (5' 2 ) 10/21/2024 10:41 AM EDT Body Mass Index 31.46 10/21/2024 10:41 AM EDT Plan of Treatment Health Maintenance Due Date [...] 01/24/2022 Social Influencers of Health Screening 01/24/2022 Depression Screening 2024 COVID-19 Vaccine (4 - season) 2024 03/18/2021, 07/02/2020, 06/04/2020 Influenza Vaccine (#1) 2024 [...] Procedure Name Priority Date/Time Associated Diagnosis Comments [id number], RSV, FLU A AND B QUALITATIVE RT-PCR, INTERNAL LAB STAT 10/21/2024 11:17 AM EDT ECG ANNOTATED 10/16/2024 [place] URINE CULTURE TUBE STAT 10/15/2024 5:12 AM EDT URINALYSIS WITH REFLEX MICROSCOPIC AND CULTURE STAT 10/15/2024 5:12 AM EDT URINALYSIS WITH REFLEX MICROSCOPIC AND CULTURE STAT 10/15/2024 5:12 AM EDT TROPONIN I HIGH SENSITIVITY Timed 10/15/2024 4:[address] ABDOMEN PELVIS W CONTRAST STAT 10/15/2024 3:10 AM EDT XR CHEST 2 VIEWS STAT 10/15/2024 2:53 AM EDT TROPONIN I HIGH SENSITIVITY Timed 10/15/2024 1:49 AM EDT MAGNESIUM STAT 10/15/2024 1:49 AM EDT LACTATE STAT 10/15/2024 1:49 AM EDT CBC WITH AUTO DIFFERENTIAL STAT 10/15/2024 1:49 AM EDT LIPASE STAT 10/15/2024 1:49 AM EDT COMPREHENSIVE METABOLIC PANEL STAT 10/15/2024 1:49 AM EDT CBC AND DIFFERENTIAL STAT 10/15/2024 1:49 AM EDT ECG 12-LEAD STAT 10/15/2024 1:24 AM EDT XR CHEST 2 VIEWS STAT 10/05/2024 12:4 9 PM EDT ECG 12-LEAD STAT 10/05/2024 11:20 AM EDT [id number], RSV, FLU A AND B QUALITATIVE RT-PCR, INTERNAL LAB STAT 10/05/2024 11:15 AM EDT ECG ANNOTATED 08/09/2024 COOPER URINE CULTURE TUBE STAT 08/08/2024 1:34 AM EDT URINALYSIS WITH REFLEX MICROSCOPIC AND CULTURE STAT 08/08/2024 1:34 AM EDT URINALYSIS WITH REFLEX MICROSCOPIC AND CULTURE STAT 08/08/2024 1:[address] ABDOMEN PELVIS W CONTRAST STAT 08/08/2024 12:50 AM EDT from Last 3 Months Results * [id number], RSV, Influenza A and B qualitative RT-PCR (10/21/2024 11:17 AM EDT) Only the most recent of2 resultswithin the time period is included. Influenza A PCR Not Detected Not Detected LAB MICROBIOLOGY METHOD 10/21/2024 12:33 PM EDT [facility] Influenza B PCR Not Detected Not Detected LAB MICROBIOLOGY METHOD 10/21/2024 12:33 PM EDT [facility] RSV PCR Not Detected Not Detected LAB MICROBIOLOGY METHOD 10/21/2024 12:33 PM EDT [facility] SARS COV-2 Not Detected Not Detected LAB MICROBIOLOGY METHOD 10/21/2024 12:33 PM EDT [facility] Swab Both anterior nares / Unknown Non-blood Collection / Unknown 10/21/2024 11:17 AM EDT 10/21/2024 11:39 AM EDT Narrative [facility] - 10/21/2024 12:33 PM EDT Disclaimer: Testing was performed using the [employer] GeneXpert Xpress SARS-CoV-2 _Flu_RSV PLUS PCR assay. The manner in which this information is used to guide patient care is the responsibility of the healthcare provider. Results should be correlated with the clinical history, epidemiological data, and other data available to the clinician evaluating the patient. Negative results do not preclude infection. This test has been authorized by the FDA under an Emergency Use Authorization (EUA). This test is only authorized for the duration of time the declaration that circumstances exist justifying the authorization of the emergency use of in vitro diagnostic tests for detection of SARS-CoV-2 virus and/or diagnosis of COVID-19 infection under section 564 (b) (1) of the Act, 21 U.S.C 360bbb-3 (b) (1), unless the authorization is terminated or revoked sooner. Reference Range: Not Detected Fact sheet for Healthcare providers can be found at https://www.fda.gov/media/472139/download. Fact sheet for Healthcare patients can be found at https://www.fda.gov/media/167263/download. Shlomo BARNETT LAB MICROBIOLOGY - GENERAL ORDERABLES Final Result [facility] [address] [place] [address], * ECG-Annotated (10/16/2024) Only the most recent of2 resultswithin the time period is included. Provider Onbase MD ECG ORDERABLES Final Result * (ABNORMAL) Urinalysis with reflex microscopic and culture (10/15/2024 5:12 AM EDT) Only the most recent of2 resultswithin the time period is included. Specific [place] Urine 1.039(H) 1.003 - 1.030 LAB URINALYSIS - AUTOMATED METHOD 10/15/2024 6:08 AM EDT [facility] pH, Urine 5.5 5.0 - 8.0 pH LAB URINALYSIS - AUTOMATED METHOD 10/15/2024 6:08 AM EDT [facility] Leukocytes, Urine Negative Negative LAB URINALYSIS - AUTOMATED METHOD 10/15/2024 6:08 AM EDT [facility] Nitrite, Urine Negative Negative LAB URINALYSIS - AUTOMATED METHOD 10/15/2024 6:08 AM EDT [facility] Protein, Urine Trace <=Trace mg/dL LAB URINALYSIS - AUTOMATED METHOD 10/15/2024 6:08 AM EDT [facility] Glucose, Urine Negative Negative mg/dL LAB URINALYSIS - AUTOMATED METHOD 10/15/2024 6:08 AM EDT [facility] Ketones, Urine Negative Negative mg/dL LAB URINALYSIS - AUTOMATED METHOD 10/15/2024 6:08 AM EDT [facility] Urobilinogen, Urine 0.2 0.2 - 1.0 mg/dL LAB URINALYSIS - AUTOMATED METHOD 10/15/2024 6:08 AM EDT [facility] Bilirubin, Urine Negative Negative LAB URINALYSIS - AUTOMATED METHOD 10/15/2024 6:08 AM EDT [facility] Blood, Urine Negative Negative LAB URINALYSIS - AUTOMATED METHOD 10/15/2024 6:08 AM EDT [facility] Urine Urine specimen obtained by clean catch procedure / Unknown Non-blood Collection / Unknown 10/15/2024 5:12 AM EDT 10/15/2024 5:58 AM EDT us Vania Guerra MD LAB URINE ORDERABLES Final Res ult [facility] [address] [place] [address], * Cooper urine culture tube (10/15/2024 5:12 AM EDT) Only the most recent of2 resultswithin the time period is included. Extra Tube Hold for add-ons. 10/15/2024 7:01 AM EDT [facility] Comment:Auto resulted. Urine Urine specimen obtained by clean catch procedure / Unknown Non-blood Collection / Unknown 10/15/2024 5:12 AM EDT 10/15/2024 5:58 AM EDT Vania Guerra MD LAB URINE ORDERABLES Final Res ult Performing Organization Address [facility]/ZIP Co de Phone Number [facility] [address] [place] [address], [place] [phone] * Troponin I high sensitivity (NOW and then in 1 hour) (10/15/2024 4:04 AM EDT) Only the most recent of2 resultswithin the time period is included. High Sensitivity Troponin I 4 <=54 ng/L LAB CHEMISTRY METHOD 10/15/2024 5:25 AM EDT [facility] Blood Venous blood specimen / Unknown Venipuncture / Unknown 10/15/2024 4:04 AM EDT 10/15/2024 4:54 AM EDT Narrative [facility] - 10/15/2024 5:25 AM EDT High levels of biotin in samples may falsely decrease hsTroponin values. Use caution when interpreting hsTroponin results in patients taking biotin who exhibit renal impairment (eGFR <60) or in patients taking more than 20 mg/day of biotin. Vania Guerra MD LAB BLOOD ORDERABLES Final Res ult Performing Organization Address [facility] Co de Phone Number [facility] [address] [place] [address], [place] [phone] * CT Abdomen Pelvis w Contrast (10/15/2024 3:10 AM EDT) Only the most recent of2 resultswithin the time period is included. Anatomical Region Laterality Modality Body Computed Tomogra phy 10/15/2024 3:34 AM EDT Impressions 10/15/2024 3:34 AM EDT No acute findings. This document has been electronically signed by: Farrukh Anne MD, PHD on 10/15/2024 03:34:44 Narrative 10/15/2024 3:34 AM EDT INDICATION: Epigastric pain CT abdomen and pelvis with contrast Comparison: CT - CT ABD PEL W CONTRAST - 08/08/24 00:42 EDT Findings: Mild dependent changes are present within the lungs. Calcified pulmonary granuloma in the left lung base. Liver is of low-attenuation, mild hepatic steatosis. Pancreas, spleen and adrenal glands are within normal limits. Kidneys are non hydronephrotic and enhance symmetrically. Nonobstructing small renal calculi in the right kidney. No bowel obstruction, pneumoperitoneum, or pneumatosis. Scattered sigmoid diverticula are present without diverticulitis. Visualized appendix is normal. Urinary bladder and pelvic structures are within normal limits. No acute fracture. Procedure Note Farrukh Anne MD PhD - 10/15/[address]: [address] abdomen and pelvis with contrast Comparison: CT - CT ABD PEL W CONTRAST - 08/08/24 00:42 EDT Findings: Mild dependent changes are present within the lungs. Calcified pulmonary granuloma in the left lung base. Liver is of low-attenuation, mild hepatic steatosis. Pancreas, spleenand adrenal glands are within normal limits. Kidneys are non hydronephrotic and enhance symmetrically. Nonobstructing small renal calculi in the right kidney. No bowel obstruction, pneumoperitoneum, or pneumatosis. Scattered sigmoid diverticula are present without diverticulitis. Visualized appendix is normal. Urinary bladder and pelvic structures are within normal limits. No acute fracture. IMPRESSION: No acute findings. This document has been electronically signed by: Farrukh Anne MD, PHD on 10/15/2024 03:34:44 Vania Guerra MD IM CT PROCEDURES Final Result * XR Chest 2 Views (10/15/2024 2:53 AM EDT) Only the most recent of2 resultswithin the time period is included. Anatomical Region Laterality Modality Body Radiographic Judi ging 10/15/2024 8:52 AM EDT Impressions 10/15/2024 8:53 AM EDT FINDINGS/IMPRESSION: Lungs are clear. No pleural effusion or pneumothorax. Cardiac silhouette and bones are normal. -------- FINAL REPORT -------- Dictated By: MICHELLE VELARDE Dictated Date: 10/15/2024 08:52 ET Assigned Physician: MICHELLE VELARDE Reviewed and Electronically Signed By: MICHELLE VELARDE Signed Date: 10/15/2024 08:53 ET Workstation ID: [id number] Transcribed By: Self Edit Transcribed Date: 10/15/2024 08:52 ET Narrative 10/15/2024 8:53 AM EDT XR CHEST 2 VIEWS INDICATION: Pain, trauma TECHNIQUE: XR CHEST 2 VIEWS COMPARISON: 10/05/2024 Procedure Note Michelle Velarde MD - 10/15/2024 XR CHEST 2 VIEWS INDICATION: Pain, trauma TECHNIQUE: XR CHEST 2 VIEWS COMPARISON: 10/05/2024 IMPRESSION: FINDINGS/IMPRESSION: Lungs are clear. No pleural effusion orpneumothorax. Cardiac silhouette and bones are normal. -------- FINAL REPORT -------- Dictated By: MICHELLE VELARDE Dictated Date: 10/15/2024 08:52 ET Assigned Physician: MICHELLE VELARDE Reviewed and Electronically Signed By: MICHELLE VELARDE Signed Date: 10/15/2024 08:53 ET Workstation ID: [id number] Transcribed By: Self Edit Transcribed Date: 10/15/2024 08:52 ET Vania Guerra MD IMG XR PROCEDURES Final Result * (ABNORMAL) CBC auto differential (10/15/2024 1:49 AM EDT) WBC 11.3(H) 4.8 - 10.8 K/mcL LAB HEMETOLOGY METHOD 10/15/2024 2:09 AM EDT [facility] RBC 4.10 3.80 - 4.80 M/[facility] LAB HEMETOLOGY METHOD 10/15/2024 2:09 AM EDT [facility] Hemoglobin 12.2 11.5 - 16.0 g/dL LAB HEMETOLOGY METHOD 10/15/2024 2:09 AM EDT [facility] Hematocrit 38.4 35.0 - 47.0 % LAB HEMETOLOGY METHOD 10/15/2024 2:09 AM EDT [facility] MCV 93.2 79.0 - 98.0 FL LAB HEMETOLOGY METHOD 10/15/2024 2:09 AM [facility] MCH 29.6 27.0 - 32.0 pcg LAB HEMETOLOGY METHOD 10/15/2024 2:09 AM [facility] MCHC 31.8(L) 32.0 - 37.0 g/dL LAB HEMETOLOGY METHOD 10/15/2024 2:09 AM [facility] RDW 14.3 11.0 - 15.0 % LAB HEMETOLOGY METHOD 10/15/2024 2:09 AM [facility] Platelets 223 130 - 400 K/mcL LAB HEMETOLOGY METHOD 10/15/2024 2:09 AM [facility] MPV 11.3(H) 7.0 - 11.0 FL LAB HEMETOLOGY METHOD 10/15/2024 2:09 AM [facility] NRBC 0.2 <1.0 % LAB HEMETOLOGY METHOD 10/15/2024 2:09 AM [facility] NRBC Absolute 0.02 <0.10 K/mcL LAB HEMETOLOGY METHOD 10/15/2024 2:09 AM [facility] Neutrophils Relative 44.7 % LAB HEMETOLOGY METHOD 10/15/2024 2:09 AM [facility] Lymphocytes Relative 45.0 % LAB HEMETOLOGY METHOD 10/15/2024 2:09 AM [facility] Monocytes Relative 6.7 % LAB HEMETOLOGY METHOD 10/15/2024 2:09 AM [facility] Eosinophils Relative 2.7 % LAB HEMETOLOGY METHOD 10/15/2024 2:09 AM [facility] Basophils Relative 0.5 % LAB HEMETOLOGY METHOD 10/15/2024 2:09 AM EDT [facility] Immature Granulocytes Relative 0.4 % LAB HEMETOLOGY METHOD 10/15/2024 2:09 AM EDT [facility] Neutrophils Absolute 5.04 1.50 - 7.00 K/mcL LAB HEMETOLOGY METHOD 10/15/2024 2:09 AM EDT [facility] Lymphocytes Absolute 5.06(H) 1.00 - 5.00 K/mcL LAB HEMETOLOGY METHOD 10/15/2024 2:09 AM EDT [facility] Monocytes Absolute 0.75 0.20 - 1.00 K/mcL LAB HEMETOLOGY METHOD 10/15/2024 2:09 AM EDT [facility] Eosinophils Absolute 0.30 0.00 - 0.50 K/mcL LAB HEMETOLOGY METHOD 10/[facility]24 [facility] Basophils Absolute 0.06 0.00 - 0.20 K/mcL LAB HEMETOLOGY METHOD 10/15/2024 2:09 AM EDT [facility] Immature Granulocytes Absolute 0.04(H) 0.00 - 0.03 K/mcL LAB HEMETOLOGY METHOD 10/15/2024 2:09 AM [facility] Blood Venous blood specimen / Unknown Venipuncture / Unknown 10/15/2024 1:49 AM EDT 10/15/2024 1:58 AM EDT us Vania Guerra MD LAB BLOOD ORDERABLES Final Res ult [facility] [address] [place] [address], * Magnesium (10/15/2024 1:49 AM EDT) Magnesium 1.9 1.9 - 2.6 mg/dL LAB CHEMISTRY METHOD 10/15/2024 2:39 AM EDT [facility] Blood Venous blood specimen / Unknown Venipuncture / Unknown 10/15/2024 1:49 AM EDT 10/15/2024 1:58 AM EDT Vania Guerra MD LAB BLOOD ORDERABLES Final Res ult Performing Organization Address [facility]/ZIP Co de Phone Number [facility] [address] [place] [address], [place] [phone] * Lipase (10/15/2024 1:49 AM EDT) Lipase 49 13 - 75 unit/L LAB CHEMISTRY METHOD 10/15/2024 2:39 AM EDT [facility] Blood Venous blood specimen / Unknown Venipuncture / Unknown 10/15/2024 1:49 AM EDT 10/15/2024 1:58 AM EDT Vania Guerra MD LAB BLOOD ORDERABLES Final Res ult Performing Organization Address [facility]/ZIP Co de Phone Number [facility] [address] [place] [address], [place] [phone] * Lactate (10/15/2024 1:49 AM EDT) Lactate 0.7 0.4 - 2.0 mmol/L LAB CHEMISTRY METHOD 10/15/2024 2:26 AM EDT [facility] Blood Venous blood specimen / Unknown Venipuncture / Unknown 10/15/2024 1:49 AM EDT 10/15/2024 1:57 AM EDT us Vania Guerra MD LAB BLOOD ORDERABLES Final Res ult Performing Organization Address City/[facility]/ZIP Co de Phone Number [facility] [address] [place] [address], [place] [phone] * (ABNORMAL) Comprehensive metabolic panel (10/15/2024 1:49 AM EDT) Sodium 136 133 - 145 mmol/L LAB CHEMISTRY METHOD 10/15/2024 2:39 AM [facility] Potassium 4.1 3.5 - 5.5 mmol/L LAB CHEMISTRY METHOD 10/15/2024 2:39 AM [facility] Chloride 107 96 - 110 mmol/L LAB CHEMISTRY METHOD 10/15/2024 2:39 AM [facility] CO2 24 21 - 32 mmol/L LAB CHEMISTRY METHOD 10/15/2024 2:39 AM [facility] Anion Gap 5 3 - 11 LAB CHEMISTRY METHOD 10/15/2024 2:39 AM [facility] Glucose 110(H) 70 - 100 mg/dL LAB CHEMISTRY METHOD 10/15/2024 2:39 AM [facility] BUN 18 5 - 25 mg/dL LAB CHEMISTRY METHOD 10/15/2024 2:39 AM [facility] Creatinine 0.66 0.50 - 1.10 mg/dL LAB CHEMISTRY METHOD 10/15/2024 2:39 AM [facility] eGFR 98 >=60 mL/min/1. 73m2 LAB CHEMISTRY METHOD 10/15/2024 2:39 AM [facility] Comment:Calculation based on the Chronic Kidney Disease Epidemiology Collaboration (CKD-EPI) equation refit without adjustment for race. BUN/Creatinine Ratio 27.3 LAB CHEMISTRY METHOD 10/15/2024 2:39 AM [facility] Calcium 9.0 8.5 - 10.5 mg/dL LAB CHEMISTRY METHOD 10/15/2024 2:39 AM [facility] AST (SGOT) 25 10 - 42 unit/L LAB CHEMISTRY METHOD 10/15/2024 2:39 AM [facility] ALT (SGPT) 25 10 - 60 unit/L LAB CHEMISTRY METHOD 10/15/2024 2:39 AM EDT [facility] Alkaline Phosphatase 143(H) 42 - 121 unit/L LAB CHEMISTRY METHOD 10/15/2024 2:39 AM EDT [facility] Total Protein 7.2 6.0 - 8.0 g/dL LAB CHEMISTRY METHOD 10/15/2024 2:39 AM EDT [facility] Albumin 3.5 3.2 - 5.0 g/dL LAB CHEMISTRY METHOD 10/15/2024 2:39 AM EDT [facility] Total Bilirubin 0.2 0.0 - 1.4 mg/dL LAB CHEMISTRY METHOD 10/15/2024 2:39 AM EDT [facility] Blood Venous blood specimen / Unknown Venipuncture / Unknown 10/15/2024 1:49 AM EDT 10/15/2024 1:58 AM EDT us Vania Guerra MD LAB BLOOD ORDERABLES Final Res ult [facility] [address] [place] [address], * ECG 12 lead (10/15/2024 1:24 AM EDT) Only the most recent of2 resultswithin the time period is included. Ventricular Rate ECG 53 BPM GEMUSE Atrial Rate 53 BPM GEMUSE P-R Interval 164 ms GEMUSE QRS Duration 90 ms GEMUSE Q-T Interval 448 ms GEMUSE QTc 420 ms GEMUSE P Wave [place] 25 degrees GEMUSE R [place] 12 degrees GEMUSE T [place] 12 degrees GEMUSE ECG Interpretation Sinus bradycardia Otherwise normal ECG When compared with ECG of 05-OCT-2024 11:20, No significant change was found Confirmed by RUBI RECINOS ([id number]) on 10/16/2024 8:03:01 AM GEMUSE 10/15/2024 1:24 AM EDT 10/16/2024 8:03 AM EDT us Vania Guerra MD ECG ORDERABLES Final Result GEMUSE from Last 3 Months Additional Health Concerns Infection Onset Date Last Indicated Gastrointestinal Rule-Out 10/15/20242024 Insurance MEDICAID - [place] Care Teams Breaker Hand Relationship Specialty Start Date End Date Thu Clark PA [address] [place] [phone] PCP - General Physician Forestry Adviser 03/18/24
--- OUTSIDE RECORDS SUMMARY | 2024-11-08 14:39 | XMS_ITS | Encounter Summary ---
Author Organization [facility] Address [address] [place] [address] Care Team Providers Care Turbine Room Attendant Name Role Phone Thu Clark PA-C Primary Care Provider Encounter Details Date Type Department Care Team (Late Contact Info) Description 11/20/2014 Scan Pathology [facility] [address] [place] [phone] Thu Clark PA-C [address] [place] [phone] Social History Tobacco Use Types Packs/Day Years [...] Encounters Date Type Department Care Team (Late Contact Info) Description 11/09/2024 4:00 PM EDT Office Visit [address] [phone] Thu Clark PA-C [address] [place] [phone] documented as of this encounter Procedures [...] documented as of this encounter Care Teams Turbine Room Attendant Relationship Specialty Start Date End Date Thu Clark PA-C [address] [place] [phone] PCP - General Internal Medicine 04/30/20 documented as of this encounter
--- OUTSIDE RECORDS SUMMARY | 2024-11-08 14:39 | XMS_ITS | Clinical Summary ---
Author Organization [facility] Address [address] [place] [address] Care Team Providers Care Spool Sorter Name Role Phone Thu Kwan PA-C Primary Care Provider Source Comments PLEASE NOTE, if this patient [...] mcg/actuation inhalerIndications :Mild persistent asthma without complication ([facility]) Inhale 2 Puffs into the lungs every [...] mcg/actuation nasal sprayIndications:V iral sinusitis Place 1 [place] in both nostrils once daily 16 g [...] indigestion 335 mL 2 05/25/19 24 Active famotidine (PEPCID) 40 mg tabletIndications: Dyspepsia TAKE 1 TABLET BY MOUTH DAILY 90 Tablet 2 03/02/19 25 Active rosuvastatin (CRESTOR) 40 mg tabletIndications: Hyperlipidemia, mixed,Tobacco abuse Take 1 Tablet by mouth nightly at bedtime 90 Tablet 3 03/20/19 25 Active omeprazole (PRILOSEC) [address] capsuleIndications :Dyspepsia TAKE 1 CAPSULE BY MOUTH EVERY MORNING BEFORE BREAKFAST 90 Capsule 1 06/11/19 25 Active STIMULANT LAXATIVE PLUS 8.6-50 mg per tabletIndications: Functional constipation TAKE 2 TABLETS BY MOUTH NIGHTLY AT BEDTIME 180 Tablet 1 06/11/19 25 Active codeine-guaifenesi n (ROBITUSSIN-AC) 10-100 mg/5 mL syrupIndications:A cute pharyngitis, unspecified etiology Take 5 mL by mouth 3 (three) times daily as needed for cough or congestion DO NOT TAKE with TRAMADOL at the same time 120 mL 06/19/19 25 Active traMADoL (ULTRAM) 50 mg tabletIndications: Lumbar degenerative disc disease Take 1 Tablet by mouth nightly at bedtime. 30 Tablet 3 10/26/19 25 Active traMADoL (ULTRAM) 50 mg tabletIndications: Lumbar degenerative disc disease Take 1 Tablet by mouth nightly at bedtime 30 Tablet 3 06/19/19 25 025 Discontin ued(Reord er (E-Cancel Not Sent)) Active Problems Problem Noted Date Diagnosed Date Acquired hypothyroidism 10/16/2021 Nephrolithiasis, right kidney, 2 mm 09/2020 Interstitial lung disease (HCC-CMS) on LDCT 07/23 021 08/21/2020 Osteopenia of multiple sites 03/08/2019 Overview (03/08/2019): [...] of left knee 11/07/2018 Overview (11/08/2018): Per [facility] 11/07/2018 Diagnostic radiology- Knee 1 or 2 views left Impression: mild midial tibiofemoral joint space loss, usually degenerative Functional constipation 04/15/2015 Insomnia 04/15/2015 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 COMMENTS: Contrast-enhanced Chest CT examination ([employer] VCT, 147.60 DLP (mGy-cm)) with imaging from [...] requested and followup recommended. Asthma, mild intermittent ([facility]) 04/18/2013 Cystic mastopathy 01/22/2008 Lumbar degenerative disc disease Overview (03/12/2019): [facility] 03/02/2019 on examination I could find no abnormality in the lower extremities ... no evidence of DVT or peripheral artery obstruction ... her symptoms seem to be coming from her back and I suggested she be evaluated along those lines. We do not need to see her again. MRI Lumbar Spine W+W/O Contrast [facility] 11/18/2018 No marrow or disc space abnormality [...] 07/17/2018. RESULT: MRI Lumbar Spine W+W/O Contrast [facility] 07/17/2018 ALIGNMENT, VERTEBRAE, MARROW, AND DISCS: There [...] Auth (Verified) Result title: 7B Encounter info: [id number], [facility], Disch [facility], 03/01/2011 - 03/01/2011 Contributor system: Financial Guard * Final Report * 7B Colonoscopy and EGD Report Endoscopist(s): Elfego Brower MD Date: Tuesday, March 01, 2011 Ref. Phys.: ERICKA SWAIN Patient: CAROL BELLA Assisting Nurse(s)/ Other Personnel: ANTONINO HESS GTS Colonoscopy Instrument: [id number] ([id number]) Date: 1960 (51 years) EGD Instrument: GIF [id number] ([id number]) ASA Class: P2 C Account: [id number] Medications: Versed 5 mg Meperidine 100mg Indications: [...] Dr. KWAN as needed Follow up with retail pos specialist as scheduled Maintain a high fiber diet Resume taking your current medications In the absence of a family history of colorectal cancer would repeat colonoscopy in 10 years Elfego Brower MD Case documentation started on 03/01/2011 1:58:09 PM Patient: CAROL BELLA ([id number] ) Resolved Problems Problem Noted Date Diagnosed Date Resolved Date HELICOBACTER PYLORI (H. PYLORI) 03/10/2022 Encounters Date Type Department Care Team Description 10/23/2024 Interim Notes [address] [place] [address] Viviane Sanchez RN 10/23/2024 Interim Notes [address] [address] Felicitas Jiang 10/16/2024 Interim Notes [address] [address] Felicitas Jiang 10/15/2024 Interim Notes [address] [place] [address] Viviane Sanchez RN 10/08/2024 Interim Notes [address] [place] [address] Felicitas Jiang 08/10/2024 Interim Notes [address] [address] Viviane Sanchez RN 08/09/2024 Interim Notes [address] [place] [address] Felicitas Jiang from Last 3 Months Immunizations Immunization Administration Dates Next Due Flu, Preservative Free 12/15/2020,01/30/2020, Hep B, Adult/Adol (MRWHVOL-V-HCFHV/RECOMBIVAX-ADULT) 11/03/2017 Moderna COVID-19 Vaccine, re d cap blue label, 12+ Primary Series 07/02/2020,06/04/2020 TDAP 06/14/2015 ZOSTER VACCINE, RECOMBINANT (SHINGRIX) 0 Social History Tobacco Use Types Packs/Day Years Used Date Smoking Tobacco: Every Day Cigarettes 0.3 50.7 Started: 02/21/1974 Passive Smoke Exposure: Never Smokeless Tobacco: Never Tobacco Cessation:Ready to Q uit: No; Counseling Given: Yes Comments:2-3 cigs a day Alcohol Use Standard Drinks/Week Comments Not Currently 0 (1 standard drink = 0.6 oz pur e alcohol) Social Connections Answer Date Recorded How often do you feel lonely or isolated from ose around you? 1 11/29/2023 Financial Resource Strain Answer Date R ecorded Hard to pay for: Food 1 11/29/2023 Stress Answer Date Recorded Do you feel these kinds of stress these days? 1 11/29/2023 Physical Activity Answer Date Recorded Physical Activity 0 07/29/2020 Food Insecurity Answer Date Recorded Within the past 12 months, t he food you bought just didn't last and you didn't have enough money to get more. 2 10/13/19 Transportation Needs Answer Date Record ed In the past 12 months, has l ack of transportation kept you from medical appointments, meetings, work or from getting things needed for daily living? (Check all that apply) 2 2024 Housing Stability Answer Date Recorded What is your housing situation today? 1 10/12/2024 Safety and Environment Answer Date Michael rded Safety 0 11/10/2022 Utilities Answer Date Recorded In the past 12 months has th e electric, gas, oil, or water company threatened to shut off services in your home? 2 10/12/2024 Employment Answer Date Recorded Stress 0 07/29/2020 [...] 80 03/20/2024 1:37 PM EST Temperature 36.8 C (98.2 F) 03/20/2024 1:37 PM EST Respiratory Rate 16 03/20/2024 1:37 PM EST Oxygen Saturation 98% 03/20/2024 1:37 PM EST Inhaled Oxygen Concentration - - Weight 73 kg (161 lb) 03/20/2024 1:37 PM EST Height 152.4 cm (5') 03/20/2024 1:37 PM EST Body Mass Index 31.44 03/20/2024 1:37 PM EST Plan of Treatment Upcoming Encounters Date Type Department Care Team (Late st Contact Info) Description 11/09/2024 4:00 PM EDT Office Visit [address] [address] Thu Kwan PA-C [address] [place] [address] Health Maintenance Due Date Last Done Comments Anxiety Screening [address] Colonography 02/21/2005 Fecal DNA 02/21/2005 Flexible Sigmoidoscopy 02/21/2005 Imm-Hepatitis B (2 of 3 - Risk 3-dose series) 12/01/2017 11/03/2017 Urine Drug Screen 05/02/2018 05/02/2017 FIT/gFOBT 11/25/2019 11/24/2018, 02/22 (Declined), 02/08/2013 Imm-Zoster, Recombinant (2 of 2) 03/26/2020 01/30/2020 Pap Smear 03/20/2023 03/20/2020, 02/22, 06/03/2015, Additional history exists Depression Monitoring 09/17/2024 06/18/2024 , 11/29/2023, 11/10/2022, Additional history exists Jot-[id number]-06 ( season) 2024 03/18/2021, 07/02/2020, 06/04/2020 Imm-Influenza (#1) 2024 12/15/2020, 1 04/01/2019, 01/03/2019, Additional history exists Annual Wellness (Adult): Indicated (All Coverage) 11/28/2024 11/29/2023, 08/03/2022, 01/30/2020, Additional history exists Lipid Screening 11/28/2024 11/29/2023, 04/0 04/2023, 11/10/2022, Additional history exists Cervical Cancer Screening 03/20/2025 HPV Screening 03/20/2025 03/20/2020 Hypertension Screening (#1) 03/20/2025 Pap + HPV 03/20/2025 03/20/2020, 02/22, 06/03/2015, Additional history exists Syphilis Screening 03/20/2025 03/20/2024, 1 , 11/10/2022, Additional history exists TSH Monitoring 03/20/2025 03/20/2024, 09/2023, 05/25/2023, Additional history exists Imm-DTaP/Tdap/Td (2 - Td or Tdap) 06/13/2025 06/14/2015 Breast Cancer Screening (Mammogram) 06/18/2025 02/08/2013, 03/02/2010, 12/11/2008, Additional history exists Postponed from 02/08/2015 (Patient postponement) Tobacco Cessation Counseling (#1) 06/18/2025 01/30/2020, 02/13/2015 Diabetes Screening 10/14/2025 10/14/2024, 0 08/07/2024, 04/07/2024, Additional history exists Colonoscopy 11/24/2028 11/24/2018 Colorectal Cancer Screening 11/24/2028 Colposcopy Discontinued 11/24/2018 HIV Screening Completed 03/20/2024, 09/2023, 11/10/2022, Additional history exists Hepatitis C Screening Completed 03/20/2024 , 11/29/2023, 11/10/2022, Additional history exists Alcohol and Drug Screen Completed 06/19/19, 11/29/2023, 11/10/2022, Additional history exists Cervical Ablation/Cold-Knife Conization Discontinued Cervical Cryotherapy Discontinued Endometrial Biopsy Discontinued Excision/Leep Discontinued HPV Genotyping Discontinued Imm-Pneumococcal 50+ Discontinued Vaginal Pap Discontinued Vulvoscopy Discontinued Procedures Procedure Name Priority Date/Time Associated Diagnosis Comments CARD SCANNED DOCUMENT 10/15/2024 3:00 AM EDT IMAGING SCANNED DOCUMENT 10/15/2024 3:00 AM EDT IMAGING SCANNED DOCUMENT 10/15/2024 3:00 AM EDT IMAGING SCANNED DOCUMENT 10/05/2024 3:00 AM EDT REFERRAL SCANNED DOCUMENT 08/28/2024 3:00 AM EDT HIV 1/2 AG & AB W/RFLX (4TH [...] in women Epigastric pain STD exposure Somnolence LIPID PANEL Routine 11/29/2023 3:05 PM EDT [...] Recently Relevant to Health Maintenance Results * CARD SCANNED DOCUMENT (10/15/2024 3:00 AM EDT) 10/15/2024 3:00 AM EDT us Thu Lukin PA-C SCAN ECGS Final Result * IMAGING SCANNED DOCUMENT (10/15/2024 3:00 AM EDT) Only the most recent of3 resultswithin the time period is included. 10/15/2024 3:00 AM EDT us Thu Lukin PA-C SCAN IMAGING Final Result * REFERRAL SCANNED DOCUMENT (08/28/2024 3:00 AM EDT) 08/28/2024 3:00 AM EDT Coleman Freitas SCAN REFERRAL Final Result * RPR (DIAGNOSIS) WITH REFLEX TO TITER AND CONFIRMATORY TESTING (03/20/2024 2:05 PM EST) RPR (DX) W/REFL TITER AND CONFIRMATORY TESTING NON-REACT SEFERINO NON-REACT SEFERINO [facility] Comment: No laboratory evidence of syphilis. If recent exposure is suspected, submit a new sample in 2-4 weeks. Serum Blood / Unknown 03/20/2024 2 :05 PM EST 03/20/2024 2:05 PM EST Narrative [employer] - 03/21/2024 8:57 PM EST FASTING:NO Thu Kwan PA-C LAB - BLOOD DRAW Edited Resu lt - Final [facility] [address] [address], [facility] [address] [address] * HEPATITIS C AB W/RFLX HCV RNA, QT, RT PCR (03/20/2024 2:05 PM EST) HEPATITIS C ANTIBODY NON-REACT SEFERINO NON-REACT SEFERINO [facility] Comment: HCV antibody was non-reactive. There is no laboratory evidence of HCV infection. In most cases, no further action is required. However, if recent HCV exposure is suspected, a test for HCV RNA (test code 26702) is suggested. For additional information please refer to http://education.[employer]/faq/UTH51i1 (This link is being provided for informational/ educational purposes only.) Blood Blood / Unknown 03/20/2024 2 :05 PM EST 03/20/2024 2:05 PM EST Narrative [employer] - 03/21/2024 8:57 PM EST FASTING:NO Thu Kwan PA-C LAB - BLOOD DRAW Edited Resu lt - Final Performing Organization Address [facility] Co de Phone Number [facility] [facility] [address] [address], [facility] [address] [address] * HIV 1/2 AG & AB W/RFLX (4TH GEN) (03/20/2024 2:05 PM EST) HIV AG/AB, 4TH GEN NON-REAC TIVE NON-REAC TIVE [facility] [facility] Comment: HIV-1 antigen and HIV-1/HIV-2 antibodies were not detected. There is no laboratory evidence of HIV infection. PLEASE NOTE: This information has been disclosed to you from records whose confidentiality may be protected by state law. If your state requires such protection, then the state law prohibits you from making any further disclosure of the information without the specific written consent of the person to whom it pertains, or as otherwise permitted by law. A general authorization for the release of medical or other information is NOT sufficient for this purpose. For additional information please refer to http://education.[employer]/faq/MBJ479 (This link is being provided for informational/ educational purposes only.) The performance of this assay has not been clinically validated in patients less than 2 years old. Blood Blood / Unknown 03/20/2024 2 :05 PM EST 03/20/2024 2:05 PM EST Narrative [facility] [facility] - 03/21/2024 8:57 PM EST FASTING:NO Thu Kwan PA-C LAB - BLOOD DRAW Final Resul t Performing Organization Address [facility]/ZIP Co de Phone Number [facility] [address] [address], [facility] [address] [address] * TSH W/RFLX FREE T4 (03/20/2024 2:05 PM EST) TSH W/REFLEX TO FT4 2.16 0.40 - 4.50 mIU/L [facility] Blood Blood / Unknown 03/20/2024 2 :05 PM EST 03/20/2024 2:05 PM EST Narrative [facility] [facility] - 03/21/2024 8:57 PM EST FASTING:NO Thu Kwan PA-C LAB - BLOOD DRAW Edited Resu lt - Final [facility] [address] [address], [facility] [address] [place] [address] * COMPREHENSIVE METABOLIC PANEL (03/20/2024 2:05 PM EST) GLUCOSE 91 65 - 139 mg/dL [facility] Comment: Non-fasting reference interval UREA NITROGEN (BUN) 16 7 - 25 mg/dL [facility] CREATININE (blood) 0.66 0.50 - 1.05 mg/dL [facility] EGFR 98 > OR = 60 mL/min/1. 73m2 [facility] BUN/CREATININE RATIO SEE NOTE: [facility] Comment: Not Reported: BUN and Creatinine are within reference range. SODIUM 138 135 - 146 mmol/L [facility] POTASSIUM 4.8 3.5 - 5.3 mmol/L [facility] CHLORIDE 102 98 - 110 mmol/L [facility] CARBON DIOXIDE 29 20 - 32 mmol/L [facility] CALCIUM 9.4 8.6 - 10.4 mg/dL [facility] PROTEIN, TOTAL 7.4 6.1 - 8.1 g/dL [facility] ALBUMIN 4.4 3.6 - 5.1 g/dL [facility] GLOBULIN 3.0 1.9 - 3.7 g/dL (calc) [facility] ALBUMIN/GLOBULI N RATIO 1.5 1.0 - 2.5 (calc) [facility] BILIRUBIN, TOTAL 0.3 0.2 - 1.2 mg/dL [facility] ALKALINE PHOSPHATASE 129 37 - 153 U/L [facility] AST 15 10 - 35 U/L [facility] ALT 15 6 - 29 U/L [facility] Blood Blood / Unknown 03/20/2024 2 :05 PM EST 03/20/2024 2:05 PM EST Narrative [employer] - 03/21/2024 8:57 PM EST FASTING:NO Thu Kwan PA-C LAB - BLOOD DRAW Edited Resu lt - Final [facility] [address] [address], [facility] [address] [place] [address] * (ABNORMAL) LIPID PANEL (11/29/2023 3:05 PM EDT) [facility] Signature CHOLESTEROL, TOTAL 271(H) <200 mg/dL [facility] HDL CHOLESTEROL 31(L) > OR = 50 mg/dL [facility] TRIGLYCERIDES 297(H) <150 mg/dL [facility] Comment: If a non-fasting specimen was collected, consider repeat triglyceride testing on a fasting specimen if clinically indicated. Jaylyn et al. J. of Clin. Lipidol. 2015;9:129-169. LDL-CHOLESTEROL 190(H) 99 mg/dL (calc) [facility] Comment: LDL-C levels > or = 190 [...] about testing for familial hypercholesterolemia, please call [employer] [facility] at .[email or web address]. Jaylyn Cummings, et al. J National Lipid Association Recommendations for Patient-Centered Management of Dyslipidemia: Part 1 Journal of Clinical Lipidology 2015;9(2), 129-169. Sandro Sevilla et al. (2014). Homozygous familial hypercholesterolaemia: new insights and guidance for clinicians to improve detection and clinical management. Heart Journal, 35(32), 8505-5667. Reference range: <100 Desirable range <100 mg/dL for primary prevention; <70 mg/dL for patients with CHD or diabetic patients with > or = 2 CHD risk factors. LDL-C is now calculated using the Ernestina calculation, which is a validated novel method providing better accuracy than the Friedewald equation in the estimation of LDL-C. Shon BOTELLO et al. MARISSA. 2013;310(19): 4580-1457 (http://education.[employer]/faq/HWP956) CHOL/HDLC RATIO 8.7(H) <5.0 (calc) [facility] NON-HDL CHOLESTEROL 240(H) <130 mg/dL (calc) [facility] Comment: Non-HDL level > or = 220 [...] LAB - BLOOD DRAW Final Resul t [facility] [address] [address], [facility] [address] [address] * (ABNORMAL) PAP SMEAR W/HPV (03/20/2020) PAP SMEAR INTERPRETATION ABNORMAL(A) NORMAL [facility] HPV (HUMAN PAPILLOMA) POSITIVE(A) NEGATIVE [facility] HPV TYPE 16 POSITIVE NEGATIVE [facility] HPV TYPE 18 POSITIVE NEGATIVE [facility] Swab 03/20/2020 Impressions [facility] - 03/27/2020 1:18 PM EST ASCUS, high risk HPV positive Provider [facility] - PATHOLOGY AND CYTOLOGY AMB ULATORY Final Result [facility] [address] [place] [address], * COLPOSCOPY, ABSTRACTED (11/24/2018) 11/24/2018 Impressions [facility] - 12/27/2018 10:54 AM EST Polyp (3mm to 5 mm) In the ascending colon. (polypectomy). Polyp (5mm) in the transverse colon, (Polypectomy). Polyps (5mm) in the rectum. (Polypectomy). Diverticulitis of the descending colon. Internal and external hemorrhoids. Colon otherwise normal to the terminal ileum including retroflexion. us Provider [facility] PROCEDURES Final Result Performing Organization Address [facility] Co de Phone Number [facility] [address] [place] [address], * (ABNORMAL) URINE DRUG SCREEN (05/02/2017 11:40 AM EDT) BENZODIAZEPINE, URINE NONE DETECTED ND [facility] Comment: Assay cutoff 200 ng/mL Semi-quantitative assay for screening purposes only. Unconfirmed screening result should not be used for non-medical purposes. *ALTERNATE METHOD CONFIRMATION DONE UPON REQUEST ONLY* COCAINE, URINE POSITIVE(A) ND [facility] Comment: Assay cutoff 300 ng/mL Semi-quantitative assay for screening purposes only. Unconfirmed screening result should not be used for non-medical purposes. *ALTERNATE METHOD CONFIRMATION DONE UPON REQUEST ONLY* AMPHETAMINE, URINE NONE DETECTED ND [facility] Comment: Assay cutoff 1000 ng/mL Semi-quantitative assay for screening purposes only. Unconfirmed screening result should not be used for non-medical purposes. *ALTERNATE METHOD CONFIRMATION DONE UPON REQUEST ONLY* MARIJUANA (THC), URINE NONE DETECTED ND [facility] Comment: Assay cutoff 50 ng/mL Semi-quantitative assay for screening purposes only. Unconfirmed screening result should not be used for non-medical purposes. *ALTERNATE METHOD CONFIRMATION DONE UPON REQUEST ONLY* OPIATES, URINE NONE DETECTED ND [facility] Comment: Assay cutoff 300 ng/mL Semi-quantitative assay for screening purposes only. Unconfirmed screening result should not be used for non-medical purposes. *ALTERNATE METHOD CONFIRMATION DONE UPON REQUEST ONLY* BARBITURATES, URINE NONE DETECTED ND [facility] Comment: Assay cutoff 200 ng/mL Semi-quantitative assay for screening purposes only. Unconfirmed screening result should not be used for non-medical purposes. *ALTERNATE METHOD CONFIRMATION DONE UPON REQUEST ONLY* Urine specimen (specimen) Urine specimen / Unknown 05/02/2017 11:40 AM EDT 05/02/2017 12:13 PM EDT Narrative [facility] - 05/02/2017 4:35 PM EDT [facility] [address] [place] [address] PT ID [id number] ORD# [id number] Thu Kwan PA-C LAB URINE AMBULATORY Final R esult [facility] [address] [place] [address], from Last 3 Months or Most Recently Relevant to Health Maintenance Insurance [employer] Care Teams Spool Sorter Relationship Specialty Start Date End Date Thu Kwan PA-C [address] [place] [address] PCP - General Internal Medicine 04/30/20
== END 2024-11-08 12:33 | disposition home or self-care (01) ==
LOC: HO.RESP 12:32
PROVIDERS: PCP Physician Assistant; Visit Provider Hospitalist
DX: J44.0 Chronic obstructive pulmonary disease with (acute) lower respiratory infection (principal)
CPT/HCPCS: 94010; 94640; 94727; 94729

== ENCOUNTER → 2024-11-08 13:09 | Outpatient (BNV) | payer MEDICAID, SELFPAY | PROVIDERS: PCP Physician Assistant; Visit Provider Internal Medicine Pulmonary Disease | DX: J44.0 Chronic obstructive pulmonary disease with (acute) lower respiratory infection (principal) | CPT/HCPCS: 94060; 94727; 94729 ==